=== PATIENT | male | born 1955 | race Caucasian/White ===

== ENCOUNTER 2024-07-29 07:11 | Inpatient (IN) ==
--- NOTE | 2024-05-12 14:54 | PAT Medication Instructions ---
Medication Instructions Date of Service May 12, 2024 Home Medications alfuzosin 10 mg tablet,extended release 24 hr 10 mg PO PM aspirin 81 mg tablet,delayed release 81 mg PO QAM coenzyme Q10 200 mg capsule (Co Q-10) 200 mg PO QAM fiber 1 tab PO PM lisinopril 5 mg tablet 5 mg PO QAM magnesium chloride 71.5 mg (magnesium chloride) tablet,delayed release (Slow- Mag) 71.5 mg PO QAM metoprolol succinate 50 mg tablet,extended release 24 hr (Toprol XL) 50 mg PO BID multivitamin 1 tab PO QAM rosuvastatin 40 mg tablet 40 mg PO HS trazodone 50 mg tablet 50 mg PO HS trimethoprim 100 mg tablet 100 mg PO PM MEDICATION INSTRUCTIONS: ASK your prescriber and surgeon aspirin 81 mg tablet,delayed release 81 mg PO QAM STOP taking 2 weeks before surgery coenzyme Q10 200 mg capsule (Co Q-10) 200 mg PO QAM DO NOT take the morning of surgery lisinopril 5 mg tablet 5 mg PO QAM multivitamin 1 tab PO QAM magnesium chloride 71.5 mg (magnesium chloride) tablet,delayed release (Slow- Mag) 71.5 mg PO QAM Take morning of surgery With a small sip of water, OTHERWISE NOTHING TO EAT OR DRINK AFTER MIDNIGHT: metoprolol succinate 50 mg tablet,extended release 24 hr (Toprol XL) 50 mg PO BID Take evening before surgery fiber 1 tab PO PM rosuvastatin 40 mg tablet 40 mg PO HS alfuzosin 10 mg tablet,extended release 24 hr 10 mg PO PM trazodone 50 mg tablet 50 mg PO HS trimethoprim 100 mg tablet 100 mg PO PM metoprolol succinate 50 mg tablet,extended release 24 hr (Toprol XL) 50 mg PO BID Other Notes If you have any questions please call us at [phone] or [phone] or [phone] or [phone]
--- NOTE | 2024-05-21 11:37 | Anesthesiology Consultation ---
Date of Service May 21, 2024 Assessment & Plan (1) Encounter for pre-operative examination: - Case discussed in detail with Dr. Palencia who advised patient is acceptable to proceed at current status. - medical clearance 05/26/24: "...based on my exam PAT labs, EKG and echo; pt a ppears to be at an acceptable risk of proposed procedure..." - Case discussed in detail with Dr. Dickson who advised patient should have echocardiogram updated prior to surgery. Patient and his were made aware of this at PAT visit, he reports a PCP clearance appointment 05/26 and would like to have echocardiogram ordered by PCP. Optimization form to be faxed to PCP and PAT testing faxed to that office (Dr. Bladimir Donnelly). Surgeon's office made aware. Echo was completed 05/26/24 and stable to review of cardiology records. - cardiology pre-operative notation 05/08/24: "...moderate risk...CAD s/p CABG x 3 (2009) s/p diagnostic LHC in 2020 revealing MARBLE COPER of the LCx following an abnormal stress test, bigeminal PVCs, chronic LBBB, aortic root dilation, hyperlipidemia and hypertension...feeling well...patent grafts to distal LAd, right posterior descending branch and second diagonal branch of the LAD...MALONEY graft feeds the distal LAD which is extremely small in caliber and diffusely diseased...left circumflex which was not bypassed has about a 60% ostial stenosis before 2 small marginal branches...circumflex is then totally occluded before a large posterior lateral branch...posterior lateral branch receives collaterals from the LAD and RCA...no obvious target for intervention...ischemic on a stress echo can be explained by the chronically occluded posterior lateral branch of the circumflex...not an ideal target for intervention...would recommend ongoing medical therapy and consideration of a trial of a PPI...no further ischemic or cardiac testing needed at this time...continue BB...intermediate risk of cardiac event during perioperative period...would recommend updating echocardiogram...patient would like to follow-up with cardiology as needed..." Chart Review Chart Review: Acceptable Risk for Surgery and Patient seen in Pre Admission Hannah ting Teaching & Discussion Pre-Anesthesia Teaching/Discussion Notes: Instructed NPO after midnight before surgery, except medications with 15 cc of water. Medication instructions provided according to the PAT guidelines. History Surgery Operation Date: 06/06/24 07:45 Proposed Procedures p L3-S1 Decompression and Fusion Spinal Cord Monitoring - Ricardo Gomez DO Height/Weight Height: 5 ft 11 in Weight: 112.9 kg Allergies Allergy/AdvReac Type Severity Reaction Status Date / Time No Known Allergies Allergy Verified 05/08/24 13:11 Medications Home Medications Medication Instructions Recorded Confirmed Last Taken alfuzosin 10 mg tablet,extended 10 mg PO PM 05/08/24 05/08/24 Unknown release 24 hr aspirin 81 mg tablet,delayed 81 mg PO QAM 05/08/24 05/08/24 Unknown release coenzyme Q10 200 mg capsule (Co 200 mg PO QAM 05/08/24 05/08/24 Unknown Q-10) fiber 1 tab PO PM 05/08/24 05/08/24 Unknown lisinopril 5 mg tablet 5 mg PO QAM 05/08/24 05/08/24 Unknown magnesium chloride 71.5 mg 71.5 mg PO QAM 05/08/24 05/08/24 Unknown (magnesium chloride) tablet,delayed release (Slow-Mag) metoprolol succinate 50 mg 50 mg PO BID 05/08/24 05/08/24 Unknown tablet,extended release 24 hr (Toprol XL) multivitamin 1 tab PO QAM 05/08/24 05/08/24 Unknown rosuvastatin 40 mg tablet 40 mg PO HS 05/08/24 05/08/24 Unknown trazodone 50 mg tablet 50 mg PO HS 05/08/24 05/08/24 Unknown trimethoprim 100 mg tablet 100 mg PO PM 05/08/24 05/08/24 Unknown Past Medical History Medical History Aortic root dilation 4.5 cm on 2020 echo Bigeminy bigeminal PVCs BPH (benign prostatic hyperplasia) CAD (coronary artery disease) CABG x 3 in 2009; MARBLE COPER of left Cx DDD (degenerative disc disease), lumbosacral Diverticulosis unsure of diverticulitis h/o-denies any recent flare Hyperlipidemia Hypertension controlled, stable per pt LBBB (left bundle branch block) Osteoarthritis Patient denies h/o stroke, seizures, heart failure, DM, blood clots/DVTs or blood transfusions. Exercise / Class Metabolic Activity II 4-5 Yardwork/Stairs/Walk up hill (denies chest discomfort or shortness of breath with one flight of stairs) Past Surgical History Surgical History History of cardiac cath 2020 > no stents History of colonoscopy History of tonsillectomy Hx of melanoma excision right shoulder Hx of shoulder surgery left in high school S/P correction of deviated nasal septum S/P triple vessel bypass 2009 Past Anesthesia History No Hx of Anesthesia Complications and No Family Hx of Anesthesia Complications History of PONV No Hx of PONV and No Hx of Motion Sickness Social History Smoking Status: Former smoker Do You Dip or Chew Tobacco: No Smoking End Date: 20 yrs ago Hx Alcohol Use: Yes Alcohol type: beer alcohol intake frequency: a few times a month Hx Substance Use: No substance use type: does not use Review of Systems Patient denies chest pain, shortness of breath, dyspnea on exertion, snoring, witnessed apneas, reflux, fever, chills, cough, wheezing, or palpitations. Physical Exam Vital Signs Vitals BP 118/69 P 58 TEMP 97.9 SP02 95% on RA RESP 19 Physical Patient resting comfortably in chair in no acute distress, alert and oriented, responding appropriately throughout visit Full cervical extension range of motion without pain TMD 3.5 finger breadths Mallampati Score 3 Dentition: upper plate, denies chipped or loose teeth, caps/crowns, implants or bridges Lungs: normal respiratory effort. Good air movement, clear throughout to auscultation, no adventitious breath sounds Cardiac: regular rate and rhythm, no murmurs noted Carotid arteries: negative bruit bilat Lab Results Anesthesia Preop Results Results Anesthesia Widget: WBC 6.54 K/ul (4.8-10.8) 05/21/24 Hgb 14.5 g/dl (14.0-18.0) 05/21/24 Hct 45.4 % (42.0-52.0) 05/21/24 Plt 196 K/uL (130-400) 05/21/24 Na 140 mmol/L (136-145) 05/21/24 K 5.0 mmol/L (3.5-5.1) 05/21/24 Cl 106 mmol/L (98-107) 05/21/24 CO2 28 mmol/L (21-32) 05/21/24 BUN 20 mg/dl (6-23) 05/21/24 Creat 1.14 mg/dl (0.6-1.4) 05/21/24 Glucose Level 93 mg/dl (70-99(Fasting)) 05/21/24 PT 12.4 Seconds (9.0-12.0) H 05/21/24 PTT 28 Seconds (21-31) 05/21/24 INR 1.2 (0.9-1.1) H 05/21/24 Urine Color Yellow 05/21/24 Urine Appearance Clear (Clear) 05/21/24 Urine pH 5.0 (4.5-7.5) 05/21/24 Urine Specific [place] 1.025 (1.000-1.030) 05/21/24 Urine Protein Negative (Negative) 05/21/24 Urine Glucose (UA) Negative (Negative) 05/21/24 Urine Ketones Negative (Negative) 05/21/24 Urine Blood Negative (Negative) 05/21/24 Urine Nitrite Negative (Negative) 05/21/24 Urine Bilirubin Negative (Negative) 05/21/24 Urine Urobilinogen Negative (Negative) 05/21/24 Urine Leukocyte Esterase Negative (Negative) 05/21/24 Blood Type O Positive 05/21/24 Antibody Screen NEGATIVE 05/21/24 Testing Electrocardiogram Date: 05/21/24 Sinus bradycardia, rate 58 bpm Right axis deviation LBBB Chest X-Ray Date: 05/21/24 No acute process. Echocardiogram Date: 05/26/24 EF 40-45% Mild cLVH Grade II diastolic dysfunction No LV wall motion abnormalities Mildly dilated LA Mild aortic regurgitation Moderate mitral regurgitation Mild tricuspid regurgitation Mildly dilated aortic root, 4.1 cm Large hypoechoic lesion in liver suggestive of a cyst "Consider further evaluation of mitral regurgitation' may benefit from ANTONIO"
[~2024-07-29 07:11] MED LIST: ACETAMINOPHEN 500 MG TAB PO SCH; CeleBREX 200 MG CAP PO SCH; GABAPENTIN 300 MG CAP PO SCH; LACTATED RINGER'S 1,000 ML IV SCH; LR 60ML/HR IV SCH; ceFAZolin 2000MG 2,000 MG/15 ML SYR IV SCH
[2024-07-29] MEDS ORDERED: ROCURONIUM BROMIDE 10 MG/ML 5 ML VIAL IV ONE ×4 (07:30→13:15)
[2024-07-29] MEDS ORDERED: ONDANSETRON INJ 2 MG/ML 2 ML VIAL ONE (07:30)
[2024-07-29] MEDS ORDERED: MIDAZOLAM HCL 1 MG/ML 2ML VIAL ONE (07:30)
[2024-07-29] MEDS ORDERED: GLYCOPYRROLATE 0.2 MG/ML VIAL ONE (07:30)
[2024-07-29] MEDS ORDERED: LIDOCAINE 2% 2 ML VIAL/AMP(20MG/ML) INFIL ONE (07:30)
[2024-07-29] MEDS ORDERED: fentaNYL citrate PF 100 MCG/2 ML VIAL ONE ×2 (07:30→11:21)
[2024-07-29] MEDS ORDERED: DEXAMETHASONE SOD INJ 4 MG/ML VIAL ONE (07:30)
[2024-07-29] MEDS ORDERED: PROPOFOL IV EMULSION 10 MG/ML 20 ML VIAL IV ONE (07:30)
[2024-07-29] MEDS ORDERED: SUGAMMADEX SODIUM 200 MG/2 ML VIAL IV ONE (07:36)
[2024-07-29] MEDS: LR 15ML/HR IV SCH (07:58)
[2024-07-29] MEDS: ACETAMINOPHEN 500 MG TAB PO SCH (07:58)
[2024-07-29] MEDS: CeleBREX 200 MG CAP PO SCH (07:59)
[2024-07-29] MEDS: LR 60ML/HR IV SCH (07:59)
[2024-07-29] MEDS: GABAPENTIN 300 MG CAP PO SCH (07:59)
--- NOTE | 2024-07-29 08:52 | History & Physical Bridge Note ---
Date of Service July 29, 2024 History & Physical Bridge Note I have examined the patient, reviewed the History & Physical and in the interval since the performance of the History & Physical I have noted the following changes of clinical significance: no changes noted
[2024-07-29] MEDS ORDERED: HYDROmorphone INJ 1 MG/ML SYRINGE IV PRN ×2 (08:53→13:42)
[2024-07-29] MEDS ORDERED: ATROPINE SULFATE 0.1 MG/ML 10ML SYR IV PRN (08:53)
[2024-07-29] MEDS ORDERED: PROMETHAZINE HCL 6.25 MG in SODIUM CHLORIDE 0.9% 50 ML IV PRN (08:53)
[2024-07-29] MEDS ORDERED: LABETALOL HCL IV 5 MG/ML 20ML IV PRN (08:53)
[2024-07-29] MEDS ORDERED: ONDANSETRON INJ 2 MG/ML 2 ML VIAL IV PRN ×2 (08:53→13:42)
--- NOTE | 2024-07-29 08:53 | History & Physical Report ---
Date of Service July 29, 2024 Assessment & Plan (1) Neurogenic claudication due to lumbar spinal stenosis: Plan: L3-S1 decompression and fusion History of Present Illness Chief Complaint: Back and leg pain Primary Care Provider: David Donnelly MD This is a 69-year-old male presents with chronic persistent back and leg pain after failing course of nonoperative care is here for surgical invention. Allergies Allergy/AdvReac Type Severity Reaction Status Date / Time No Known Allergies Allergy Verified 07/29/24 07:46 Home Medications Medication Instructions Recorded Confirmed Type alfuzosin 10 mg tablet,extended 10 mg PO PM 05/08/24 07/29/24 History release 24 hr (Uroxatral) aspirin 81 mg tablet,delayed 81 mg PO QAM 05/08/24 07/29/24 History release coenzyme Q10 200 mg capsule (Co 200 mg PO QAM 05/08/24 07/29/24 History Q-10) fiber 1 tab PO PM 05/08/24 07/29/24 History lisinopril 5 mg tablet 5 mg PO QAM 05/08/24 07/29/24 History magnesium chloride 71.5 mg 71.5 mg PO QAM 05/08/24 07/29/24 History (magnesium chloride) tablet,delayed release (Slow-Mag) metoprolol succinate 50 mg 50 mg PO BID 05/08/24 07/29/24 History tablet,extended release 24 hr (Toprol XL) multivitamin 1 tab PO QAM 05/08/24 07/29/24 History rosuvastatin 40 mg tablet 40 mg PO HS 05/08/24 07/29/24 History trazodone 50 mg tablet 50 mg PO HS 05/08/24 07/29/24 History trimethoprim 100 mg tablet 100 mg PO PM 05/08/24 07/29/24 History Vitamin D3 1 tab PO BID 07/08/24 07/29/24 History loratadine 10 mg tablet (Claritin) 10 mg PO DAILY 07/08/24 07/29/24 History Past Med/Surg History Problem List (Updated 07/29/24 @ 08:53 by Ricardo Gomez DO) Neurogenic claudication due to lumbar spinal stenosis Medical History Aortic root dilation 4.5 cm on 2020 echo Bigeminy bigeminal PVCs BPH (benign prostatic hyperplasia) CAD (coronary artery disease) CABG x 3 in 2009; [employer] of left Cx DDD (degenerative disc disease), lumbosacral Diverticulosis unsure of diverticulitis h/o-denies any recent flare Hyperlipidemia Hypertension controlled, stable per pt LBBB (left bundle branch block) Osteoarthritis Surgical History History of cardiac cath 2020 > no stents History of colonoscopy History of tonsillectomy Hx of melanoma excision right shoulder Hx of shoulder surgery left in high school S/P correction of deviated nasal septum S/P triple vessel bypass 2009 Social History Smoking Status: Former smoker Smoking End Date: 20 yrs ago; Second Hand Exposure: No; Do You Dip or Chew Tobacco: No; Tobacco Cessation Education Requested by Patient: No Hx Alcohol Use: Yes Alcohol type: beer Hx Substance Use: Yes Substance Use Type Other:: rare use > advised Preferred Language: Icelandic Communication Ability: Effective Costing Manager Required: No Beliefs That Will Affect Care: None Current Living Situation: Spouse Other Information That Helps Us Care for You: No Feels Safe at Home: Yes Safety Concerns: Feels Safe At This Time Assistive Devices: Denture - Upper and Glasses Physical Exam Physical Exam: Patient is alert and oriented Heart regular rhythm Lungs clear Results & Data Results & Data Vital Signs (Past 12 Hours) Vital Signs Temp Pulse Resp BP Pulse Ox O2 Del Method 07/29/24 07:51 36.5 C 92 H 22 146/81 H 96 Room Air
[2024-07-29] MEDS: ceFAZolin 2000MG 2,000 MG/15 ML SYR IV SCH ×2 (09:16→17:39)
[2024-07-29] MEDS: BUPIVACAINE/EPINEPHRINE 0.25% 1:200,000 30 ML VIAL ONE (10:06)
[2024-07-29] MEDS: ceFAZolin 330 MG/ML 1 GM VIAL ONE (10:08)
[2024-07-29] MEDS: SURGICEL ABSORB HEMOSTAT 2IN X 14IN TOP ONE (11:44)
[2024-07-29] MEDS: FLOSEAL HEMOSTATIC MATRIX 10ML TOP ONE (12:08)
--- NOTE | 2024-07-29 12:20 | Operative Report ---
Post Operative Report Pre & Post Diagnosis Operation Date: 07/29/24 09:05 Pre-Op Diagnosis: Spinal Stenosis with Neurogenic Claudication, Lumbar spinal stenosis Spondylolisthesis L4-L5 Post-Op Diagnosis: Same I identified the patient and participated in the time-out.: Yes Procedure Operation Date: 07/29/24 09:05 Actual Procedures #1 lumbar decompression with bilateral medial facetectomies and foraminotomies L3-L4, L4-L5 and L5-S1. #2 posterior spinal fusion L3-S1. #3 placement posterior segmental instrumentation L3-S1. #4 interbody fusion L3-L4, L4-5 and L5-S1. #5 placement of Spira 11 x 26 mm at L3-L4, 10 x 26 mm at L4-L5 and 14 x 26 mm x 2 at L5-S1. #6 placement locally harvested morselized autograft posterior gutters. #7 placement infuse collagen sponge combined with Koros in the posterior lateral gutters and os design interbody space. #8 application of versa wrap of the exposed dura. Surgeon Ricardo Gomez, DO [employer]cher[employer] Jessica Valdez Estimated Blood Loss 650 Findings See Below The patient is 5 foot 11 weighing over 112 kg with a BMI in excess of 34. This combined with an EBL of greater than 600 cc. His significant technical difficulty with positioning exposure and the procedure itself. This at least 50% increased operative time. And recommending a modifier 22. Specimens None Indications This is a 69-year-old male presents publish diagnosis of failed course of nonoperative care is here for surgical invention. Description of Procedure Patient is met with identified informed consent obtained. Patient was then taken to the operative suite underwent intubation placed in a prone position on the Niall table on top of the Hemanth frame. All bony promises well-padded eyes inspected to ensure no external pressure placed upon the. This point the lumbar spine was prepped and draped in normal sterile fashion. Sharp dissection with the assistance of Bovie cautery was performed down to and exposing the lamina transverse processes of L3-L4-L5 and sacral ala bilaterally. From caudal to cephalad fashion complete laminectomy of L5 was performed including bilateral medial facetectomies and foraminotomies addressing severe spinal stenosis. Then performed a complete laminectomy of L4 with bilateral medial facetectomies and foraminotomies again addressing severe spinal stenosis and lastly a complete laminectomy of L3 with bilateral medial facetectomies and foraminotomies addressing severe spinal stenosis. Pedicle screws were then placed in L3-L4-L5 and S1 levels bilaterally with assistance of fluoroscopy the proper size jaclyn contoured and placed. By way of transforaminal approach on the right discectomy of L5-S1 was performed endplates guided to subcortical and bone and a 14 x 26 mm spiral cage filled with os design bone graft tapped in position. Then proceeded to the transforaminal region at L5-S1 on the left. Again discectomy performed. Endplates grade 2 subcortical main bone and a second 14 x 26 mm spiral cage filled with os designed tapped into position. Then proceeded to L for L5 transforaminal region on the right. A complete discectomy was performed. Endplates burred to subcortical bleeding bone. A 10 x 26 mm Spira cage filled with os design bone graft tapped in position. Lastly approached L3-L4. Again by way of transforaminal approach and right a complete discectomy performed endplates corrected to subcortical white bone and a 11 x 26 mm Spira cage filled with os design tapped in position. The rods were then locked in final position bilaterally. The transverse processes of L3 L4-5 and the sacral ala burred to subcortical waiting room. Infuse collagen sponge combined with Koros and local autograft placed in the posterior gutters. 15 round MONAE drain inserted. Versa wrap placed over the exposed dura. The incision was then closed with 1 Vicryl the fascia 2-0 Vicryl subcutaneously and 4 Monocryl for final skin closure. Steri-Strips sterile dressing placed. Patient waken taken PACU stable condition. Please note spinal cord monitoring was utilized at the procedure no changes noted. Jessica Valdez was present out the entire procedure and all the patient positioning complex portions of the surgery and fascial closure. Im ordering 20 grams of Triple [place] Collagen Powder (Authentic Response [id number]) to treat an incision wound that was caused by a spine procedure. The incision is approximately 2 cm(W) x 4 cm(L) into the joint (D) in size and is a full thickness wound. Triple [place] collagen comes in 1 gram packets so 20 packets were ordered. Given the size of the wound, with light to moderate exudate I chose to order a 20 day supply. The patient will be provided instructions for proper application of the collagen wound kit. The patient will be asked to apply the collagen powder daily and then cover it with sterile dressings dispensed. Collagen was selected as I expect the collagen to attract monocytes and fibroblasts, act as a sacrificial substrate for MMPs, and ultimately proved a matrix for tissue and vessel growth. The collagen will act as a primary dressing in this scenario. It is medically necessary for proper healing of these wounds to improve bioavailability and contact with each wound surface, this is also to help prevent infection of wounds and promote healing ultimately leading to a better healing outcome and limit the risk of infection. I attest to the content of the Intraoperative Record and any orders documented therein. Any exceptions are noted below.
--- OUTSIDE RECORDS SUMMARY | 2024-07-29 13:27 | External Medical Summary | Continuity of Care Document ---
Author Name Unknown Organization [facility] Address [address] [place] [address] Phone [phone] Care Team Providers Care Production Finisher Name Role Phone Dermatology-[facility] - Dermatology Care Team Informat ion Senior Abap Developer [phone] [facility] Cardiology Care Team Informat ion Senior Abap Developer [phone] Orthopedic Surgery [facility] - [facility] Care Team Information Senior Abap Developer [phone] Aditi Glover D.P.M. Care Team Information Rece iver [phone] Riley Palmer MD Care Team Information Senior Abap Developer [phone] [facility] Office Care Team Information Senior Abap Developer [phone] Ricardo Gomez DO Care Team Information Receive r [phone] [facility] - [facility] Care Team Information Senior Abap Developer [phone] [facility] [employer] Care Team Information Re ceiver [phone] Problems Active Problems Provider Date Coronary atherosclerosis David Donnelly MD Onset: 06/29/2016 Essential hypertension David Donnelly MD Onset: 0 03/10/2013 Mixed hyperlipidemia David Donnelly MD Onset: Chronic prostatitis David Donnelly MD Onset: 04/2013 Hypomagnesemia David Donnelly MD Onset: 12/31/19 15 Ex-smoker David Donnelly MD Onset: 12/31/19 15 Note: 30 yr. hx Insomnia David Donnelly MD Onset: 04/11/20 17 Spinal stenosis of lumbosacral region David gill MD Onset: 04/11/2017 History of coronary artery bypass grafting David Donnelly MD Onset: 05/28/2019 Chronic combined systolic an d diastolic heart failure David Donnelly MD Onset: 06/25/2024 Morbid obesity David Donnelly MD Onset: 12/12/19 Social History Type Date Description Comments Sex Unknown Cigarette Use 04/11/2017 Quit - Age 48 Tobacco Use Start: Unknown End: Unknown Former Cigarette Smoker Smoking Status Reviewed: 06/25/24 Former Cigarette Smoker Tobacco Use Start: Unknown Never Smoked Cigars Tobacco Use Start: Unknown Never Smoked A Pipe Smokeless Tobacco Never Used Smo keless Tobacco ETOH Use Occasionally con sumes alcohol Tobacco Use Reviewed: 09/03/04 Quit Smoking post 30 yr hx Recreational Drug Use Denies Drug Use Exercise Type/Frequency Exercises sporadi adarsh Limited due to spinal stenosis and R leg radiculopathy Allergies and adverse reactions Description No Known Drug Allergies Medications Active Medications SIG Qnty Indications Order ing Provider Date Sildenafil Yjoxjmj92og Tablets 1 to 5 tablets prior to intercourse as needed 30tabs N52.01 David Donnelly MD 05/18/2021 Metoprolol Succinate ER50mg Tablets ER 24HR Take 1 Tablet Twice A Day 180tabs I25.720 David Donnelly MD 04/11/2021 I10 Trazodone KEM68he Tablets Take 1 Tablet AT Bedtime 90tabs G47.00 Zhen Bowman MD 12/06/[address] 1 po qd 30tabs E83.42 Unknown 0 Multiple VitaminTablets 30tabs Unknow n Ucfggqh77ax Tablets DR 1 po qd Unknown Ajgxhxif723hl Tablets 2 po qd Unknown Alfuzosin HCL ER10mg Tablets ER 24HR Take 1 Tablet Daily 90tabs N41.1 David Donnelly MD Byfbvepzzz0nw Tablets take 1 tablet daily 90tabs I10 David Donnelly MD Muyiyscgagpi258om Tablets take 1 tablet daily 90tabs N41.1 David Donnelly MD Rosuvastatin Zfczjkt01ik Tablets 1 by mouth every day 90tabs E78.2 Zhen Bowman MD [id number] Capsules 1 by mouth every day Unknown History Medications Kaevnhliwezv375fp Tablets 2 tabs by mouth today then 1 tab daily x 4 days 1Pak R05.9 David Donnelly MD 06/10/2024 - 06/15/2024 Whukzozlgu03fm Tablets 1 tab once daily x 5 days 5tabs R05.9 David Donnelly MD 06/10/2024 - 06/15/2024 Immunizations CPT Code Status Date Vaccine Lot # [id number] Given 06/25/2024 Influenza Vac, Split, Preservative Free High Dose Age 65 & > [id number] 92293 Given 06/28/2023 Sarscov2 Vaccin e 50 mcg/0.5 ML For Im Use 12 Yrs And Older [id number] 08713 Given 06/06/2023 Influenza Vaccine High Do se 0.5ML Age 65 & > [id number] 16615 Given 05/29/2022 Influenza Vaccine High Do se 0.5ML Age 65 & > [id number] 89918 Given 12/14/2021 Moderna Covid-1 9 Vaccine 50mcg Booster-EMR Doc Only [id number] 00406 Given 06/27/2021 Moderna Covid-1 9 Vaccine 50mcg Booster-EMR Doc Only [id number] Given 06/15/2021 Influenza Vaccine High Do se 0.5ML Age 65 & > [id number] 04217 Given 05/18/2021 Pneumococcal Vaccine/Pneu movax 23 [id number] 61202 Given 11/16/2020 Moderna Sars-Co v-2 (Cov-19) vacc,100 mcg/ 0.5 mL 12Y+EMR Doc Only [id number] 09794 Given 10/01/2020 Moderna Sars-Co v-2 (Cov-19) vacc,100 mcg/ 0.5 mL 12Y+EMR Doc Only [id number] 74042 Given 06/09/2020 Influenza Vaccine High Do se 0.5ML Age 65 & > [id number] 23675 Given 04/28/2020 Pneumococcal Conjugate-Pr evnar 13 [id number] 73200 Given 06/18/2019 Influenza Virus Vaccine, Quadrivalent, Im Use [id number] 47868 Given 06/14/2018 Influenza Virus Vaccine, Quadrivalent, Im Use [id number] 20811 Given 06/06/2017 Influenza Virus Vaccine, Quadrivalent, Im Use [id number] 62451 Given 06/30/2016 Influenza Virus Vaccine, Quadrivalent, Im Use [id number] 81130 Given 07/26/2015 Zostavax Vaccine 83814 Given 06/15/2015 Influenza Virus Vaccine, Quadrivalent, Im Use [id number] 61578 Given 06/23/2014 Influenza Virus Vaccine, Quadrivalent, Im Use [id number] 25233 Given 06/23/2013 Influenza Vac, Split 6 Mo nths And Older [id number] 64708 Given 03/07/2010 Pneumococcal Vaccine/Pneu movax 23 77998 Given 09/03/2009 Tdap (Tetanus, diphtheria & acel. pertussis) Adacel or Boostrix Vital Signs Date Vital Result Comment 06/25/2024 10:02am BP Systolic 128 mmHg BP Diastolic 76 mmHg Heart Rate 64 /min Respiratory Rate 16 /min Weight 246.00 lb Weight 111.586 kg Height 70 inches 5'10" BMI (Body Mass Index) 35.3 kg/m2 [place] Body Weight 166 lb 06/10/2024 7:43am Body Temperature 97.8 F Heart Rate 65 /min Respiratory Rate 16 /min Weight 246.00 lb Weight 111.586 kg Results Test Acquired Date Facility Test Result H/L Range N ote Comp. Met 06/04/2024 [facility]. [address] [place] [address] [phone] Glucose 104 mg/dL 70-110 BUN 16 mg/dL 6-25 Creatinine 1.0 mg/dL 0.7-1.3 Sodium 141 mEq/L 135-145 Potassium 4.3 mEq/L 3.5-5.0 Chloride 105 mEq/L 95-107 Co-2 25 mEq/L 24-31 Alk Phos 58 IU/L 43-122 Alt(SGPT) 20 IU/L 10-40 Ast(Sgot) 20 IU/L 3-42 T.Bilirubin 0.6 mg/dL 0.1-1.3 Calcium 8.9 mg/dL 8.5-10.6 Tot.Protein 6.4 g/dL 5.8-8.0 Albumin 4.3 g/dL 3.0-5.2 Globulin 2.1 g/dL 2.0-3.4 GFR 79 ML/MIN/1.73 SQM >60 Lipid 06/04/2024 [facility]. [address] [place] [address] [phone] Cholesterol 113 mg/dL 0-200 1 Triglyceride 82 mg/dL 0-150 2 HDLD 49 mg/dL See Comment 3 Measured LDL 66 mg/dL 0-130 4 Calc VLDL 16.4 mg/dL See Comment 5 Chol/HDL 2.3 RATIO See Comment 6 Non-HDL 64 mg/dL See Comment 7 Laboratory test finding 06/04/2024 [facility]. [address] [place] [address] [phone] Psa2 1.2 ng/mL 0.0-4.0 1 CHOLESTEROL Less than 200mg/dl Low risk 201-239 mg/dl Borderline risk Equal to or greater 240mg/dl High risk 2 TRIGLYCERIDES Less than 150mg/dl Normal 150-199mg/dl Borderline 200-499mg/dl High Greater than 500mg/dl Very High 3 HDL <40mg/dl Elevated Risk 41-59mg/dl Risk >=60mg/dl Least Risk 4 LDL <100mg/dl Optimal 100-129mg/dl Near Optimal 130-159mg/dl Borderline High 160-189mg/dl High >=190 Very High 5 VLDL Less than 30mg/dl Normal 6 CHOL/HDL <4.0 Optimal 4.0-5.0 Borderline >6.0 High Risk 7 NON-HDL 30mg/dl higher than LDL Target Procedures Date Code Description Status 06/25/2024 3078F PVRP Diastolic BP <80 mmHg C ompleted 06/25/2024 3074F PVRP Systolic BP <130 mmHg C ompleted 06/25/2024 1101F PT SCR Future Fall Risk, No Fall Or 1 W/Out Injury Completed 06/10/2024 G2211 Continuation of care e/m vis it add on Completed 06/04/2024 20232 Venipuncture Routine Complet ed 05/26/2024 41005 Interpretation Echocardiogra phy, Tranthoracic Completed 05/26/2024 3078F PVRP Diastolic BP <80 mmHg C ompleted 05/26/2024 3074F PVRP Systolic BP <130 mmHg C ompleted 03/24/2024 G2211 Continuation of care e/m vis it add on Completed 02/13/2023 [id number] Colonoscopy Completed Medical Devices Description No Information Available Encounters Type Date Location Provider Dx Diagnosis Office Visit 06/25/2024 10:00a Raghav Donnelly MD I25.10 Athscl heart di sease [place] coronary artery w/o ang pctrs I50.42 Chronic combined sys tolic and diastolic hrt fail I10 Essential (primary) hypertension E78.2 Mixed hyperlipidemia E66.01 Morbid (severe) obes ity due to excess calories N41.1 Chronic prostatitis E83.42 Hypomagnesemia G47.00 Insomnia, unspecifie d M48.07 Spinal stenosis, lum bosacral region 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 Z00.00 Encntr for general a dult medical exam w/o abnormal findings Z68.35 Body mass index [BMI ] 35.0-35.9, adult Office Visit 06/10/2024 7:45a Raghav ledezma MD R05.9 Cough, unspecified Office Visit 05/26/2024 10:00a Raghav gill MD Z01.818 Encounter for other preprocedural examination M48.07 Spinal stenosis, lum bosacral region I25.10 Athscl heart disease of [place] coronary artery w/o ang pctrs I10 Essential (primary) hypertension E78.2 Mixed hyperlipidemia E66.01 Morbid (severe) obes ity due to excess calories 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 Z68.35 Body mass index [BMI ] 35.0-35.9, adult Office Visit 03/24/2024 11:00a Raghav Donnelly MD M48.07 Spinal stenosis, lumbosacral region Assessments Date Code Description Provider 06/25/2024 I25.10 Atherosclerotic heart disease of [place] coronary artery without angina pectoris David Donnelly MD 06/25/2024 I50.42 Chronic combined systolic (congestive) and diastolic (congestive) heart failure David Donnelly MD 06/25/2024 I10 Essential (primary) hyperten shannen David Donnelly MD 06/25/2024 E78.2 Mixed hyperlipidemia David child MD 06/25/2024 E66.01 Morbid (severe) obesity due to excess calories David Donnelly MD 06/25/2024 N41.1 Chronic prostatitis David sierra MD 06/25/2024 E83.42 Hypomagnesemia David Donnelly MD 06/25/2024 G47.00 Insomnia, unspecified David Donnelly MD 06/25/2024 M48.07 Spinal stenosis, lumbosacral region David Donnelly MD 06/25/2024 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 David Donnelly MD 06/25/2024 Z00.00 Encounter for ge neral adult medical examination without abnormal findings David Donnelly MD 06/25/2024 Z68.35 Body mass index [BMI] 35.0-3 5.9, adult David Donnelly MD 06/10/2024 R05.9 Cough, unspecified David hanley MD 06/04/2024 E78.2 Mixed hyperlipidemia David child MD 06/04/2024 E78.2 Mixed hyperlipidemia [place] [facility] 06/04/2024 N41.1 Chronic prostatitis David sierra MD 06/04/2024 N41.1 Chronic prostatitis [facility] Nurse 05/26/2024 I25.10 Atherosclerotic heart disease of [place] coronary artery without angina pectoris Tomi Mcnair DO 05/26/2024 I25.10 Atherosclerotic heart disease of [place] coronary artery without angina pectoris David Donnelly MD 05/26/2024 Z01.818 Encounter for other preproce dural examination David Donnelly MD 05/26/2024 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 Tomi Mcnair, 05/26/2024 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 David Donnelly MD 05/26/2024 M48.07 Spinal stenosis, lumbosacral region David Donnelly MD 05/26/2024 I25.10 Atherosclerotic heart disease of [place] coronary artery with David Donnelly MD 05/26/2024 I10 Essential (primary) hyperten shannen David Donnelly MD 05/26/2024 E78.2 Mixed hyperlipidemia David child MD 05/26/2024 E66.01 Morbid (severe) obesity due to excess calories David Donnelly MD 05/26/2024 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 David Donnelly MD 05/26/2024 Z68.35 Body mass index [BMI] 35.0-3 5.9, adult David Donnelly MD 05/26/2024 I25.10 Atherosclerotic heart disease of [place] coronary artery without angina pectoris ECHO [facility] 05/26/2024 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 ECHO [facility] 03/24/2024 M48.07 Spinal stenosis, lumbosacral region David Donnelly MD Plan of Treatment Future Appointment(s):* 12/16/2024 7:00 am - [facility] * 12/23/2024 8:45 am - David Donnelly MD at [facility] Functional Status Description No Information Available Mental Status Description No Information Available Referrals Refer to Dr Reason for Referral Status Appt Ricardo Harding DO arthritis, canal phyllis nosis and bulging discs that are pressing on nerves that is all worsening from prior study Pt has imaged from MRI from 03/2024 Closed 05/01/2024 [facility] [address] [place] [address], [place] [id number] [phone]
--- OUTSIDE RECORDS SUMMARY | 2024-07-29 13:28 | External Medical Summary | Continuity of Care Document ---
Author Name Unknown Organization [facility] Address [address] [place] [address] Phone [phone] Care Team Providers Care Spectrograph Operator Name Role Phone Dermatology-[facility] - Dermatology Care Team Informat ion Plaster Mold Maker [phone] [facility] Cardiology Care Team Informat ion Plaster Mold Maker [phone] Orthopedic Surgery S - [facility] Care Team Information Plaster Mold Maker [phone] Aditi Glover D.P.M. Care Team Information Rece iver [phone] Riley Palmer MD Care Team Information Plaster Mold Maker [phone] [facility] Office Care Team Information Plaster Mold Maker [phone] Ricardo Gomez DO Care Team Information Receive r [phone] [facility] - [facility] Care Team Information Plaster Mold Maker [phone] [employer] [employer] Care Team Information Re ceiver [phone] Problems Active Problems Provider Date Coronary atherosclerosis [...] bypass grafting David Donnelly MD Onset: 05/28/2019 Morbid obesity David Donnelly MD Onset: 12/12/19 Social History Type Date Description Comments Sex Unknown Cigarette Use 04/11/2017 Quit - Age 48 Tobacco Use Start: Unknown End: Unknown Former Cigarette Smoker Smoking Status Reviewed: 06/10/24 Former Cigarette Smoker Tobacco Use Start: Unknown [...] SIG Qnty Indications Order ing Provider Date Hjmeflyxnqfi789dd Tablets 2 tabs by mouth today then 1 tab daily x 4 days 1Pak R05.9 David Donnelly MD 06/10/2024 - 06/15/2024 Nfbmakahla50se Tablets 1 tab once daily x 5 days 5tabs R05.9 David Donnelly MD 06/10/2024 - 06/15/2024 Sildenafil Ocjxcph27th Tablets 1 to 5 tablets prior to intercourse as needed 30tabs N52.01 David Donnelly MD 05/18/2021 Metoprolol Succinate ER50mg Tablets ER 24HR Take 1 Tablet Twice A Day 180tabs I25.720 David Donnelly MD 04/11/2021 I10 Trazodone WFI40dk Tablets Take 1 Tablet AT Bedtime 90tabs G47.00 Zhen Bowman MD 12/06/[address] Slow-MagTablets [address] 1 po qd 30tabs E83.42 Unknown 0 Multiple VitaminTablets 30tabs Unknow n Pmqioly27dz Tablets DR 1 po qd Unknown Zelvkxaa367ty Tablets 2 po qd Unknown Alfuzosin HCL ER10mg Tablets ER 24HR Take 1 Tablet Daily 90tabs N41.1 David Donnelly MD Tathxstfmj6gl Tablets take 1 tablet daily 90tabs I10 David Donnelly MD Lzgnlwjlesop517by Tablets take 1 tablet daily 90tabs N41.1 David Donnelly MD Rosuvastatin Zhdwfdv77tt Tablets 1 by mouth every day 90tabs E78.2 Zhen Bowman MD Coq-[id number] Capsules 1 by mouth every day Unknown Immunizations CPT Code Status Date Vaccine Lot # [id number] Given 06/28/2023 Sarscov2 Vaccin e 50 mcg/0.5 ML For Im Use 12 Yrs And Older [id number] 80403 Given 06/06/2023 Influenza Vaccine High Do se 0.5ML Age 65 & > [id number] 94976 Given 05/29/2022 Influenza Vaccine High Do se 0.5ML Age 65 & > [id number] 07421 Given 12/14/2021 Moderna Covid-1 9 Vaccine 50mcg Booster-EMR Doc Only [id number] 48857 Given 06/27/2021 Moderna Covid-1 9 Vaccine 50mcg Booster-EMR Doc Only 74447 Given 06/15/2021 Influenza Vaccine High Do se 0.5ML Age 65 & > [id number] 16576 Given 05/18/2021 Pneumococcal Vaccine/Pneu movax 23 [id number] 66350 Given 11/16/2020 Moderna Sars-Co v-2 (Cov-19) vacc,100 mcg/ 0.5 mL 12Y+EMR Doc Only [id number] 02445 Given 10/01/2020 Moderna Sars-Co v-2 (Cov-19) vacc,100 mcg/ 0.5 mL 12Y+EMR Doc Only [id number] 50106 Given 06/09/2020 Influenza Vaccine High Do se 0.5ML Age 65 & > [id number] 51398 Given 04/28/2020 Pneumococcal Conjugate-Pr evnar 13 [id number] 48044 Given 06/18/2019 Influenza Virus Vaccine, Quadrivalent, Im Use [id number] 19958 Given 06/14/2018 Influenza Virus Vaccine, Quadrivalent, Im Use [id number] 55856 Given 06/06/2017 Influenza Virus Vaccine, Quadrivalent, Im Use [id number] 39913 Given 06/30/2016 Influenza Virus Vaccine, Quadrivalent, Im Use [id number] 53366 Given 07/26/2015 Zostavax Vaccine 17784 Given 06/15/2015 Influenza Virus Vaccine, Quadrivalent, Im Use [id number] 69695 Given 06/23/2014 Influenza Virus Vaccine, Quadrivalent, Im Use [id number] 07042 Given 06/23/2013 Influenza Vac, Split 6 Mo nths And Older [id number] 90043 Given 03/07/2010 Pneumococcal Vaccine/Pneu movax 23 42239 Given 09/03/2009 Tdap (Tetanus, diphtheria & acel. pertussis) Adacel or Boostrix Vital Signs Date Vital Result Comment 06/10/2024 7:43am Body Temperature 97.8 F Heart Rate 65 /min Respiratory Rate 16 /min Weight 246.00 lb Weight 111.586 kg 05/26/2024 10:12am BP Systolic 122 mmHg BP Diastolic 64 mmHg Heart Rate 65 /min Respiratory Rate 16 /min Weight 246.00 lb Weight 111.586 kg Height 70 inches 5'10" BMI (Body Mass Index) 35.3 kg/m2 [place] Body Weight 166 lb Results Test Acquired Date Facility Test Result H/L Range N ote Comp. Met 06/04/2024 [facility]. [address] [place] [address] Glucose 104 mg/dL 70-110 BUN 16 mg/dL [...] GFR 79 ML/MIN/1.73 SQM >60 Lipid 06/04/2024 [facility]. [address] [place] [address] [phone] Cholesterol 113 mg/dL 0-200 1 Triglyceride 82 mg/dL 0-150 2 HDLD 49 mg/dL See Comment 3 Measured LDL 66 mg/dL 0-130 4 Calc VLDL 16.4 mg/dL See Comment 5 Chol/HDL 2.3 RATIO See Comment 6 Non-HDL 64 mg/dL See Comment 7 Laboratory test finding 06/04/2024 [facility]. [address] [place] [address] Psa2 1.2 ng/mL 0.0-4.0 1 CHOLESTEROL Less [...] LDL Target Procedures Date Code Description Status 06/04/2024 16718 Venipuncture Routine Complet ed 05/26/2024 74725 Interpretation Echocardiogra phy, Tranthoracic Completed 05/26/2024 3078F PVRP Diastolic BP <80 mmHg C ompleted 05/26/2024 3074F PVRP Systolic BP <130 mmHg C ompleted 03/24/2024 G2211 Continuation of care e/m vis it add on Completed 12/12/2023 G2211 Continuation of care e/m vis it add on Completed 12/12/2023 3078F PVRP Diastolic BP <80 mmHg C ompleted 12/12/2023 3074F PVRP Systolic BP <130 mmHg C ompleted 02/13/2023 [id number] Colonoscopy Completed Medical Devices Description No Information Available Encounters Type Date Location Provider Dx Diagnosis Office Visit 06/10/2024 7:45a Raghav Donnelly MD R05.9 Cough, unspecif ied Office Visit 05/26/2024 10:00a Raghav Donnelly MD Z01.818 Encounter for o ther preprocedural examination M48.07 Spinal stenosis, lum bosacral region I25.10 Athscl heart disease of [place] coronary artery w/o ang pctrs I10 Essential (primary) hypertension E78.2 Mixed hyperlipidemia E66.01 Morbid (severe) obes ity due to excess calories 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 Z68.35 Body mass index [BMI ] 35.0-35.9, adult Office Visit 03/24/2024 11:00a Raghav Donnelly MD M48.07 Spinal stenosis, lumbosacral region Office Visit 12/12/2023 10:30a Raghav Donnelly MD I25.10 Athscl heart disease of [place] coronary artery w/o ang pctrs I10 Essential (primary) hypertension E78.2 Mixed hyperlipidemia E66.01 Morbid (severe) obes ity due to excess calories N41.1 Chronic prostatitis M48.07 Spinal stenosis, lum bosacral region E83.42 Hypomagnesemia G47.00 Insomnia, unspecifie d 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 Z68.35 Body mass index [BMI ] 35.0-35.9, adult Assessments Date Code Description Provider 06/10/2024 R05.9 Cough, unspecified David hanley MD 06/04/2024 E78.2 Mixed hyperlipidemia [facility] [place] [facility] 06/04/2024 N41.1 Chronic prostatitis [facility] Nurse 05/26/2024 I25.10 Atherosclerotic heart disease of [place] coronary artery without angina pectoris Tomi Mcnair, DO 05/26/2024 I25.10 Atherosclerotic heart disease of [place] coronary artery without angina pectoris David Donnelly MD 05/26/2024 Z01.818 Encounter for other preproce dural examination David Donnelly MD 05/26/2024 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 Tomi Mcnair, DO 05/26/2024 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 David Donnelly MD 05/26/2024 M48.07 Spinal stenosis, lumbosacral region David Donnelly MD 05/26/2024 I25.10 Atherosclerotic heart disease of [place] coronary artery with David Donnelly MD 05/26/2024 I10 Essential (primary) hyperten shannen David Donnelly MD 05/26/2024 E78.2 Mixed hyperlipidemia David child MD 05/26/2024 E66.01 Morbid (severe) obesity due to excess calories David Donnelly MD 05/26/2024 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 David Donnelly MD 05/26/2024 Z68.35 Body mass index [BMI] 35.0-3 5.9, adult David Donnelly MD 05/26/2024 I25.10 Atherosclerotic heart disease of [place] coronary artery without angina pectoris ECHO [facility] 05/26/2024 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 ECHO [facility] 03/24/2024 M48.07 Spinal stenosis, lumbosacral region David Donnelly MD 12/12/2023 I25.10 Atherosclerotic heart disease of [place] coronary artery with David Donnelly MD 12/12/2023 I10 Essential (primary) hyperten shannen David Donnelly MD 12/12/2023 E78.2 Mixed hyperlipidemia David child MD 12/12/2023 E66.01 Morbid (severe) obesity due to excess calories David Donnelly MD 12/12/2023 N41.1 Chronic prostatitis David sierra MD 12/12/2023 M48.07 Spinal stenosis, lumbosacral region David Donnelly MD 12/12/2023 E83.42 Hypomagnesemia David Donnelly MD 12/12/2023 G47.00 Insomnia, unspecified David Donnelly MD 12/12/2023 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 David Donnelly MD 12/12/2023 Z68.35 Body mass index [BMI] 35.0-3 5.9, adult David Donnelly MD Plan of Treatment Future Appointment(s):* 06/25/2024 10:00 am - David Donnelly MD at [facility] 06/10/2024 - David Donnelly MD* R05.9 Cough, unspecified* New Medication:* Azithromycin 250 mg - 2 tabs by mouth today then 1 tab daily x 4 days * Prednisone 50 mg - 1 tab once daily x 5 days * Comments:* 1. sx are likely allergic in nature 2. will tx with azithromycin and prednisone to be sure it's not infectious 3. f/u prn * Follow up:* prn Functional Status Description No Information Available Mental Status Description No Information Available Referrals Refer to Dr Reason for Referral Status Appt Ricardo Harding DO arthritis, canal phyllis nosis and bulging discs that are pressing on nerves that is all worsening from prior study Pt has imaged from MRI from 03/2024 Closed 05/01/2024 [facility] [address] [place] [address], [place] [address] [phone]
--- OUTSIDE RECORDS SUMMARY | 2024-07-29 13:28 | External Medical Summary | Continuity of Care Document ---
Author Name Unknown Organization [facility] Address [address] [place] [address] Phone [phone] Care Team Providers Care Sports Manager Name Role Phone Dermatology-[facility] Dermatology Care Team Informat ion Custom Feed Mill Operator [phone] [facility] Cardiology Care Team Informat ion Custom Feed Mill Operator [phone] Orthopedic Surgery S - [facility] Care Team Information Custom Feed Mill Operator [phone] Aditi Glover D.P.M. Care Team Information Rece iver [phone] Riley Palmer MD Care Team Information Custom Feed Mill Operator [phone] [facility] Office Care Team Information Custom Feed Mill Operator [phone] Ricardo Gomez DO Care Team Information Receive r [phone] [facility] - [facility] Care Team Information Custom Feed Mill Operator [phone] [employer] Customer Support Care Team Information Re ceiver [phone] Problems Active Problems Provider Date Coronary atherosclerosis [...] Morbid obesity David Donnelly MD Onset: 12/12/19 24 Social History Type Date Description Comments Sex Unknown Cigarette Use 04/11/2017 Quit - Age 48 Tobacco Use Start: Unknown End: Unknown Former Cigarette Smoker Smoking Status Reviewed: 05/26/24 Former Cigarette Smoker Tobacco Use Start: Unknown [...] Qnty Indications Order ing Provider Date Sildenafil Bgyutbq21yl Tablets 1 to 5 tablets prior to intercourse as needed 30tabs N52.01 David Donnelly MD 05/18/2021 Metoprolol Succinate ER50mg Tablets ER 24HR Take 1 Tablet Twice A Day 180tabs I25.720 David Donnelly MD 04/11/2021 I10 Trazodone DTR16yi Tablets Take 1 Tablet AT Bedtime 90tabs G47.00 Zhen Bowman MD 12/06/[address] Slow-[address]Table[address] 1 po qd 30tabs E83.42 Unknown 0 Multiple VitaminTablets 30tabs Unknow n Tcghtjc33hb Tablets DR 1 po qd Unknown Ktijhwku121rn Tablets 2 po qd Unknown Alfuzosin HCL ER10mg Tablets ER 24HR Take 1 Tablet Daily 90tabs N41.1 David Donnelly MD Nbluajgivi9hu Tablets take 1 tablet daily 90tabs I10 David Donnelly MD Spcweunsfoei504er Tablets take 1 tablet daily 90tabs N41.1 David Donnelly MD Rosuvastatin Wnwlkry59en Tablets 1 by mouth every day 90tabs E78.2 Zhen Bowman MD [id number] Capsules 1 by mouth every day Unknown Immunizations CPT Code Status Date Vaccine Lot # [id number] Given 06/28/2023 Sarscov2 Vaccin e 50 mcg/0.5 ML For Im Use 12 Yrs And Older [id number] 51847 Given 06/06/2023 Influenza Vaccine High Do se 0.5ML Age 65 & > [id number] 74087 Given 05/29/2022 Influenza Vaccine High Do se 0.5ML Age 65 & > [id number] 64360 Given 12/14/2021 Moderna Covid-1 9 Vaccine 50mcg Booster-EMR Doc Only [id number] 83883 Given 06/27/2021 Moderna Covid-1 9 Vaccine 50mcg Booster-EMR Doc Only 27863 Given 06/15/2021 Influenza Vaccine High Do se 0.5ML Age 65 & > [id number] 77379 Given 05/18/2021 Pneumococcal Vaccine/Pneu movax 23 [id number] 66692 Given 11/16/2020 Moderna Sars-Co v-2 (Cov-19) vacc,100 mcg/ 0.5 mL 12Y+EMR Doc Only [id number] 19699 Given 10/01/2020 Moderna Sars-Co v-2 (Cov-19) vacc,100 mcg/ 0.5 mL 12Y+EMR Doc Only [id number] 32884 Given 06/09/2020 Influenza Vaccine High Do se 0.5ML Age 65 & > [id number] 91679 Given 04/28/2020 Pneumococcal Conjugate-Pr evnar 13 [id number] 71333 Given 06/18/2019 Influenza Virus Vaccine, Quadrivalent, Im Use [id number] 29413 Given 06/14/2018 Influenza Virus Vaccine, Quadrivalent, Im Use [id number] 99719 Given 06/06/2017 Influenza Virus Vaccine, Quadrivalent, Im Use [id number] 83856 Given 06/30/2016 Influenza Virus Vaccine, Quadrivalent, Im Use [id number] 30115 Given 07/26/2015 Zostavax Vaccine 69753 Given 06/15/2015 Influenza Virus Vaccine, Quadrivalent, Im Use [id number] 93268 Given 06/23/2014 Influenza Virus Vaccine, Quadrivalent, Im Use [id number] 34423 Given 06/23/2013 Influenza Vac, Split 6 Mo nths And Older [id number] 40088 Given 03/07/2010 Pneumococcal Vaccine/Pneu movax 23 35791 Given 09/03/2009 Tdap (Tetanus, diphtheria & acel. pertussis) Adacel or Boostrix Vital Signs Date Vital Result Comment 05/26/2024 10:12am BP Systolic 122 mmHg BP Diastolic 64 mmHg Heart Rate 65 /min Respiratory Rate 16 /min Weight 246.00 lb Weight 111.586 kg Height 70 inches 5'10" BMI (Body Mass Index) 35.3 kg/m2 [place] [facility] Weight 166 lb 12/12/2023 10:27am BP Systolic 126 mmHg BP Diastolic 78 mmHg Heart Rate 70 /min Respiratory Rate 16 /min Weight 250.00 lb Weight 113.400 kg Height 70 inches 5'10" BMI (Body Mass Index) 35.9 kg/m2 [place] [facility] Weight 166 lb Results Test Acquired Date Facility Test Result H/L Range N ote Comp. Met 12/05/2023 [facility]. [address] [place] [address] [phone] Glucose 95 mg/dL 70-110 BUN 17 mg/dL 6-25 Creatinine 0.9 mg/dL 0.7-1.3 Sodium 141 mEq/L 135-145 Potassium 4.3 mEq/L 3.5-5.0 Chloride 106 mEq/L 95-107 Co-2 26 mEq/L 24-31 Alk Phos 60 IU/L 43-122 Alt(SGPT) 21 IU/L 10-40 Ast(Sgot) 19 IU/L 3-42 T.Bilirubin 0.6 mg/dL 0.1-1.3 Calcium 9.3 mg/dL 8.5-10.6 Tot.Protein 6.5 g/dL 5.8-8.0 Albumin 4.3 g/dL 3.0-5.2 Globulin 2.2 g/dL 2.0-3.4 GFR 89 ML/MIN/1.73 SQM >60 Lipid 12/05/2023 [facility]. [address] [place] [address] [phone] Cholesterol 127 mg/dL 0-200 1 Triglyceride 106 mg/dL 0-150 2 HDLD 50 mg/dL See Comment 3 Measured LDL 68 mg/dL 0-130 4 Calc VLDL 21.2 mg/dL See Comment 5 Chol/HDL 2.5 RATIO See Comment 6 Non-HDL 77 mg/dL See Comment 7 Laboratory test finding 12/05/2023 [facility]. [address] [place] [address] Magnesium 2.1 mg/dL 1.7-2.8 1 CHOLESTEROL Less than 200mg/dl Low risk [...] LDL Target Procedures Date Code Description Status 05/26/2024 14158 Interpretation Echocardiogra phy, Tranthoracic Completed 05/26/2024 3078F PVRP Diastolic BP <80 mmHg C ompleted 05/26/2024 3074F PVRP Systolic BP <130 mmHg C ompleted 03/24/2024 G2211 Continuation of care e/m vis it add on Completed 12/12/2023 G2211 Continuation of care e/m vis it add on Completed 12/12/2023 3078F PVRP Diastolic BP <80 mmHg C ompleted 12/12/2023 3074F PVRP Systolic BP <130 mmHg C ompleted 12/05/2023 84921 Venipuncture Routine Complet ed 02/13/2023 [id number] Colonoscopy Completed Medical Devices Description No Information Available Encounters Type Date Location Provider Dx Diagnosis Office Visit 05/26/2024 10:00a Raghav Donnelly MD Z01.818 Encounter for o ther preprocedural examination M48.07 Spinal stenosis, lum bosacral region I25.10 Athscl heart disease of [place] coronary artery w/o ang pctrs I10 Essential (primary) hypertension E78.2 Mixed hyperlipidemia E66.01 Morbid (severe) obes ity due to excess calories 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 Z68.35 Body mass index [BMI ] 35.0-35.9, adult Office Visit 03/24/2024 11:00a Raghav Donnelly MD M48.07 Spinal stenosis, lumbosacral region Office Visit 12/12/2023 10:30a Raghav Donnelly MD I25.10 Athscl heart disease of [place] coronary artery w/o ang pctrs I10 Essential (primary) hypertension E78.2 Mixed hyperlipidemia E66.01 Morbid (severe) obes ity due to excess calories N41.1 Chronic prostatitis M48.07 Spinal stenosis, lum bosacral region E83.42 Hypomagnesemia G47.00 Insomnia, unspecifie d 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 Z68.35 Body mass index [BMI ] 35.0-35.9, adult Assessments Date Code Description Provider 05/26/2024 I25.10 Atherosclerotic heart disease of [place] coronary artery without angina pectoris Tomi Mcnair, DO 05/26/2024 I25.10 Atherosclerotic heart disease of [place] coronary artery without angina pectoris David Donnelly MD 05/26/2024 Z01.818 Encounter for other preproce dural examination David Donnelly MD 05/26/2024 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 Tomi Mcnair, DO 05/26/2024 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 David Donnelly MD 05/26/2024 M48.07 Spinal stenosis, lumbosacral region David Donnelly MD 05/26/2024 I25.10 Atherosclerotic heart disease of [place] coronary artery with David Donnelly MD 05/26/2024 I10 Essential (primary) hyperten shannen David Donnelly MD 05/26/2024 E78.2 Mixed hyperlipidemia David child MD 05/26/2024 E66.01 Morbid (severe) obesity due to excess calories David Donnelly MD 05/26/2024 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 David Donnelly MD 05/26/2024 Z68.35 Body mass index [BMI] 35.0-3 5.9, adult David Donnelly MD 05/26/2024 I25.10 Atherosclerotic heart disease of [place] coronary artery without angina pectoris ECHO Raghav 05/26/2024 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 ECHO [facility] [place] 03/24/2024 M48.07 Spinal stenosis, lumbosacral region David Donnelly MD 12/12/2023 I25.10 Atherosclerotic heart disease of [place] coronary artery with David Donnelly MD 12/12/2023 [...] [BMI] 35.0-3 5.9, adult David Donnelly MD 12/05/2023 E78.2 Mixed hyperlipidemia David child MD 12/05/2023 E78.2 Mixed hyperlipidemia Sarah sanchez Nurse 12/05/2023 E83.42 Hypomagnesemia David Donnelly MD 12/05/2023 E83.42 Hypomagnesemia Raghav cordova Plan of Treatment Future Appointment(s):* 06/25/2024 10:00 am - David Donnelly MD at [place] * 06/04/2024 6:30 am - Raghav Nurse at [place] 05/26/2024 - David Donnelly MD* Z01.818 Encounter for other preprocedural examination* Comments:* 1. based on my exam PAT labs, EKG, and echo; pt appears to be at an acceptable risk of proposed procedure 2. f/u post op as sched * M48.07 Spinal stenosis, lumbosacral region * I25.10 Atherosclerotic heart disease of [place] coronary artery with* Comments: * 1. currently asymptomatic 2. cont asa, lisinopril, metoprolol, and rosuvastatin 3. check echo 4. hold lisinopril day of surgery 5. take metoprolol day of surgery 6. f/u post op * I10 Essential (primary) hypertension* Comments:* 1. BP well controlled today 2. cont with metoprolol and lisinopril 3. hold lisinopril dayof surgery 4. take metoprolol day of surgery 5. f/u post op * E78.2 Mixed hyperlipidemia* Comments:* 1. FLP well controlled in December 2. cont rosuvastatin 3. f/u post op * E66.01 Morbid (severe) obesity due to excess calories* Comments:* 1. BMI 37 with comorbidities 2. work on lifestyle modification 3. 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
--- OUTSIDE RECORDS SUMMARY | 2024-07-29 13:28 | External Medical Summary ---
Author Name Unknown Address Unknown Organization [facility]:[address] [place] [address] Laboratory Report Ordering Provider Test Date Status DANIELLA PACHECO 06/04/2024 06:34 Final Observation Date Value Abnormality Reference (Units ) Status Cholesterol 06/04/2024 10:31 113 0-200 (MG/D L) Final CHOLESTEROL
Less than 2 00mg/dl Low risk
201-239 mg/dl Borderline risk
Equal to or greater 240mg/dl High risk Triglyceride 06/04/2024 10:31 82 0-150 (MG/ DL) Final TRIGLYCERIDES
Less than 150mg/dl Normal
150-199mg/dl Borderline
200-499mg/dl High
Greater than 500mg/dl Very High HDL 06/04/2024 10:31 49 SEE COMMENT ( MG/DL) Final HDL
<40mg/dl Elevated R isk
41-59mg/dl Risk
>=60mg/dl Least Risk Cholesterol in LDL [Mass/vol ume] in Serum or Plasma 06/04/2024 10:31 66 0-130 (MG/DL) Final LDL
<100mg/dl Optimal<b r/> 100-129mg/dl Near Optimal
130-159mg/dl Borderline High
160-189mg/dl High
>=190 Very High Cholesterol in VLDL [Mass/vo lume] in Serum or Plasma 06/04/2024 10:31 16.4 SEE COMMENT (MG/DL ) Final VLDL
Less than 30mg/dl Normal HDL 06/04/2024 10:31 2.3 SEE COMMENT ( RATIO) Final CHOL/HDL
<4.0 Optimal<b r/> 4.0-5.0 Borderline
>6.0 High Risk NON-HDL 06/04/2024 10:31 64 SEE COMMENT ( MG/DL) Final NON-HDL
30mg/dl higher than LDL Target Performing Location [facility] [address] [place] [address]
--- OUTSIDE RECORDS SUMMARY | 2024-07-29 13:28 | External Medical Summary | Continuity of Care Document ---
Author Name Unknown Organization [facility] Address [address] [place] [address] Phone [phone] Care Team Providers Care Metal Tube Cutter Name Role Phone Dermatology-[facility] - Dermatology Care Team Informat ion Math And Science Instructor [phone] [facility] Cardiology Care Team Informat ion Math And Science Instructor [phone] Orthopedic Surgery S - [facility] Care Team Information Math And Science Instructor [phone] Aditi Glover D.P.M. Care Team Information Rece iver [phone] Riley Palmer MD Care Team Information Math And Science Instructor [phone] [facility] Office Care Team Information Math And Science Instructor [phone] Ricardo Gomez DO Care Team Information Receive r [phone] [facility] - [facility] Care Team Information Math And Science Instructor [phone] [employer] Support Care Team Information Re ceiver [phone] Problems Active Problems Provider Date Coronary atherosclerosis [...] Qnty Indications Order ing Provider Date Sildenafil Bmrmxwa38us Tablets 1 to 5 tablets prior to intercourse as needed 30tabs N52.01 David Donnelly MD 05/18/2021 Metoprolol Succinate ER50mg Tablets ER 24HR Take 1 Tablet Twice A Day 180tabs I25.720 David Donnelly MD 04/11/2021 I10 Trazodone FHM41qd Tablets Take 1 Tablet AT Bedtime 90tabs G47.00 Zhen Bowman MD 12/06/[address] Slow-MagTable[address] 1 po qd 30tabs E83.42 Unknown 0 Multiple VitaminTablets 30tabs Unknow n Lmlnsbq56ay Tablets DR 1 po qd Unknown Htcvlbav215bn Tablets 2 po qd Unknown Alfuzosin HCL ER10mg Tablets ER 24HR Take 1 Tablet Daily 90tabs N41.1 David Donnelly MD Tvapuvqged8qs Tablets take 1 tablet daily 90tabs I10 David Donnelly MD Yawengivgait868jo Tablets take 1 tablet daily 90tabs N41.1 David Donnelly MD Rosuvastatin Qsruvrd88br Tablets 1 by mouth every day 90tabs E78.2 Zhen Bowman MD [id number]-[id number] Capsules 1 by mouth every day Unknown History Medications Xsiswyhnqqyt536ez Tablets 2 tabs by mouth today then 1 tab daily x 4 days 1Pak R05.9 David Donnelly MD 06/10/2024 - 06/15/2024 Ynqlglnvic01mw Tablets 1 tab once daily x 5 days 5tabs R05.9 David Donnelly MD 06/10/2024 - 06/15/2024 Immunizations CPT Code Status Date Vaccine Lot # [id number] Given 06/25/2024 Influenza Vac, Split, Preservative Free High Dose Age 65 & > [id number] 32677 Given 06/28/2023 Sarscov2 Vaccin e 50 mcg/0.5 ML For Im Use 12 Yrs And Older [id number] 29894 Given 06/06/2023 Influenza Vaccine High Do se 0.5ML Age 65 & > [id number] 74268 Given 05/29/2022 Influenza Vaccine High Do se 0.5ML Age 65 & > [id number] 77527 Given 12/14/2021 Moderna Covid-1 9 Vaccine 50mcg Booster-EMR Doc Only [id number] 61710 Given 06/27/2021 Moderna Covid-1 9 Vaccine 50mcg Booster-EMR Doc Only 96312 Given 06/15/2021 Influenza Vaccine High Do se 0.5ML Age 65 & > [id number] 27988 Given 05/18/2021 Pneumococcal Vaccine/Pneu movax 23 [id number] 25099 Given 11/16/2020 Moderna Sars-Co v-2 (Cov-19) vacc,100 mcg/ 0.5 mL 12Y+EMR Doc Only [id number] 33934 Given 10/01/2020 Moderna Sars-Co v-2 (Cov-19) vacc,100 mcg/ 0.5 mL 12Y+EMR Doc Only [id number] 78932 Given 06/09/2020 Influenza Vaccine High Do se 0.5ML Age 65 & > [id number] 27663 Given 04/28/2020 Pneumococcal Conjugate-Pr evnar 13 [id number] 17052 Given 06/18/2019 Influenza Virus Vaccine, Quadrivalent, Im Use [id number] 41624 Given 06/14/2018 Influenza Virus Vaccine, Quadrivalent, Im Use [id number] 76619 Given 06/06/2017 Influenza Virus Vaccine, Quadrivalent, Im Use [id number] 53501 Given 06/30/2016 Influenza Virus Vaccine, Quadrivalent, Im Use [id number] 11079 Given 07/26/2015 Zostavax Vaccine 86692 Given 06/15/2015 Influenza Virus Vaccine, Quadrivalent, Im Use [id number] 60302 Given 06/23/2014 Influenza Virus Vaccine, Quadrivalent, Im Use [id number] 77267 Given 06/23/2013 Influenza Vac, Split 6 Mo nths And Older [id number] 31579 Given 03/07/2010 Pneumococcal Vaccine/Pneu movax 23 87907 Given 09/03/2009 Tdap (Tetanus, diphtheria & acel. pertussis) Adacel or Boostrix Vital Signs Date Vital Result Comment 06/25/2024 10:02am BP Systolic 128 mmHg BP Diastolic 76 mmHg Heart Rate 64 /min Respiratory Rate 16 /min Weight 246.00 lb Weight 111.586 kg Height 70 inches 5'10" BMI (Body Mass Index) 35.3 kg/m2 [place] Body Weight 166 lb 06/10/2024 7:43am Body Temperature 97.8 F Heart Rate 65 /min Respiratory Rate 16 /min Weight 246.00 lb Weight 111.586 kg Results Test Acquired Date Facility Test Result H/L Range N ote Comp. Met 06/04/2024 [facility]. [address] [place] [address] Glucose 104 mg/dL 70-110 BUN 16 mg/dL [...] GFR 79 ML/MIN/1.73 SQM >60 Lipid 06/04/2024 [facility]. [address] [place] [address] Cholesterol 113 mg/dL 0-200 1 Triglyceride 82 mg/dL 0-150 2 HDLD 49 mg/dL See Comment 3 Measured LDL 66 mg/dL 0-130 4 Calc VLDL 16.4 mg/dL See Comment 5 Chol/HDL 2.3 RATIO See Comment 6 Non-HDL 64 mg/dL See Comment 7 Laboratory test finding 06/04/2024 [facility]. [address] [place] [address] Psa2 1.2 ng/mL 0.0-4.0 1 CHOLESTEROL Less [...] e/m vis it add on Completed 06/04/2024 61546 Venipuncture Routine Complet ed 05/26/2024 27926 Interpretation Echocardiogra phy, Tranthoracic Completed 05/26/2024 3078F PVRP Diastolic BP <80 mmHg C ompleted 05/26/2024 3074F PVRP Systolic BP <130 mmHg C ompleted 03/24/2024 G2211 Continuation of care e/m vis it add on Completed 02/13/2023 [id number] Colonoscopy Completed Medical Devices Description No Information Available Encounters Type Date Location Provider Dx Diagnosis Office Visit 06/25/2024 10:00a Raghav Donnelly MD I25.10 Athscl heart di sease of [place] coronary artery w/o ang pctrs I50.42 Chronic [...] bosacral region I25.10 Athscl heart disease of [place] coronary artery w/o ang pctrs I10 Essential (primary) hypertension E78.2 Mixed hyperlipidemia E66.01 Morbid (severe) obes ity due to excess calories 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 Z68.35 Body mass index [BMI ] 35.0-35.9, adult Office Visit 03/24/2024 11:00a Raghav Donnelly MD M48.07 Spinal stenosis, lumbosacral region Assessments Date Code Description Provider 06/25/2024 I25.10 Atherosclerotic heart disease of [place] coronary artery without angina pectoris David Donnelly [...] Nurse 05/26/2024 I25.10 Atherosclerotic heart disease of [place] coronary artery without angina pectoris Tomi Mcnair DO 05/26/2024 I25.10 Atherosclerotic heart disease of [place] coronary artery without angina pectoris David Donnelly MD 05/26/2024 Z01.818 Encounter for other preproce dural examination David Donnelly MD 05/26/2024 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 Tomi Mcnair, 05/26/2024 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 David Donnelly MD 05/26/2024 M48.07 Spinal stenosis, lumbosacral region David Donnelly MD 05/26/2024 I25.10 Atherosclerotic heart disease of [place] coronary artery with David Donnelly MD 05/26/2024 I10 Essential (primary) hyperten shannen David Donnelly MD 05/26/2024 E78.2 Mixed hyperlipidemia David child MD 05/26/2024 E66.01 Morbid (severe) obesity due to excess calories David Donnelly MD 05/26/2024 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 David Donnelly MD 05/26/2024 Z68.35 Body mass index [BMI] 35.0-3 5.9, adult David Donnelly MD 05/26/2024 I25.10 Atherosclerotic heart disease of [place] coronary artery without angina pectoris ECHO [facility] 05/26/2024 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 ECHO [facility] 03/24/2024 M48.07 Spinal stenosis, lumbosacral region David Donnelly MD Plan of Treatment Future Appointment(s):* 12/16/2024 7:00 am - [facility] * 12/23/2024 8:45 am - David Donnelly MD at [facility] Functional Status Description No Information Available Mental Status Description No Information Available Referrals Refer to Dr Reason for Referral Status Appt Ricardo Harding DO arthritis, canal phyllis nosis and bulging discs that are pressing on nerves that is all worsening from prior study Pt has imaged from MRI from 03/2024 Closed 05/01/2024 [facility] [address] [place] [address], [place] [id number] [phone]
--- OUTSIDE RECORDS SUMMARY | 2024-07-29 13:28 | External Medical Summary | Continuity of Care Document ---
Author Name Unknown Organization [facility] Address [address] [place] [address] Phone [phone] Care Team Providers Care Occupational Psychologist Name Role Phone Dermatology-[facility] - Dermatology Care Team Informat ion Electromechanisms Design Drafter [phone] [facility] Cardiology Care Team Informat ion Electromechanisms Design Drafter [phone] Orthopedic Surgery [facility] - [facility] Care Team Information Electromechanisms Design Drafter [phone] Aditi Glover D.P.M. Care Team Information Rece iver [phone] Riley Palmer MD Care Team Information Electromechanisms Design Drafter [phone] [facility] Office Care Team Information Electromechanisms Design Drafter [phone] Ricardo Gomez DO Care Team Information Receive r [phone] [facility] - [facility] Care Team Information Electromechanisms Design Drafter [phone] [facility] [employer] Care Team Information Re ceiver [phone] Problems Active Problems Provider Date Coronary atherosclerosis [...] Qnty Indications Order ing Provider Date Sildenafil Marbamx65jt Tablets 1 to 5 tablets prior to intercourse as needed 30tabs N52.01 David Donnelly MD 05/18/2021 Metoprolol Succinate ER50mg Tablets ER 24HR Take 1 Tablet Twice A Day 180tabs I25.720 David Donnelly MD 04/11/2021 I10 Trazodone YOJ67hv Tablets Take 1 Tablet AT Bedtime 90tabs G47.00 Zhen Bowman MD 12/06/[address] 1 po qd 30tabs E83.42 Unknown 0 Multiple VitaminTablets 30tabs Unknow n Glwcuxc68jp Tablets DR 1 po qd Unknown Gldqieep192ny Tablets 2 po qd Unknown Alfuzosin HCL ER10mg Tablets ER 24HR Take 1 Tablet Daily 90tabs N41.1 David Donnelly MD Vfpdlnqkcd5wm Tablets take 1 tablet daily 90tabs I10 David Donnelly MD Bjvfvdyjidqz254fc Tablets take 1 tablet daily 90tabs N41.1 David Donnelly MD Rosuvastatin Lmfacjz83gj Tablets 1 by mouth every day 90tabs E78.2 Zhen Bowman MD Coq-21142eq Capsules 1 by mouth every day Unknown History Medications Pwadyzcnbpyk084gd Tablets 2 tabs by mouth today then 1 tab daily x 4 days 1Pak R05.9 David Donnelly MD 06/10/2024 - 06/15/2024 Fzvukluxlo11tu Tablets 1 tab once daily x 5 days 5tabs R05.9 David Donnelly MD 06/10/2024 - 06/15/2024 Immunizations CPT Code Status Date Vaccine Lot # [id number] Given 06/28/2023 Sarscov2 Vaccin e 50 mcg/0.5 ML For Im Use 12 Yrs And Older [id number] 69762 Given 06/06/2023 Influenza Vaccine High Do se 0.5ML Age 65 & > [id number] 75364 Given 05/29/2022 Influenza Vaccine High Do se 0.5ML Age 65 & > 301751 72448 Given 12/14/2021 Moderna Covid-1 9 Vaccine 50mcg Booster-EMR Doc Only [id number] 58234 Given 06/27/2021 Moderna Covid-1 9 Vaccine 50mcg Booster-EMR Doc Only 79300 Given 06/15/2021 Influenza Vaccine High Do se 0.5ML Age 65 & > [id number] 39639 Given 05/18/2021 Pneumococcal Vaccine/Pneu movax 23 [id number] 01656 Given 11/16/2020 Moderna Sars-Co v-2 (Cov-19) vacc,100 mcg/ 0.5 mL 12Y+EMR Doc Only [id number] 17135 Given 10/01/2020 Moderna Sars-Co v-2 (Cov-19) vacc,100 mcg/ 0.5 mL 12Y+EMR Doc Only [id number] 07172 Given 06/09/2020 Influenza Vaccine High Do se 0.5ML Age 65 & > 406622 00370 Given 04/28/2020 Pneumococcal Conjugate-Pr evnar 13 [id number] 70547 Given 06/18/2019 Influenza Virus Vaccine, Quadrivalent, Im Use [id number] 49784 Given 06/14/2018 Influenza Virus Vaccine, Quadrivalent, Im Use [id number] 75212 Given 06/06/2017 Influenza Virus Vaccine, Quadrivalent, Im Use [id number] 68351 Given 06/30/2016 Influenza Virus Vaccine, Quadrivalent, Im Use [id number] 25401 Given 07/26/2015 Zostavax Vaccine 77309 Given 06/15/2015 Influenza Virus Vaccine, Quadrivalent, Im Use [id number] 77411 Given 06/23/2014 Influenza Virus Vaccine, Quadrivalent, Im Use [id number] 71470 Given 06/23/2013 Influenza Vac, Split 6 Mo nths And Older [id number] 38100 Given 03/07/2010 Pneumococcal Vaccine/Pneu movax 23 62736 Given 09/03/2009 Tdap (Tetanus, diphtheria & acel. [...] 5'10" BMI (Body Mass Index) 35.3 kg/m2 [place] Body Weight 166 lb Results Test Acquired Date Facility Test Result H/L Range N ote Comp. Met 06/04/2024 [facility]. [address] [place] [address] Glucose 104 mg/dL 70-110 BUN 16 mg/dL [...] GFR 79 ML/MIN/1.73 SQM >60 Lipid 06/04/2024 [facility]. [address] [place] [address] Cholesterol 113 mg/dL 0-200 1 Triglyceride 82 mg/dL 0-150 2 HDLD 49 mg/dL See Comment 3 Measured LDL 66 mg/dL 0-130 4 Calc VLDL 16.4 mg/dL See Comment 5 Chol/HDL 2.3 RATIO See Comment 6 Non-HDL 64 mg/dL See Comment 7 Laboratory test finding 06/04/2024 [facility]. [address] [place] [address] Psa2 1.2 ng/mL 0.0-4.0 1 CHOLESTEROL Less [...] LDL Target Procedures Date Code Description Status 06/10/2024 G2211 Continuation of care e/m vis it add on Completed 06/04/2024 67213 Venipuncture Routine Complet ed 05/26/2024 87444 Interpretation Echocardiogra phy, Tranthoracic Completed 05/26/2024 3078F PVRP Diastolic BP <80 mmHg C ompleted 05/26/2024 3074F PVRP Systolic BP <130 mmHg C ompleted 03/24/2024 G2211 Continuation of care e/m vis it add on Completed 02/13/2023 [id number] Colonoscopy Completed Medical Devices Description No Information Available Encounters Type Date Location Provider Dx Diagnosis Office Visit 06/10/2024 7:45a Raghav Donnelly MD R05.9 Cough, unspecif ied Office Visit 05/26/2024 10:00a Raghav Donnelly MD Z01.818 Encounter for o ther preprocedural examination M48.07 Spinal stenosis, lum bosacral region I25.10 Athscl heart disease of [place] coronary artery w/o ang pctrs I10 Essential (primary) hypertension E78.2 Mixed hyperlipidemia E66.01 Morbid (severe) obes ity due to excess calories 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 Z68.35 Body mass index [BMI ] 35.0-35.9, adult Office Visit 03/24/2024 11:00a Raghav Donnelly MD M48.07 Spinal stenosis, lumbosacral region Assessments Date Code Description Provider 06/10/2024 R05.9 Cough, unspecified David hanley MD 06/04/2024 E78.2 Mixed hyperlipidemia David child MD 06/04/2024 E78.2 Mixed hyperlipidemia [place] Nurse 06/04/2024 N41.1 Chronic prostatitis David sierra MD 06/04/2024 N41.1 Chronic prostatitis Casandra lle Nurse 05/26/2024 I25.10 Atherosclerotic heart disease of [place] coronary artery without angina pectoris Tomi Mcnair, DO 05/26/2024 I25.10 Atherosclerotic heart disease of [place] coronary artery without angina pectoris David Donnelly MD 05/26/2024 Z01.818 Encounter for other preproce dural examination David Donnelly MD 05/26/2024 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 Tomi Mcnair, DO 05/26/2024 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 David Donnelly MD 05/26/2024 M48.07 Spinal stenosis, lumbosacral region David Donnelly MD 05/26/2024 I25.10 Atherosclerotic heart disease of [place] coronary artery with David Donnelly MD 05/26/2024 I10 Essential (primary) hyperten shannen David Donnelly MD 05/26/2024 E78.2 Mixed hyperlipidemia David child MD 05/26/2024 E66.01 Morbid (severe) obesity due to excess calories David Donnelly MD 05/26/2024 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 David Donnelly MD 05/26/2024 Z68.35 Body mass index [BMI] 35.0-3 5.9, adult David Donnelly MD 05/26/2024 I25.10 Atherosclerotic heart disease of [place] coronary artery without angina pectoris ECHO [facility] 05/26/2024 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
--- OUTSIDE RECORDS SUMMARY | 2024-07-29 13:28 | External Medical Summary | Continuity of Care Document ---
Author Name Unknown Organization [facility] Address [address] [place] [address] Phone [phone] Care Team Providers Care Front Worker Name Role Phone D[facility]atology-[facility] Dermatology Care Team Informat ion Business Performance Advisor [phone] [facility] Cardiology Care Team Informat ion Business Performance Advisor [phone] Orthopedic Surgery S - [facility] Care Team Information Business Performance Advisor [phone] Aditi Glover D.P.M. Care Team Information Rece iver [phone] Riley Palmer MD Care Team Information Business Performance Advisor [phone] [facility] Office Care Team Information Business Performance Advisor [phone] Ricardo Gomez DO Care Team Information Receive r [phone] [facility] - [facility] Care Team Information Business Performance Advisor [phone] [employer] Customer Support Care Team Information Re ceiver [phone] Problems Active Problems Provider Date Coronary atherosclerosis [...] SIG Qnty Indications Order ing Provider Date Bxgmsgefharv748ea Tablets 2 tabs by mouth today then 1 tab daily x 4 days 1Pak R05.9 David Donnelly MD 06/10/2024 - 06/15/2024 Oehshyplrr13rx Tablets 1 tab once daily x 5 days 5tabs R05.9 David Donnelly MD 06/10/2024 - 06/15/2024 Sildenafil Lksndob02sg Tablets 1 to 5 tablets prior to intercourse as needed 30tabs N52.01 David Donnelly MD 05/18/2021 Metoprolol Succinate ER50mg Tablets ER 24HR Take 1 Tablet Twice A Day 180tabs I25.720 David Donnelly MD 04/11/2021 I10 Trazodone SZN77ud Tablets Take 1 Tablet AT Bedtime 90tabs G47.00 Zhen Bowman MD 12/06/[address] Slow-MagTablets [address] 1 po qd 30tabs E83.42 Unknown 0 Multiple VitaminTablets 30tabs Unknow n Dwcdsvq54qb Tablets DR 1 po qd Unknown Sthlcthz725bw Tablets 2 po qd Unknown Alfuzosin HCL ER10mg Tablets ER 24HR Take 1 Tablet Daily 90tabs N41.1 David Donnelly MD Tttpesltli9kn Tablets take 1 tablet daily 90tabs I10 David Donnelly MD Vygfhqeljhrj109bt Tablets take 1 tablet daily 90tabs N41.1 David Donnelly MD Rosuvastatin Vackxws12oc Tablets 1 by mouth every day 90tabs E78.2 Zhen Bowman MD Coq-44636ko Capsules 1 by mouth every day Unknown Immunizations CPT Code Status Date Vaccine Lot # [id number] Given 06/28/2023 Sarscov2 Vaccin e 50 mcg/0.5 ML For Im Use 12 Yrs And Older [id number] 31036 Given 06/06/2023 Influenza Vaccine High Do se 0.5ML Age 65 & > [id number] 01295 Given 05/29/2022 Influenza Vaccine High Do se 0.5ML Age 65 & > 014317 01110 Given 12/14/2021 Moderna Covid-1 9 Vaccine 50mcg Booster-EMR Doc Only [id number] 09092 Given 06/27/2021 Moderna Covid-1 9 Vaccine 50mcg Booster-EMR Doc Only 90728 Given 06/15/2021 Influenza Vaccine High Do se 0.5ML Age 65 & > 279206 75571 Given 05/18/2021 Pneumococcal Vaccine/Pneu movax 23 [id number] 42554 Given 11/16/2020 Moderna Sars-Co v-2 (Cov-19) vacc,100 mcg/ 0.5 mL 12Y+EMR Doc Only [id number] 45301 Given 10/01/2020 Moderna Sars-Co v-2 (Cov-19) vacc,100 mcg/ 0.5 mL 12Y+EMR Doc Only [id number] 26056 Given 06/09/2020 Influenza Vaccine High Do se 0.5ML Age 65 & > 232331 53976 Given 04/28/2020 Pneumococcal Conjugate-Pr evnar 13 [id number] 98007 Given 06/18/2019 Influenza Virus Vaccine, Quadrivalent, Im Use [id number] 28647 Given 06/14/2018 Influenza Virus Vaccine, Quadrivalent, Im Use [id number] 45007 Given 06/06/2017 Influenza Virus Vaccine, Quadrivalent, Im Use [id number] 21124 Given 06/30/2016 Influenza Virus Vaccine, Quadrivalent, Im Use [id number] 05496 Given 07/26/2015 Zostavax Vaccine 46099 Given 06/15/2015 Influenza Virus Vaccine, Quadrivalent, Im Use [id number] 24776 Given 06/23/2014 Influenza Virus Vaccine, Quadrivalent, Im Use [id number] 05653 Given 06/23/2013 Influenza Vac, Split 6 Mo nths And Older [id number] 32212 Given 03/07/2010 Pneumococcal Vaccine/Pneu movax 23 89975 Given 09/03/2009 Tdap (Tetanus, diphtheria & acel. [...] 5'10" BMI (Body Mass Index) 35.3 kg/m2 [place] Body Weight 166 lb Results Test Acquired Date Facility Test Result H/L Range N ote Comp. Met 06/04/2024 [facility]. [address] [place] [address] Glucose 104 mg/dL 70-110 BUN 16 mg/dL [...] GFR 79 ML/MIN/1.73 SQM >60 Lipid 06/04/2024 [facility]. [address] [place] [address] Cholesterol 113 mg/dL 0-200 1 Triglyceride 82 mg/dL 0-150 2 HDLD 49 mg/dL See Comment 3 Measured LDL 66 mg/dL 0-130 4 Calc VLDL 16.4 mg/dL See Comment 5 Chol/HDL 2.3 RATIO See Comment 6 Non-HDL 64 mg/dL See Comment 7 Laboratory test finding 06/04/2024 [facility]. [address] [place] [address] [phone] Psa2 1.2 ng/mL 0.0-4.0 1 CHOLESTEROL [...] Target Procedures Date Code Description Status 06/04/2024 44699 Venipuncture Routine Complet ed 05/26/2024 12436 Interpretation Echocardiogra phy, Tranthoracic Completed 05/26/2024 3078F [...] Systolic BP <130 mmHg C ompleted 02/13/2023 [id number] Colonoscopy Completed Medical Devices Description No Information Available Encounters Type Date Location Provider Dx Diagnosis Office Visit 06/10/2024 7:45a Raghav Donnelly MD R05.9 Cough, unspecif ied Office Visit 05/26/2024 10:00a Raghav Donnelly MD Z01.818 Encounter for o ther preprocedural examination M48.07 Spinal stenosis, lum bosacral region I25.10 Athscl heart disease of [place] coronary artery w/o ang pctrs I10 Essential (primary) hypertension E78.2 Mixed hyperlipidemia E66.01 Morbid (severe) obes ity due to excess calories 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 Z68.35 Body mass index [BMI ] 35.0-35.9, adult Office Visit 03/24/2024 11:00a Raghav Donnelly MD M48.07 Spinal stenosis, lumbosacral region Office Visit 12/12/2023 10:30a Raghav Donnelly MD I25.10 Athscl heart disease of [place] coronary artery w/o ang pctrs I10 Essential [...] Nurse 05/26/2024 I25.10 Atherosclerotic heart disease of [place] coronary artery without angina pectoris Tomi Mcnair, DO 05/26/2024 I25.10 Atherosclerotic heart disease of [place] coronary artery without angina pectoris David Donnelly MD 05/26/2024 Z01.818 Encounter for other preproce dural examination David Donnelly MD 05/26/2024 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 Tomi Mcnair, DO 05/26/2024 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 David Donnelly MD 05/26/2024 M48.07 Spinal stenosis, lumbosacral region David Donnelly MD 05/26/2024 I25.10 Atherosclerotic heart disease of [place] coronary artery with David Donnelly MD 05/26/2024 I10 Essential (primary) hyperten shannen Donnelly MD 05/26/2024 E78.2 Mixed hyperlipidemia David child MD 05/26/2024 E66.01 Morbid (severe) obesity due to excess calories David Donnelly MD 05/26/2024 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 David Donnelly MD 05/26/2024 Z68.35 Body mass index [BMI] 35.0-3 5.9, adult David Donnelly MD 05/26/2024 I25.10 Atherosclerotic heart disease of [place] coronary artery without angina pectoris ECHO [facility] 05/26/2024 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
--- OUTSIDE RECORDS SUMMARY | 2024-07-29 13:28 | External Medical Summary | Continuity of Care Document ---
Author Name Unknown Organization [facility] Address [address] [place] [address] Phone [phone] Care Team Providers Care Qa Software Tester Name Role Phone Dermatology-[facility] - Dermatology Care Team Informat ion Tinning Equipment Tender [phone] [facility] Cardiology Care Team Informat ion Tinning Equipment Tender [phone] Orthopedic Surgery S - [facility] Care Team Information Tinning Equipment Tender [phone] Aditi Glover D.P.M. Care Team Information Rece iver [phone] Riley Palmer MD Care Team Information Tinning Equipment Tender [phone] [facility] Office Care Team Information Tinning Equipment Tender [phone] Ricardo Gomez DO Care Team Information Receive r [phone] [facility] - [facility] Care Team Information Tinning Equipment Tender [phone] [employer] Customer Support Care Team Information Re ceiver [phone] Problems Active Problems Provider Date Coronary atherosclerosis [...] SIG Qnty Indications Order ing Provider Date Guntsfkbsrxl957dy Tablets 2 tabs by mouth today then 1 tab daily x 4 days 1Pak R05.9 David Donnelly MD 06/10/2024 - 06/15/2024 Rbrgfwmlji86la Tablets 1 tab once daily x 5 days 5tabs R05.9 David Donenlly MD 06/10/2024 - 06/15/2024 Sildenafil Hjxahox95qs Tablets 1 to 5 tablets prior to intercourse as needed 30tabs N52.01 David Donnelly MD 05/18/2021 Metoprolol Succinate ER50mg Tablets ER 24HR Take 1 Tablet Twice A Day 180tabs I25.720 David Donnelly MD 04/11/2021 I10 Trazodone WTD35sj Tablets Take 1 Tablet AT Bedtime 90tabs G47.00 Zhen Bowman MD 12/06/[address] Slow-MagTable[address] 1 po qd 30tabs E83.42 Unknown 0 Multiple VitaminTablets 30tabs Unknow n Afwizrl57tr Tablets DR 1 po qd Unknown Mfqyibvp802sj Tablets 2 po qd Unknown Alfuzosin HCL ER10mg Tablets ER 24HR Take 1 Tablet Daily 90tabs N41.1 David Donnelly MD Awypvfugbn3oz Tablets take 1 tablet daily 90tabs I10 David Donnelly MD Ybfwdzatzbpf928ta Tablets take 1 tablet daily 90tabs N41.1 David Donnelly MD Rosuvastatin Bdwsvlu72wg Tablets 1 by mouth every day 90tabs E78.2 Zhen Bowman MD Coq-02754ko Capsules 1 by mouth every day Unknown Immunizations CPT Code Status Date Vaccine Lot # [id number] Given 06/28/2023 Sarscov2 Vaccin e 50 mcg/0.5 ML For Im Use 12 Yrs And Older [id number] 57785 Given 06/06/2023 Influenza Vaccine High Do se 0.5ML Age 65 & > [id number] 80340 Given 05/29/2022 Influenza Vaccine High Do se 0.5ML Age 65 & > 028706 28827 Given 12/14/2021 Moderna Covid-1 9 Vaccine 50mcg Booster-EMR Doc Only [id number] 74965 Given 06/27/2021 Moderna Covid-1 9 Vaccine 50mcg Booster-EMR Doc Only 08260 Given 06/15/2021 Influenza Vaccine High Do se 0.5ML Age 65 & > 492336 43172 Given 05/18/2021 Pneumococcal Vaccine/Pneu movax 23 [id number] 43118 Given 11/16/2020 Moderna Sars-Co v-2 (Cov-19) vacc,100 mcg/ 0.5 mL 12Y+EMR Doc Only [id number] 26879 Given 10/01/2020 Moderna Sars-Co v-2 (Cov-19) vacc,100 mcg/ 0.5 mL 12Y+EMR Doc Only [id number] 42317 Given 06/09/2020 Influenza Vaccine High Do se 0.5ML Age 65 & > 249009 11034 Given 04/28/2020 Pneumococcal Conjugate-Pr evnar 13 [id number] 53956 Given 06/18/2019 Influenza Virus Vaccine, Quadrivalent, Im Use [id number] 06365 Given 06/14/2018 Influenza Virus Vaccine, Quadrivalent, Im Use [id number] 72999 Given 06/06/2017 Influenza Virus Vaccine, Quadrivalent, Im Use [id number] 46559 Given 06/30/2016 Influenza Virus Vaccine, Quadrivalent, Im Use [id number] 94042 Given 07/26/2015 Zostavax Vaccine 83449 Given 06/15/2015 Influenza Virus Vaccine, Quadrivalent, Im Use [id number] 59741 Given 06/23/2014 Influenza Virus Vaccine, Quadrivalent, Im Use [id number] 65020 Given 06/23/2013 Influenza Vac, Split 6 Mo nths And Older [id number] 54419 Given 03/07/2010 Pneumococcal Vaccine/Pneu movax 23 21634 Given 09/03/2009 Tdap (Tetanus, diphtheria & acel. [...] 5'10" BMI (Body Mass Index) 35.3 kg/m2 [place] Body Weight 166 lb Results Test Acquired Date Facility Test Result H/L Range N ote Comp. Met 06/04/2024 [facility] [address] [place] [address] Glucose 104 mg/dL 70-110 BUN 16 mg/dL [...] GFR 79 ML/MIN/1.73 SQM >60 Lipid 06/04/2024 [facility] [address] [place] [address] Cholesterol 113 mg/dL 0-200 1 Triglyceride 82 mg/dL 0-150 2 HDLD 49 mg/dL See Comment 3 Measured LDL 66 mg/dL 0-130 4 Calc VLDL 16.4 mg/dL See Comment 5 Chol/HDL 2.3 RATIO See Comment 6 Non-HDL 64 mg/dL See Comment 7 Laboratory test finding 06/04/2024 [facility] [address] [place] [address] Psa2 1.2 ng/mL 0.0-4.0 1 CHOLESTEROL Less [...] Target Procedures Date Code Description Status 06/04/2024 92070 Venipuncture Routine Complet ed 05/26/2024 52804 Interpretation Echocardiogra phy, Tranthoracic Completed 05/26/2024 3078F [...] Systolic BP <130 mmHg C ompleted 02/13/2023 44618040 Colonoscopy Completed Medical Devices Description No Information Available Encounters Type Date Location Provider Dx Diagnosis Office Visit 06/10/2024 7:45a Raghav Donnelly MD R05.9 Cough, unspecif ied Office Visit 05/26/2024 10:00a Raghav Donnelly MD Z01.818 Encounter for o ther preprocedural examination M48.07 Spinal stenosis, lum bosacral region I25.10 Athscl heart disease of [place] coronary artery w/o ang pctrs I10 Essential (primary) hypertension E78.2 Mixed hyperlipidemia E66.01 Morbid (severe) obes ity due to excess calories 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 Z68.35 Body mass index [BMI ] 35.0-35.9, adult Office Visit 03/24/2024 11:00a Raghav Donnelly MD M48.07 Spinal stenosis, lumbosacral region Office Visit 12/12/2023 10:30a Raghav Donnelly MD I25.10 Athscl heart disease of [place] coronary artery w/o ang pctrs I10 Essential [...] Nurse 05/26/2024 I25.10 Atherosclerotic heart disease of [place] coronary artery without angina pectoris Tomi Mcnair, DO 05/26/2024 I25.10 Atherosclerotic heart disease of [place] coronary artery without angina pectoris David Donnelly MD 05/26/2024 Z01.818 Encounter for other preproce dural examination David Donnelly MD 05/26/2024 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 Tomi Mcnair, DO 05/26/2024 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 David Donnelly MD 05/26/2024 M48.07 Spinal stenosis, lumbosacral region David Donnelly MD 05/26/2024 I25.10 Atherosclerotic heart disease of [place] coronary artery with David Donnelly MD 05/26/2024 I10 Essential (primary) hyperten shannen David Donnelly MD 05/26/2024 E78.2 Mixed hyperlipidemia David child MD 05/26/2024 E66.01 Morbid (severe) obesity due to excess calories David Donnelly MD 05/26/2024 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 David Donnelly MD 05/26/2024 Z68.35 Body mass index [BMI] 35.0-3 5.9, adult David Donnelly MD 05/26/2024 I25.10 Atherosclerotic heart disease of [place] coronary artery without angina pectoris ECHO [facility] 05/26/2024 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
--- OUTSIDE RECORDS SUMMARY | 2024-07-29 13:28 | External Medical Summary | Continuity of Care Document ---
Author Name Unknown Organization [facility] Address [address] [place] [address] Phone [phone] Care Team Providers Care Whipped Topping Finisher Name Role Phone Dermatology-[facility] Dermatology Care Team Informat ion Manager Investment [phone] [facility] Cardiology Care Team Informat ion Manager Investment [phone] Orthopedic Surgery S - [facility] Care Team Information Manager Investment [phone] Aditi Glover D.P.M. Care Team Information Rece iver [phone] Riley Palmer MD Care Team Information Manager Investment [phone] [facility] Office Care Team Information Manager Investment [phone] Ricardo Gomez DO Care Team Information Receive r [phone] [facility] - [facility] Care Team Information Manager Investment [phone] [employer] Customer Support Care Team Information Re ceiver [phone] Problems Active Problems Provider Date Coronary atherosclerosis [...] Qnty Indications Order ing Provider Date Sildenafil Fkyyymw82qj Tablets 1 to 5 tablets prior to intercourse as needed 30tabs N52.01 David Donnelly MD 05/18/2021 Metoprolol Succinate ER50mg Tablets ER 24HR Take 1 Tablet Twice A Day 180tabs I25.720 David Donnelly MD 04/11/2021 I10 Trazodone IBO69ua Tablets Take 1 Tablet AT Bedtime 90tabs G47.00 Zhen Bowman MD 12/06/[address] 1 po qd 30tabs E83.42 Unknown 0 Multiple VitaminTablets 30tabs Unknow n Sqmgvdx33qv Tablets DR 1 po qd Unknown Scmblddt670am Tablets 2 po qd Unknown Alfuzosin HCL ER10mg Tablets ER 24HR Take 1 Tablet Daily 90tabs N41.1 David Donnelly MD Lrtsbjewsr0kj Tablets take 1 tablet daily 90tabs I10 David Donnelly MD Fsixarmijadu221kh Tablets take 1 tablet daily 90tabs N41.1 David Donnelly MD Rosuvastatin Jlredgi85zq Tablets 1 by mouth every day 90tabs E78.2 Zhen Bowman MD Coq-25967jv Capsules 1 by mouth every day Unknown Immunizations CPT Code Status Date Vaccine Lot # [id number] Given 06/28/2023 Sarscov2 Vaccin e 50 mcg/0.5 ML For Im Use 12 Yrs And Older [id number] 41690 Given 06/06/2023 Influenza Vaccine High Do se 0.5ML Age 65 & > [id number] 33380 Given 05/29/2022 Influenza Vaccine High Do se 0.5ML Age 65 & > 001011 68311 Given 12/14/2021 Moderna Covid-1 9 Vaccine 50mcg Booster-EMR Doc Only [id number] 77257 Given 06/27/2021 Moderna Covid-1 9 Vaccine 50mcg Booster-EMR Doc Only 04392 Given 06/15/2021 Influenza Vaccine High Do se 0.5ML Age 65 & > [id number] 92015 Given 05/18/2021 Pneumococcal Vaccine/Pneu movax 23 [id number] 91127 Given 11/16/2020 Moderna Sars-Co v-2 (Cov-19) vacc,100 mcg/ 0.5 mL 12Y+EMR Doc Only [id number] 68642 Given 10/01/2020 Moderna Sars-Co v-2 (Cov-19) vacc,100 mcg/ 0.5 mL 12Y+EMR Doc Only [id number] 77636 Given 06/09/2020 Influenza Vaccine High Do se 0.5ML Age 65 & > 110238 09759 Given 04/28/2020 Pneumococcal Conjugate-Pr evnar 13 [id number] 61163 Given 06/18/2019 Influenza Virus Vaccine, Quadrivalent, Im Use [id number] 63098 Given 06/14/2018 Influenza Virus Vaccine, Quadrivalent, Im Use [id number] 27931 Given 06/06/2017 Influenza Virus Vaccine, Quadrivalent, Im Use [id number] 34507 Given 06/30/2016 Influenza Virus Vaccine, Quadrivalent, Im Use [id number] 22572 Given 07/26/2015 Zostavax Vaccine 91775 Given 06/15/2015 Influenza Virus Vaccine, Quadrivalent, Im Use [id number] 27422 Given 06/23/2014 Influenza Virus Vaccine, Quadrivalent, Im Use [id number] 27441 Given 06/23/2013 Influenza Vac, Split 6 Mo nths And Older [id number] 77609 Given 03/07/2010 Pneumococcal Vaccine/Pneu movax 23 18202 Given 09/03/2009 Tdap (Tetanus, diphtheria & acel. pertussis) Adacel or Boostrix Vital Signs Date Vital Result Comment 05/26/2024 10:12am BP Systolic 122 mmHg BP Diastolic 64 mmHg Heart Rate 65 /min Respiratory Rate 16 /min Weight 246.00 lb Weight 111.586 kg Height 70 inches 5'10" BMI (Body Mass Index) 35.3 kg/m2 [place] Body Weight 166 lb 12/12/2023 10:27am BP Systolic 126 mmHg BP Diastolic 78 mmHg Heart Rate 70 /min Respiratory Rate 16 /min Weight 250.00 lb Weight 113.400 kg Height 70 inches 5'10" BMI (Body Mass Index) 35.9 kg/m2 [place] Body Weight 166 lb Results Test Acquired Date Facility Test Result H/L Range N ote Laboratory test finding 06/04/2024 [facility] [address] [place], [place] [id number] Psa2 <pending> Comp. Met 12/05/2023 [facility] [address] [place], [place] [address] [phone] Glucose 95 mg/dL 70-110 BUN 17 [...] GFR 89 ML/MIN/1.73 SQM >60 Lipid 12/05/2023 [facility] [address] [place], [place] [address] Cholesterol 127 mg/dL 0-200 1 Triglyceride 106 mg/dL 0-150 2 HDLD 50 mg/dL See Comment 3 Measured LDL 68 mg/dL 0-130 4 Calc VLDL 21.2 mg/dL See Comment 5 Chol/HDL 2.5 RATIO See Comment 6 Non-HDL 77 mg/dL See Comment 7 Laboratory test finding 12/05/2023 [facility] [address] [place], [place] [address] [phone] Magnesium 2.1 mg/dL 1.7-2.8 1 CHOLESTEROL Less [...] Target Procedures Date Code Description Status 06/04/2024 33339 Venipuncture Routine Complet ed 05/26/2024 45415 Interpretation Echocardiogra phy, Tranthoracic Completed 05/26/2024 3078F [...] Systolic BP <130 mmHg C ompleted 12/05/2023 09638 Venipuncture Routine Complet ed 02/13/2023 [id number] Colonoscopy Completed Medical Devices Description No Information Available Encounters Type Date Location Provider Dx Diagnosis Office Visit 05/26/2024 10:00a Raghav Donnelly MD Z01.818 Encounter for o ther preprocedural examination M48.07 Spinal stenosis, lum bosacral region I25.10 Athscl heart disease of [place] coronary artery w/o ang pctrs I10 Essential (primary) hypertension E78.2 Mixed hyperlipidemia E66.01 Morbid (severe) obes ity due to excess calories 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 Z68.35 Body mass index [BMI ] 35.0-35.9, adult Office Visit 03/24/2024 11:00a Raghav Donnelly MD M48.07 Spinal stenosis, lumbosacral region Office Visit 12/12/2023 10:30a Raghav Donnelly MD I25.10 Athscl heart disease of [place] coronary artery w/o ang pctrs I10 Essential (primary) hypertension E78.2 Mixed hyperlipidemia E66.01 Morbid (severe) obes ity due to excess calories N41.1 Chronic prostatitis M48.07 Spinal stenosis, lum bosacral region E83.42 Hypomagnesemia G47.00 Insomnia, unspecifie d 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 David Donnelly MD 05/26/2024 M48.07 Spinal stenosis, lumbosacral region David Donnelly MD 05/26/2024 I25.10 Atherosclerotic heart disease of [place] coronary artery with David Donnelly MD 05/26/2024 I10 Essential (primary) hyperten shannen David Donnelly MD 05/26/2024 E78.2 Mixed hyperlipidemia David child MD 05/26/2024 E66.01 Morbid (severe) obesity due to excess calories David Donnelly MD 05/26/2024 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 David Donnelly MD 05/26/2024 Z68.35 Body mass index [BMI] 35.0-3 5.9, adult David Donnelly MD 05/26/2024 I25.10 Atherosclerotic heart disease of [place] coronary artery without angina pectoris ECHO [facility] 05/26/2024 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 ECHO [facility] 03/24/2024 M48.07 Spinal stenosis, lumbosacral region David Donnelly MD 12/12/2023 I25.10 Atherosclerotic heart disease of [place] coronary artery with David Donnelly MD 12/12/2023 [...] child MD 12/05/2023 E78.2 Mixed hyperlipidemia Sarah ille Nurse 12/05/2023 E83.42 Hypomagnesemia David Donnelly MD 12/05/2023 E83.42 Hypomagnesemia Raghav cordova Plan of Treatment Future Appointment(s):* 06/25/2024 10:00 am - David Donnelly MD at [place] 05/26/2024 - David Donnelly MD* Z01.818 Encounter for other preprocedural examination* Comments:* 1. based on my exam PAT labs, EKG, and echo; pt appears to be at an acceptable risk of proposed procedure 2. f/u post op as sched * M48.07 Spinal stenosis, lumbosacral region * I25.10 Atherosclerotic heart disease of [place] coronary artery with* Comments: * 1. currently [...] imaged from MRI from 03/2024 Closed 05/01/2024 [facility] [address] [place] [address], [place] [id number] [phone]
--- OUTSIDE RECORDS SUMMARY | 2024-07-29 13:28 | External Medical Summary | Continuity of Care Document ---
Author Name Unknown Organization [facility] Address [address] [place] [address] Phone [phone] Care Team Providers Care House Registry Rn Name Role Phone Dermatology-[facility] Dermatology Care Team Informat ion Tutoring Manager [phone] [facility] Cardiology Care Team Informat ion Tutoring Manager [phone] Orthopedic Surgery S - [facility] Care Team Information Tutoring Manager [phone] Aditi Glover D.P.M. Care Team Information Rece iver [phone] Riley Palmer MD Care Team Information Tutoring Manager [phone] [facility] Care Team Information Tutoring Manager [phone] Ricardo Gomez DO Care Team Information Receive r [phone] [facility] - [facility] Care Team Information Tutoring Manager [phone] [employer] Customer Support Care Team Information Re ceiver [phone] Problems Active Problems Provider Date Coronary atherosclerosis [...] Qnty Indications Order ing Provider Date Sildenafil Ktjofag62rw Tablets 1 to 5 tablets prior to intercourse as needed 30tabs N52.01 David Donnelly MD 05/18/2021 Metoprolol Succinate ER50mg Tablets ER 24HR Take 1 Tablet Twice A Day 180tabs I25.720 David Donnelly MD 04/11/2021 I10 Trazodone NWO59oo Tablets Take 1 Tablet AT Bedtime 90tabs G47.00 Zhen Bowman MD 12/06/[address] Slow-MagTablets [address] 1 po qd 30tabs E83.42 Unknown 0 Multiple VitaminTablets 30tabs Unknow n Vkhqgui52mq Tablets DR 1 po qd Unknown Weojotds834tt Tablets 2 po qd Unknown Alfuzosin HCL ER10mg Tablets ER 24HR Take 1 Tablet Daily 90tabs N41.1 David Donnelly MD Wwcaohckcc9vw Tablets take 1 tablet daily 90tabs I10 David Donnelly MD Hnkoexxhajsr708sf Tablets take 1 tablet daily 90tabs N41.1 David Donnelly MD Rosuvastatin Qidsqwl62ke Tablets 1 by mouth every day 90tabs E78.2 Zhen Bowman MD Coq-43898qc Capsules 1 by mouth every day Unknown Immunizations CPT Code Status Date Vaccine Lot # [id number] Given 06/28/2023 Sarscov2 Vaccin e 50 mcg/0.5 ML For Im Use 12 Yrs And Older [id number] 68963 Given 06/06/2023 Influenza Vaccine High Do se 0.5ML Age 65 & > [id number] 11939 Given 05/29/2022 Influenza Vaccine High Do se 0.5ML Age 65 & > [id number] 32551 Given 12/14/2021 Moderna Covid-1 9 Vaccine 50mcg Booster-EMR Doc Only [id number] 86463 Given 06/27/2021 Moderna Covid-1 9 Vaccine 50mcg Booster-EMR Doc Only 31989 Given 06/15/2021 Influenza Vaccine High Do se 0.5ML Age 65 & > 240674 33640 Given 05/18/2021 Pneumococcal Vaccine/Pneu movax 23 [id number] 35299 Given 11/16/2020 Moderna Sars-Co v-2 (Cov-19) vacc,100 mcg/ 0.5 mL 12Y+EMR Doc Only [id number] 04164 Given 10/01/2020 Moderna Sars-Co v-2 (Cov-19) vacc,100 mcg/ 0.5 mL 12Y+EMR Doc Only [id number] 18274 Given 06/09/2020 Influenza Vaccine High Do se 0.5ML Age 65 & > [id number] 02002 Given 04/28/2020 Pneumococcal Conjugate-Pr evnar 13 [id number] 85075 Given 06/18/2019 Influenza Virus Vaccine, Quadrivalent, Im Use [id number] 55878 Given 06/14/2018 Influenza Virus Vaccine, Quadrivalent, Im Use [id number] 01321 Given 06/06/2017 Influenza Virus Vaccine, Quadrivalent, Im Use [id number] 18167 Given 06/30/2016 Influenza Virus Vaccine, Quadrivalent, Im Use [id number] 13625 Given 07/26/2015 Zostavax Vaccine 99086 Given 06/15/2015 Influenza Virus Vaccine, Quadrivalent, Im Use [id number] 08675 Given 06/23/2014 Influenza Virus Vaccine, Quadrivalent, Im Use [id number] 51138 Given 06/23/2013 Influenza Vac, Split 6 Mo nths And Older [id number] 10110 Given 03/07/2010 Pneumococcal Vaccine/Pneu movax 23 28098 Given 09/03/2009 Tdap (Tetanus, diphtheria & acel. pertussis) Adacel or Boostrix Vital Signs Date Vital Result Comment 05/26/2024 10:12am BP Systolic 122 mmHg BP Diastolic 64 mmHg Heart Rate 65 /min Respiratory Rate 16 /min Weight 246.00 lb Weight 111.586 kg Height 70 inches 5'10" BMI (Body Mass Index) 35.3 kg/m2 [place] Body Weight 166 lb 12/12/2023 10:27am BP Systolic 126 mmHg BP Diastolic 78 mmHg Heart Rate 70 /min Respiratory Rate 16 /min Weight 250.00 lb Weight 113.400 kg Height 70 inches 5'10" BMI (Body Mass Index) 35.9 kg/m2 [place] Body Weight 166 lb Results Test Acquired Date Facility Test Result H/L Range N ote Comp. Met 06/04/2024 [facility] [address] [place] [address] [phone] Glucose 104 mg/dL 70-110 BUN 16 [...] GFR 79 ML/MIN/1.73 SQM >60 Lipid 06/04/2024 [facility]. [address] [place] [address] Cholesterol 113 mg/dL 0-200 1 Triglyceride 82 mg/dL 0-150 2 HDLD 49 mg/dL See Comment 3 Measured LDL 66 mg/dL 0-130 4 Calc VLDL 16.4 mg/dL See Comment 5 Chol/HDL 2.3 RATIO See Comment 6 Non-HDL 64 mg/dL See Comment 7 Laboratory test finding 06/04/2024 [facility]. [address] [place] [address] Psa2 1.2 ng/mL 0.0-4.0 1 CHOLESTEROL Less [...] Target Procedures Date Code Description Status 06/04/2024 19480 Venipuncture Routine Complet ed 05/26/2024 42063 Interpretation Echocardiogra phy, Tranthoracic Completed 05/26/2024 3078F [...] Systolic BP <130 mmHg C ompleted 02/13/2023 [id number] Colonoscopy Completed Medical Devices Description No Information Available Encounters Type Date Location Provider Dx Diagnosis Office Visit 05/26/2024 10:00a Raghav Donnelly MD Z01.818 Encounter for o ther preprocedural examination M48.07 Spinal stenosis, lum bosacral region I25.10 Athscl heart disease of [place] coronary artery w/o ang pctrs I10 Essential (primary) hypertension E78.2 Mixed hyperlipidemia E66.01 Morbid (severe) obes ity due to excess calories 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 Z68.35 Body mass index [BMI ] 35.0-35.9, adult Office Visit 03/24/2024 11:00a Raghav Donnelly MD M48.07 Spinal stenosis, lumbosacral region Office Visit 12/12/2023 10:30a Raghav Donnelly MD I25.10 Athscl heart disease of [place] coronary artery w/o ang pctrs I10 Essential [...] Nurse 05/26/2024 I25.10 Atherosclerotic heart disease of [place] coronary artery without angina pectoris Tomi Mcnair, DO 05/26/2024 I25.10 Atherosclerotic heart disease of [place] coronary artery without angina pectoris David Donnelly MD 05/26/2024 Z01.818 Encounter for other preproce dural examination David Donnelly MD 05/26/2024 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 Tomi Mcnair, DO 05/26/2024 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 David Donnelly MD 05/26/2024 M48.07 Spinal stenosis, lumbosacral region David Donnelly MD 05/26/2024 I25.10 Atherosclerotic heart disease of [place] coronary artery with David Donnelly MD 05/26/2024 I10 Essential (primary) hyperten shannen David Donnelly MD 05/26/2024 E78.2 Mixed hyperlipidemia David child MD 05/26/2024 E66.01 Morbid (severe) obesity due to excess calories David Donnelly MD 05/26/2024 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 David Donnelly MD 05/26/2024 Z68.35 Body mass index [BMI] 35.0-3 5.9, adult David Donnelly MD 05/26/2024 I25.10 Atherosclerotic heart disease of [place] coronary artery without angina pectoris ECHO [facility] 05/26/2024 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 based on my exam PAT labs, EKG, and echo; pt appears to be at an acceptable risk of proposed procedure 2. f/u post op as sched * M48.07 Spinal stenosis, lumbosacral region * I25.10 Atherosclerotic heart disease of [place] coronary artery with* Comments: * 1. currently [...] imaged from MRI from 03/2024 Closed 05/01/2024 [facility] [address] [place] [address], [place] [id number] [phone]
--- OUTSIDE RECORDS SUMMARY | 2024-07-29 13:28 | External Medical Summary ---
Author Name Unknown Address Unknown Organization [facility]:[address] [place] [address] Laboratory Report Ordering Provider Test Date Status DANIELLA PACHECO 06/04/2024 06:34 Final Observation Date Value Abnormality Reference (Units ) Status Glucose 06/04/2024 10:31 104 70-110 (MG/DL ) Final BUN 06/04/2024 10:31 16 6-25 (MG/DL) Final Creatinine 06/04/2024 10:31 1.0 0.7-1.3 (MG/ DL) Final Sodium 06/04/2024 10:31 141 135-145 (MEQ/ L) Final Potassium 06/04/2024 10:31 4.3 3.5-5.0 (MEQ/ L) Final Cl 06/04/2024 10:31 105 95-107 (MEQ/L ) Final CO2 06/04/2024 10:31 25 24-31 (MEQ/L) Final Alk Phos 06/04/2024 10:31 58 43-122 (IU/L) Final ALT (Alanine aminotransferase) 06/04/2024 10:31 20 10-40 (IU/L) Final AST (Aspartate aminotransferase) 06/04/2024 10:31 20 3-42 (IU/L) Final Bilirubin, Total 06/04/2024 10:31 0.6 0.1-1. 3 (MG/DL) Final Calcium 06/04/2024 10:31 8.9 8.5-10.6 (MG/ DL) Final Protein 06/04/2024 10:31 6.4 5.8-8.0 (G/DL ) Final Albumin 06/04/2024 10:31 4.3 3.0-5.2 (G/DL ) Final GLOBULIN 06/04/2024 10:31 2.1 2.0-3.4 (G/DL ) Final GFR (estimated) 06/04/2024 10:31 79 >60 (ML /MIN/1.73 SQM) Final Performing Location [facility] [address] [place] [address]
--- OUTSIDE RECORDS SUMMARY | 2024-07-29 13:28 | External Medical Summary ---
Author Name Unknown Address Unknown Organization K1C:[facility] [address] [place] [address] Laboratory Report Ordering Provider Test Date Status DANIELLA PACHECO 06/04/2024 06:34 Final TUMOR MARKER TESTING
PATIENT RESULTS DETERMINED BY ASSAYS USING DIFFERENT METHODS OR MANUFACTURES
MAY NOT BE COMPARABLE. Observation Date Value Abnormality Reference (Units ) Status PSA 06/04/2024 10:30 1.2 0.0-4.0 (ng/m L) Final Performing Location [facility] [address] [place] [id number]
--- OUTSIDE RECORDS SUMMARY | 2024-07-29 13:28 | External Medical Summary | Continuity of Care Document ---
Author Name Unknown Organization [facility] Address [address] [place] [address] Phone [phone] Care Team Providers Care Wireless Operator Name Role Phone Dermatology-[facility] - Dermatology Care Team Informat ion Grinding Wheel Dresser [phone] Cardiology Care Team Informat ion Grinding Wheel Dresser [phone] Orthopedic Surgery S - [facility] Care Team Information Grinding Wheel Dresser [phone] Aditi Glover D.P.M. Care Team Information Rece iver [phone] Riley Palmer MD Care Team Information Grinding Wheel Dresser [phone] [facility] Office Care Team Information Grinding Wheel Dresser [phone] Ricardo Gomez DO Care Team Information Receive r [phone] [facility] - [facility] Care Team Information Grinding Wheel Dresser [phone] [place] Customer Support Care Team Information Re ceiver [phone] Problems Active Problems Provider Date Coronary atherosclerosis [...] Qnty Indications Order ing Provider Date Sildenafil Wysfdie20mm Tablets 1 to 5 tablets prior to intercourse as needed 30tabs N52.01 David Donnelly MD 05/18/2021 Metoprolol Succinate ER50mg Tablets ER 24HR Take 1 Tablet Twice A Day 180tabs I25.720 David Donnelly MD 04/11/2021 I10 Trazodone CBA71er Tablets Take 1 Tablet AT Bedtime 90tabs G47.00 Zhen Bowman MD 12/06/[address] 1 po qd 30tabs E83.42 Unknown 0 Multiple VitaminTablets 30tabs Unknow n Lmlkfor80tu Tablets DR 1 po qd Unknown Jkgbeuqi463qz Tablets 2 po qd Unknown Alfuzosin HCL ER10mg Tablets ER 24HR Take 1 Tablet Daily 90tabs N41.1 David Donnelly MD Dhwpbapaeb4wq Tablets take 1 tablet daily 90tabs I10 David Donnelly MD Kldxhcesqudu759pn Tablets take 1 tablet daily 90tabs N41.1 David Donnelly MD Rosuvastatin Gzscets33nf Tablets 1 by mouth every day 90tabs E78.2 Zhen Bowman MD Coq-21327tq Capsules 1 by mouth every day Unknown History Medications Lzobqlbvodks737ou Tablets 2 tabs by mouth today then 1 tab daily x 4 days 1Pak R05.9 David Donnelly MD 06/10/2024 - 06/15/2024 Whtxgszkjt58tk Tablets 1 tab once daily x 5 days 5tabs R05.9 David Donnelly MD 06/10/2024 - 06/15/2024 Immunizations CPT Code Status Date Vaccine Lot # [id number] Given 06/25/2024 Influenza Vac, Split, Preservative Free High Dose Age 65 & > [id number] 56352 Given 06/28/2023 Sarscov2 Vaccin e 50 mcg/0.5 ML For Im Use 12 Yrs And Older [id number] 61239 Given 06/06/2023 Influenza Vaccine High Do se 0.5ML Age 65 & > [id number] 96043 Given 05/29/2022 Influenza Vaccine High Do se 0.5ML Age 65 & > [id number] 83661 Given 12/14/2021 Moderna Covid-1 9 Vaccine 50mcg Booster-EMR Doc Only [id number] 30995 Given 06/27/2021 Moderna Covid-1 9 Vaccine 50mcg Booster-EMR Doc Only 92180 Given 06/15/2021 Influenza Vaccine High Do se 0.5ML Age 65 & > [id number] 17243 Given 05/18/2021 Pneumococcal Vaccine/Pneu movax 23 [id number] 52218 Given 11/16/2020 Moderna Sars-Co v-2 (Cov-19) vacc,100 mcg/ 0.5 mL 12Y+EMR Doc Only [id number] 59389 Given 10/01/2020 Moderna Sars-Co v-2 (Cov-19) vacc,100 mcg/ 0.5 mL 12Y+EMR Doc Only [id number] 88770 Given 06/09/2020 Influenza Vaccine High Do se 0.5ML Age 65 & > [id number] 78979 Given 04/28/2020 Pneumococcal Conjugate-Pr evnar 13 [id number] 89438 Given 06/18/2019 Influenza Virus Vaccine, Quadrivalent, Im Use [id number] 78022 Given 06/14/2018 Influenza Virus Vaccine, Quadrivalent, Im Use [id number] 03233 Given 06/06/2017 Influenza Virus Vaccine, Quadrivalent, Im Use [id number] 68001 Given 06/30/2016 Influenza Virus Vaccine, Quadrivalent, Im Use [id number] 72715 Given 07/26/2015 Zostavax Vaccine 26488 Given 06/15/2015 Influenza Virus Vaccine, Quadrivalent, Im Use [id number] 58567 Given 06/23/2014 Influenza Virus Vaccine, Quadrivalent, Im Use [id number] 83665 Given 06/23/2013 Influenza Vac, Split 6 Mo nths And Older [id number] 50088 Given 03/07/2010 Pneumococcal Vaccine/Pneu movax 23 44247 Given 09/03/2009 Tdap (Tetanus, diphtheria & acel. pertussis) Adacel or Boostrix Vital Signs Date Vital Result Comment 06/25/2024 10:02am BP Systolic 128 mmHg BP Diastolic 76 mmHg Heart Rate 64 /min Respiratory Rate 16 /min Weight 246.00 lb Weight 111.586 kg Height 70 inches 5'10" BMI (Body Mass Index) 35.3 kg/m2 [place] Body Weight 166 lb 06/10/2024 7:43am Body Temperature 97.8 F Heart Rate 65 /min Respiratory Rate 16 /min Weight 246.00 lb Weight 111.586 kg Results Test Acquired Date Facility Test Result H/L Range N ote Comp. Met 06/04/2024 [facility] [address] [place] [address] Glucose 104 mg/dL 70-110 BUN 16 mg/dL [...] GFR 79 ML/MIN/1.73 SQM >60 Lipid 06/04/2024 [facility] [address] [place] [address] Cholesterol 113 mg/dL 0-200 1 Triglyceride 82 mg/dL 0-150 2 HDLD 49 mg/dL See Comment 3 Measured LDL 66 mg/dL 0-130 4 Calc VLDL 16.4 mg/dL See Comment 5 Chol/HDL 2.3 RATIO See Comment 6 Non-HDL 64 mg/dL See Comment 7 Laboratory test finding 06/04/2024 [facility] [address] [place] [address] Psa2 1.2 ng/mL 0.0-4.0 1 CHOLESTEROL Less [...] e/m vis it add on Completed 06/04/2024 77640 Venipuncture Routine Complet ed 05/26/2024 15952 Interpretation Echocardiogra phy, Tranthoracic Completed 05/26/2024 3078F PVRP Diastolic BP <80 mmHg C ompleted 05/26/2024 3074F PVRP Systolic BP <130 mmHg C ompleted 03/24/2024 G2211 Continuation of care e/m vis it add on Completed 02/13/2023 [id number] Colonoscopy Completed Medical Devices Description No Information Available Encounters Type Date Location Provider Dx Diagnosis Office Visit 06/25/2024 10:00a Raghav Donnelly MD I25.10 Athscl heart di sease of [place] coronary artery w/o ang pctrs I50.42 Chronic [...] bosacral region I25.10 Athscl heart disease of [place] coronary artery w/o ang pctrs I10 Essential (primary) hypertension E78.2 Mixed hyperlipidemia E66.01 Morbid (severe) obes ity due to excess calories 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 Z68.35 Body mass index [BMI ] 35.0-35.9, adult Office Visit 03/24/2024 11:00a Raghav Donnelly MD M48.07 Spinal stenosis, lumbosacral region Assessments Date Code Description Provider 06/25/2024 I25.10 Atherosclerotic heart disease of [place] coronary artery without angina pectoris David Donnelly [...] adult medical examination without abnormal findings David Donnlely MD 06/25/2024 Z68.35 Body mass index [BMI] 35.0-3 5.9, adult David Donnelly MD 06/10/2024 R05.9 Cough, unspecified David hanley MD 06/04/2024 E78.2 Mixed hyperlipidemia David child MD 06/04/2024 E78.2 Mixed hyperlipidemia [place] Nurse 06/04/2024 N41.1 Chronic prostatitis David sierra MD 06/04/2024 N41.1 Chronic prostatitis Casandra lle Nurse 05/26/2024 I25.10 Atherosclerotic heart disease of [place] coronary artery without angina pectoris Tomi Mcnair DO 05/26/2024 I25.10 Atherosclerotic heart disease of [place] coronary artery without angina pectoris David Donnelly MD 05/26/2024 Z01.818 Encounter for other preproce dural examination David Donnelly MD 05/26/2024 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 Tomi Mcnair, 05/26/2024 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 David Donnelly MD 05/26/2024 M48.07 Spinal stenosis, lumbosacral region David Donnelly MD 05/26/2024 I25.10 Atherosclerotic heart disease of [place] coronary artery with David Donnelly MD 05/26/2024 I10 Essential (primary) hyperten shannen David Donnelly MD 05/26/2024 E78.2 Mixed hyperlipidemia David child MD 05/26/2024 E66.01 Morbid (severe) obesity due to excess calories David Donnelly MD 05/26/2024 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 David Donnelly MD 05/26/2024 Z68.35 Body mass index [BMI] 35.0-3 5.9, adult David Donnelly MD 05/26/2024 I25.10 Atherosclerotic heart disease of [place] coronary artery without angina pectoris ECHO [facility] 05/26/2024 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 ECHO [facility] 03/24/2024 M48.07 Spinal stenosis, lumbosacral region David Donnelly MD Plan of Treatment Future Appointment(s):* 12/16/2024 7:00 am - [facility] * 12/23/2024 8:45 am - [facility]ly MD at [facility] Functional Status Description No Information Available Mental Status Description No Information Available Referrals Refer to Dr Reason for Referral Status Appt Ricardo Harding DO arthritis, 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
--- OUTSIDE RECORDS SUMMARY | 2024-07-29 13:29 | External Medical Summary | Continuity of Care Document ---
Author Name Unknown Organization [facility] Address [address] [place] [address] Phone [phone] Care Team Providers Care Serology Technician Name Role Phone Dermatology-[facility] Dermatology Care Team Informat ion Travel Coordinator [phone] [facility] Cardiology Care Team Informat ion Travel Coordinator [phone] Orthopedic Surgery S - [facility] Care Team Information Travel Coordinator [phone] Aditi Glover D.P.M. Care Team Information Rece iver [phone] Riley Palmer MD Care Team Information Travel Coordinator [phone] [facility] Office Care Team Information Travel Coordinator [phone] Ricardo Gomez DO Care Team Information Receive r [phone] [facility] - [facility] Care Team Information Travel Coordinator [phone] [employer] Customer Support Care Team Information Re ceiver [phone] Problems Active Problems Provider Date Coronary atherosclerosis [...] Qnty Indications Order ing Provider Date Sildenafil Bkpttbu37oy Tablets 1 to 5 tablets prior to intercourse as needed 30tabs N52.01 David Donnelly MD 05/18/2021 Metoprolol Succinate ER50mg Tablets ER 24HR Take 1 Tablet Twice A Day I25.720 David Donnelly MD 04/11/2021 I10 Trazodone IYU24ed Tablets Take 1 Tablet AT Bedtime 90tabs G47.00 Zhen Bowman MD 12/06/[address] Slow-MagTablets [address] 1 po qd 30tabs E83.42 Unknown 0 Multiple VitaminTablets 30tabs Unknow n Ofcvznj63zs Tablets DR 1 po qd Unknown Fzclytub363dt Tablets 2 po qd Unknown Alfuzosin HCL ER10mg Tablets ER 24HR Take 1 Tablet Daily 90tabs N41.1 David Donnelly MD Rwcdbrkzip6bu Tablets take 1 tablet daily 90tabs I10 David Donnelly MD Qyvbwrlvbwbh371zh Tablets take 1 tablet daily 90tabs N41.1 David Donnelly MD Rosuvastatin Svoqipe58it Tablets 1 by mouth every day 90tabs E78.2 Zhen Bowman MD Coq-43198cw Capsules 1 by mouth every day Unknown Immunizations CPT Code Status Date Vaccine Lot # [id number] Given 06/28/2023 Sarscov2 Vaccin e 50 mcg/0.5 ML For Im Use 12 Yrs And Older [id number] 32069 Given 06/06/2023 Influenza Vaccine High Do se 0.5ML Age 65 & > [id number] 42564 Given 05/29/2022 Influenza Vaccine High Do se 0.5ML Age 65 & > [id number] 81554 Given 12/14/2021 Moderna Covid-1 9 Vaccine 50mcg Booster-EMR Doc Only [id number] 44545 Given 06/27/2021 Moderna Covid-1 9 Vaccine 50mcg Booster-EMR Doc Only 80575 Given 06/15/2021 Influenza Vaccine High Do se 0.5ML Age 65 & > [id number] 33433 Given 05/18/2021 Pneumococcal Vaccine/Pneu movax 23 [id number] 23956 Given 11/16/2020 Moderna Sars-Co v-2 (Cov-19) vacc,100 mcg/ 0.5 mL 12Y+EMR Doc Only [id number] 11169 Given 10/01/2020 Moderna Sars-Co v-2 (Cov-19) vacc,100 mcg/ 0.5 mL 12Y+EMR Doc Only [id number] 09362 Given 06/09/2020 Influenza Vaccine High Do se 0.5ML Age 65 & > [id number] 85021 Given 04/28/2020 Pneumococcal Conjugate-Pr evnar 13 [id number] 11538 Given 06/18/2019 Influenza Virus Vaccine, Quadrivalent, Im Use [id number] 38674 Given 06/14/2018 Influenza Virus Vaccine, Quadrivalent, Im Use [id number] 83483 Given 06/06/2017 Influenza Virus Vaccine, Quadrivalent, Im Use [id number] 67268 Given 06/30/2016 Influenza Virus Vaccine, Quadrivalent, Im Use [id number] 13804 Given 07/26/2015 Zostavax Vaccine 47624 Given 06/15/2015 Influenza Virus Vaccine, Quadrivalent, Im Use [id number] 80761 Given 06/23/2014 Influenza Virus Vaccine, Quadrivalent, Im Use [id number] 68558 Given 06/23/2013 Influenza Vac, Split 6 Mo nths And Older [id number] 69774 Given 03/07/2010 Pneumococcal Vaccine/Pneu movax 23 02024 Given 09/03/2009 Tdap (Tetanus, diphtheria & acel. pertussis) Adacel or Boostrix Vital Signs Date Vital Result Comment 05/26/2024 10:12am BP Systolic 122 mmHg BP Diastolic 64 mmHg Heart Rate 65 /min Respiratory Rate 16 /min Weight 246.00 lb Weight 111.586 kg Height 70 inches 5'10" BMI (Body Mass Index) 35.3 kg/m2 [place] [facility] Weight 166 lb 12/12/2023 10:27am BP Systolic 126 mmHg BP Diastolic 78 mmHg Heart Rate 70 /min Respiratory Rate 16 /min Weight 250.00 lb Weight 113.400 kg Height 70 inches 5'10" BMI (Body Mass Index) 35.9 kg/m2 [place] [facility] Weight 166 lb Results Test Acquired Date Facility Test Result H/L Range N ote Comp. Met 12/05/2023 [facility]. [address] [place] [address] Glucose 95 mg/dL 70-110 BUN 17 mg/dL [...] GFR 89 ML/MIN/1.73 SQM >60 Lipid 12/05/2023 [facility] [address] [place] [address] Cholesterol 127 mg/dL 0-200 1 Triglyceride 106 mg/dL 0-150 2 HDLD 50 mg/dL See Comment 3 Measured LDL 68 mg/dL 0-130 4 Calc VLDL 21.2 mg/dL See Comment 5 Chol/HDL 2.5 RATIO See Comment 6 Non-HDL 77 mg/dL See Comment 7 Laboratory test finding 12/05/2023 [facility] [address] [place] [address] Magnesium 2.1 mg/dL 1.7-2.8 1 CHOLESTEROL Less [...] Target Procedures Date Code Description Status 05/26/2024 36085 Interpretation Echocardiogra phy, Tranthoracic Completed 05/26/2024 3078F [...] Systolic BP <130 mmHg C ompleted 12/05/2023 99253 Venipuncture Routine Complet ed 02/13/2023 [id number] Colonoscopy Completed Medical Devices Description No Information Available Encounters Type Date Location Provider Dx Diagnosis Office Visit 05/26/2024 10:00a Raghav Donnelly MD Z01.818 Encounter for o ther preprocedural examination M48.07 Spinal stenosis, lum bosacral region I25.10 Athscl heart disease of [place] coronary artery w/o ang pctrs I10 Essential (primary) hypertension E78.2 Mixed hyperlipidemia E66.01 Morbid (severe) obes ity due to excess calories 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 Z68.35 Body mass index [BMI ] 35.0-35.9, adult Office Visit 03/24/2024 11:00a Raghav Donnelly MD M48.07 Spinal stenosis, lumbosacral region Office Visit 12/12/2023 10:30a Raghav Donnelly MD I25.10 Athscl heart disease of [place] coronary artery w/o ang pctrs I10 Essential (primary) hypertension E78.2 Mixed hyperlipidemia E66.01 Morbid (severe) obes ity due to excess calories N41.1 Chronic prostatitis M48.07 Spinal stenosis, lum bosacral region E83.42 Hypomagnesemia G47.00 Insomnia, unspecifie d 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 Z68.35 Body mass index [BMI ] 35.0-35.9, adult Assessments Date Code Description Provider 05/26/2024 Z01.818 Encounter for other preproce dural examination David Donnelly MD 05/26/2024 M48.07 Spinal stenosis, lumbosacral region David Donnelly MD 05/26/2024 I25.10 Atherosclerotic heart disease of [place] coronary artery with David Donnelly MD 05/26/2024 I10 Essential (primary) hyperten shannen Donnelly MD 05/26/2024 E78.2 Mixed hyperlipidemia David child MD 05/26/2024 E66.01 Morbid (severe) obesity due to excess calories David Donnelly MD 05/26/2024 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 03/24/2024 M48.07 Spinal stenosis, lumbosacral region David Donnelly MD 12/12/2023 I25.10 Atherosclerotic heart disease of [place] coronary artery with David Donnelly MD 12/12/2023 I10 Essential (primary) hyperten shannen Donnelly MD 12/12/2023 E78.2 Mixed hyperlipidemia David child MD 12/12/2023 E66.01 Morbid (severe) obesity due to excess calories David Donnelly MD 12/12/2023 N41.1 Chronic prostatitis David sierra MD 12/12/2023 M48.07 Spinal stenosis, lumbosacral region David Donnelyl MD 12/12/2023 E83.42 Hypomagnesemia David Donnelly MD 12/12/2023 G47.00 Insomnia, unspecified David Donnelly MD 12/12/2023 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 David Donnelly MD 12/12/2023 Z68.35 Body mass index [BMI] 35.0-3 5.9, adult David oDnnelly MD 12/05/2023 E78.2 Mixed hyperlipidemia David child MD 12/05/2023 E78.2 Mixed hyperlipidemia Sarah sanchez Nurse 12/05/2023 E83.42 Hypomagnesemia David Donnelly MD 12/05/2023 E83.42 Hypomagnesemia Raghav cordova Plan of Treatment Future Appointment(s):* 06/25/2024 10:00 am - David Donnelly MD at [place] * 06/04/2024 6:30 am - [place] [facility] [place] 05/26/2024 - David Donnelly MD* Z01.818 Encounter for other preprocedural examination * M48.07 Spinal stenosis, lumbosacral region * I25.10 Atherosclerotic heart disease of [place] coronary artery with* Comments: * 1. currently [...] imaged from MRI from 03/2024 Closed 05/01/2024 [facility] [address] [place] [address], [place] [id number] [phone]
--- OUTSIDE RECORDS SUMMARY | 2024-07-29 13:29 | External Medical Summary | Continuity of Care Document ---
Author Name Unknown Organization [facility] Address [address] [place] [address] Phone [phone] Care Team Providers Care Yacht Captain Name Role Phone Dermatology-[facility] Dermatology Care Team Informat ion Export Administrator [phone] [facility] Cardiology Care Team Informat ion Export Administrator [phone] Orthopedic Surgery S - [facility] Care Team Information Export Administrator [phone] Aditi Glover D.P.M. Care Team Information Rece iver [phone] Riley Palmer MD Care Team Information Export Administrator [phone] [facility] Office Care Team Information Export Administrator [phone] Ricardo Gomez DO Care Team Information Receive r [phone] [facility] - [facility] Care Team Information Export Administrator [phone] [employer] Customer Support Care Team Information Re ceiver [phone] Problems Active Problems Provider Date Coronary atherosclerosis [...] Qnty Indications Order ing Provider Date Sildenafil Msacscl14wj Tablets 1 to 5 tablets prior to intercourse as needed 30tabs N52.01 David Donnelly MD 05/18/2021 Metoprolol Succinate ER50mg Tablets ER 24HR Take 1 Tablet Twice A Day I25.720 David Donnelly MD 04/11/2021 I10 Trazodone BHZ25nq Tablets Take 1 Tablet AT Bedtime 90tabs G47.00 Zhen Bowman MD 12/06/[address] 1 po qd 30tabs E83.42 Unknown 0 Multiple VitaminTablets 30tabs Unknow n Iuelyfi52oa Tablets DR 1 po qd Unknown Gcbbcaoy839ax Tablets 2 po qd Unknown Alfuzosin HCL ER10mg Tablets ER 24HR Take 1 Tablet Daily 90tabs N41.1 David Donnelly MD Fndffshzty7jk Tablets take 1 tablet daily 90tabs I10 David Donnelly MD Xpddodamytrd650bj Tablets take 1 tablet daily 90tabs N41.1 David Donnelly MD Rosuvastatin Itdudbk43nc Tablets 1 by mouth every day 90tabs E78.2 Zhen Bowman MD [id number]-43424le Capsules 1 by mouth every day Unknown Immunizations CPT Code Status Date Vaccine Lot # 14763 Given 06/28/2023 Sarscov2 Vaccin e 50 mcg/0.5 ML For Im Use 12 Yrs And Older [id number] 39023 Given 06/06/2023 Influenza Vaccine High Do se 0.5ML Age 65 & > [id number] 15993 Given 05/29/2022 Influenza Vaccine High Do se 0.5ML Age 65 & > [id number] 53642 Given 12/14/2021 Moderna Covid-1 9 Vaccine 50mcg Booster-EMR Doc Only [id number] 54544 Given 06/27/2021 Moderna Covid-1 9 Vaccine 50mcg Booster-EMR Doc Only 54967 Given 06/15/2021 Influenza Vaccine High Do se 0.5ML Age 65 & > [id number] 93175 Given 05/18/2021 Pneumococcal Vaccine/Pneu movax 23 [id number] 12866 Given 11/16/2020 Moderna Sars-Co v-2 (Cov-19) vacc,100 mcg/ 0.5 mL 12Y+EMR Doc Only [id number] 58044 Given 10/01/2020 Moderna Sars-Co v-2 (Cov-19) vacc,100 mcg/ 0.5 mL 12Y+EMR Doc Only [id number] 72936 Given 06/09/2020 Influenza Vaccine High Do se 0.5ML Age 65 & > 482502 55660 Given 04/28/2020 Pneumococcal Conjugate-Pr evnar 13 [id number] 12158 Given 06/18/2019 Influenza Virus Vaccine, Quadrivalent, Im Use [id number] 74878 Given 06/14/2018 Influenza Virus Vaccine, Quadrivalent, Im Use [id number] 99562 Given 06/06/2017 Influenza Virus Vaccine, Quadrivalent, Im Use [id number] 38138 Given 06/30/2016 Influenza Virus Vaccine, Quadrivalent, Im Use [id number] 25137 Given 07/26/2015 Zostavax Vaccine 88096 Given 06/15/2015 Influenza Virus Vaccine, Quadrivalent, Im Use [id number] 13397 Given 06/23/2014 Influenza Virus Vaccine, Quadrivalent, Im Use [id number] 80643 Given 06/23/2013 Influenza Vac, Split 6 Mo nths And Older [id number] 28634 Given 03/07/2010 Pneumococcal Vaccine/Pneu movax 23 66527 Given 09/03/2009 Tdap (Tetanus, diphtheria & acel. pertussis) Adacel or Boostrix Vital Signs Date Vital Result Comment 05/26/2024 10:12am BP Systolic 122 mmHg BP Diastolic 64 mmHg Heart Rate 65 /min Respiratory Rate 16 /min Weight 246.00 lb Weight 111.586 kg Height 70 inches 5'10" BMI (Body Mass Index) 35.3 kg/m2 [place] Body Weight 166 lb 12/12/2023 10:27am BP Systolic 126 mmHg BP Diastolic 78 mmHg Heart Rate 70 /min Respiratory Rate 16 /min Weight 250.00 lb Weight 113.400 kg Height 70 inches 5'10" BMI (Body Mass Index) 35.9 kg/m2 [place] Body Weight 166 lb Results Test Acquired Date Facility Test Result H/L Range Note Xray 05/26/2024 [facility] US [address] [place] [address] ( )- - US Echocardiogram Transthoracic W Doppler And Color Flow <pending> Comp. Met 12/05/2023 [facility]. [address] [place] [address] [phone] Glucose 95 mg/dL 70-110 BUN 17 mg/dL 6-25 Creatinine 0.9 mg/dL 0.7-1.3 Sodium 141 mEq/L 135-145 Potassium 4.3 mEq/L 3.5-5.0 Chloride 106 mEq/L 95-107 Co-2 26 mEq/L 24-31 Alk Phos 60 IU/L 43-122 Alt(SGPT) 21 IU/L 10-40 Ast(Sgot) 19 IU/L 3-42 T.Bilirubin 0.6 mg/dL 0.1-1.3 Calcium 9.3 mg/dL 8.5-10.6 Tot.Protein 6.5 g/dL 5.8-8.0 Albumin 4.3 g/dL 3.0-5.2 Globulin 2.2 g/dL 2.0-3.4 GFR 89 ML/MIN/1.7 3SQM >60 Lipid 12/05/2023 [facility]. [address] [place] [address] [phone] Cholesterol 127 mg/dL 0-200 1 Triglyceride 106 mg/dL 0-150 2 HDLD 50 mg/dL See Comment 3 Measured LDL 68 mg/dL 0-130 4 Calc VLDL 21.2 mg/dL See Comment 5 Chol/HDL 2.5 RATIO See Comment 6 Non-HDL 77 mg/dL See Comment 7 Laboratory test finding 12/05/2023 [facility]. [address] [place], [place] [id number] Magnesium 2.1 mg/dL 1.7-2.8 1 CHOLESTEROL Less [...] Target Procedures Date Code Description Status 05/26/2024 36445 Interpretation Echocardiogra phy, Tranthoracic Completed 05/26/2024 3078F [...] Systolic BP <130 mmHg C ompleted 12/05/2023 00612 Venipuncture Routine Complet ed 02/13/2023 [id number] Colonoscopy Completed Medical Devices Description No Information Available Encounters Type Date Location Provider Dx Diagnosis Office Visit 05/26/2024 10:00a Raghav Donnelly MD Z01.818 Encounter for o ther preprocedural examination M48.07 Spinal stenosis, lum bosacral region I25.10 Athscl heart disease 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 I10 Essential (primary) hypertension E78.2 Mixed hyperlipidemia E66.01 Morbid (severe) obes ity due to excess calories 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 Z68.35 Body mass index [BMI ] 35.0-35.9, adult Office Visit 03/24/2024 11:00a Raghav Donnelly MD M48.07 Spinal stenosis, lumbosacral region Office Visit 12/12/2023 10:30a Raghav Donnelly MD I25.10 Athscl heart disease 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 I10 Essential [...] MD 05/26/2024 I25.10 Atherosclerotic heart disease of [place] coronary artery with David Donnelly MD 05/26/2024 I10 Essential (primary) hyperten shannen Donnelly MD 05/26/2024 E78.2 Mixed hyperlipidemia David child MD 05/26/2024 E66.01 Morbid (severe) obesity due to excess calories David Donnelly MD 05/26/2024 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 David Donnelly MD 05/26/2024 Z68.35 Body mass index [BMI] 35.0-3 5.9, adult David Donnelly MD 05/26/2024 I25.10 Atherosclerotic heart disease of [place] coronary artery without angina pectoris ECHO [facility] 05/26/2024 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 currently [...] imaged from MRI from 03/2024 Closed 05/01/2024 [facility] [address] [facility] [place] [address] [phone]
--- OUTSIDE RECORDS SUMMARY | 2024-07-29 13:29 | External Medical Summary | Continuity of Care Document ---
Author Name Unknown Organization [facility] Address [address] [place] [address] Phone [phone] Care Team Providers Care Bullet Swaging Machine Adjuster Name Role Phone Dermatology-[facility] - Dermatology Care Team Informat ion Clinical Cytopathologist [phone] [facility] Cardiology Care Team Informat ion Clinical Cytopathologist [phone] Orthopedic Surgery S - [facility] Care Team Information Clinical Cytopathologist [phone] Aditi Glover D.P.M. Care Team Information Rece iver [phone] Riley Palmer MD Care Team Information Clinical Cytopathologist [phone] [facility] [facility] Office Care Team Information Clinical Cytopathologist [phone] Ricardo Gomez DO Care Team Information Receive r [phone] [facility] - [facility] Care Team Information Clinical Cytopathologist [phone] [place] Customer Support Care Team Information Re ceiver [phone] Problems Active Problems Provider Date Coronary atherosclerosis [...] Qnty Indications Order ing Provider Date Sildenafil Bjxxayl18gd Tablets 1 to 5 tablets prior to intercourse as needed 30tabs N52.01 David Donnelly MD 05/18/2021 Metoprolol Succinate ER50mg Tablets ER 24HR Take 1 Tablet Twice A Day I25.720 David Donnelly MD 04/11/2021 I10 Trazodone NRZ38zu Tablets Take 1 Tablet AT Bedtime 90tabs G47.00 Zhen Bowman MD 12/06/[address] Slow-MagTablets [address] 1 po qd 30tabs E83.42 Unknown 0 Multiple VitaminTablets 30tabs Unknow n Xhwtfrr67mm Tablets DR 1 po qd Unknown Woxzfyde189so Tablets 2 po qd Unknown Alfuzosin HCL ER10mg Tablets ER 24HR Take 1 Tablet Daily 90tabs N41.1 David Donnelly MD Ftweornyew5rh Tablets take 1 tablet daily 90tabs I10 David Donnelly MD Ckbgsgahwihv509hy Tablets take 1 tablet daily 90tabs N41.1 David Donnelly MD Rosuvastatin Glgdoyz93nm Tablets 1 by mouth every day 90tabs E78.2 hZen Bowman MD [id number]-68335ba Capsules 1 by mouth every day Unknown Immunizations CPT Code Status Date Vaccine Lot # 20529 Given 06/28/2023 Sarscov2 Vaccin e 50 mcg/0.5 ML For Im Use 12 Yrs And Older [id number] 68812 Given 06/06/2023 Influenza Vaccine High Do se 0.5ML Age 65 & > [id number] 90545 Given 05/29/2022 Influenza Vaccine High Do se 0.5ML Age 65 & > 015521 15012 Given 12/14/2021 Moderna Covid-1 9 Vaccine 50mcg Booster-EMR Doc Only [id number] 81860 Given 06/27/2021 Moderna Covid-1 9 Vaccine 50mcg Booster-EMR Doc Only 60375 Given 06/15/2021 Influenza Vaccine High Do se 0.5ML Age 65 & > 261141 11689 Given 05/18/2021 Pneumococcal Vaccine/Pneu movax 23 [id number] 18015 Given 11/16/2020 Moderna Sars-Co v-2 (Cov-19) vacc,100 mcg/ 0.5 mL 12Y+EMR Doc Only [id number] 84908 Given 10/01/2020 Moderna Sars-Co v-2 (Cov-19) vacc,100 mcg/ 0.5 mL 12Y+EMR Doc Only [id number] 27206 Given 06/09/2020 Influenza Vaccine High Do se 0.5ML Age 65 & > 856069 72042 Given 04/28/2020 Pneumococcal Conjugate-Pr evnar 13 [id number] 32493 Given 06/18/2019 Influenza Virus Vaccine, Quadrivalent, Im Use [id number] 85547 Given 06/14/2018 Influenza Virus Vaccine, Quadrivalent, Im Use [id number] 51863 Given 06/06/2017 Influenza Virus Vaccine, Quadrivalent, Im Use [id number] 74393 Given 06/30/2016 Influenza Virus Vaccine, Quadrivalent, Im Use [id number] 68579 Given 07/26/2015 Zostavax Vaccine 38215 Given 06/15/2015 Influenza Virus Vaccine, Quadrivalent, Im Use [id number] 67076 Given 06/23/2014 Influenza Virus Vaccine, Quadrivalent, Im Use [id number] 43669 Given 06/23/2013 Influenza Vac, Split 6 Mo nths And Older [id number] 37474 Given 03/07/2010 Pneumococcal Vaccine/Pneu movax 23 38641 Given 09/03/2009 Tdap (Tetanus, diphtheria & acel. pertussis) Adacel or Boostrix Vital Signs Date Vital Result Comment 05/26/2024 10:12am BP Systolic 122 mmHg BP Diastolic 64 mmHg Heart Rate 65 /min Respiratory Rate 16 /min Weight 246.00 lb Weight 111.586 kg Height 70 inches 5'10" BMI (Body Mass Index) 35.3 kg/m2 [place] Body Weight 166 lb 12/12/2023 10:27am BP Systolic 126 mmHg BP Diastolic 78 mmHg Heart Rate 70 /min Respiratory Rate 16 /min Weight 250.00 lb Weight 113.400 kg Height 70 inches 5'10" BMI (Body Mass Index) 35.9 kg/m2 [place] Body Weight 166 lb Results Test Acquired Date Facility Test Result H/L Range Note Xray 05/26/2024 [facility] US [address] [place] [address] ( )- - US Echocardiogram Transthoracic W Doppler And Color Flow <pending> Comp. Met 12/05/2023 [facility]. [address] [place] [address] [phone] Glucose 95 mg/dL 70-110 BUN 17 [...] GFR 89 ML/MIN/1.7 3SQM >60 Lipid 12/05/2023 [facility]. [address] [place] [address] [phone] Cholesterol 127 mg/dL 0-200 1 Triglyceride 106 mg/dL 0-150 2 HDLD 50 mg/dL See Comment 3 Measured LDL 68 mg/dL 0-130 4 Calc VLDL 21.2 mg/dL See Comment 5 Chol/HDL 2.5 RATIO See Comment 6 Non-HDL 77 mg/dL See Comment 7 Laboratory test finding 12/05/2023 [facility]. [address] [place], [place] [address] [phone] Magnesium 2.1 mg/dL 1.7-2.8 1 CHOLESTEROL Less [...] Target Procedures Date Code Description Status 05/26/2024 [id number] Interpretation Echocardiogra phy, Tranthoracic Completed 05/26/2024 3078F [...] Systolic BP <130 mmHg C ompleted 12/05/2023 38529 Venipuncture Routine Complet ed 02/13/2023 [id number] Colonoscopy Completed Medical Devices Description No Information Available Encounters Type Date Location Provider Dx Diagnosis Office Visit 05/26/2024 10:00a Raghav Donnelly MD Z01.818 Encounter for o ther preprocedural examination M48.07 Spinal stenosis, lum bosacral region I25.10 Athscl heart disease of [place] coronary artery w/o ang pctrs I10 Essential (primary) hypertension E78.2 Mixed hyperlipidemia E66.01 Morbid (severe) obes ity due to excess calories 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 Z68.35 Body mass index [BMI ] 35.0-35.9, adult Office Visit 03/24/2024 11:00a Raghav Donnelly MD M48.07 Spinal stenosis, lumbosacral region Office Visit 12/12/2023 10:30a Raghav Donnelly MD I25.10 Athscl heart disease of [place] coronary artery w/o ang pctrs I10 Essential [...] MD 05/26/2024 I25.10 Atherosclerotic heart disease of [place] coronary artery with David Donnelly MD 05/26/2024 I10 Essential (primary) susan Donnelly MD 05/26/2024 E78.2 Mixed hyperlipidemia David child MD 05/26/2024 E66.01 Morbid (severe) obesity due to excess calories David Donnelly MD 05/26/2024 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 David Donnelly MD 05/26/2024 Z68.35 Body mass index [BMI] 35.0-3 5.9, adult David oDnnelly MD 05/26/2024 I25.10 Atherosclerotic heart disease of [place] coronary artery without angina pectoris ECHO [facility] 05/26/2024 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 ECHO [facility] 03/24/2024 M48.07 Spinal stenosis, lumbosacral region David Donnelly MD 12/12/2023 I25.10 Atherosclerotic heart disease of [place] coronary artery with David Donnelly MD 12/12/2023 [...] Hypomagnesemia David Donnelly MD 12/05/2023 E83.42 Hypomagnesemia [facility] Plan of Treatment Future Appointment(s):* 06/25/2024 10:00 am - David Donnelly MD at [facility] * 06/04/2024 6:30 am - Raghav Nurse at [facility] 05/26/2024 - David Donnelly MD* Z01.818 Encounter for other preprocedural examination * M48.07 Spinal stenosis, lumbosacral region * I25.10 Atherosclerotic heart disease of [place] coronary artery with* Comments: * 1. currently [...] imaged from MRI from 03/2024 Closed 05/01/2024 [facility] [address] [place] [address], [place] [id number] [phone]
--- OUTSIDE RECORDS SUMMARY | 2024-07-29 13:29 | External Medical Summary | Continuity of Care Document ---
Author Name Unknown Organization [facility] Address [address] [place] [address] Phone [phone] Care Team Providers Care Frame Bender Name Role Phone Dermatology-[facility] - Dermatology Care Team Informat ion Women'S Soccer Coach [phone] [facility] Cardiology Care Team Informat ion Women'S Soccer Coach [phone] Orthopedic Surgery S - [facility] Care Team Information Women'S Soccer Coach [phone] Aditi Glover D.P.M. Care Team Information Rece iver [phone] Riley Palmer MD Care Team Information Women'S Soccer Coach [phone] [facility] Office Care Team Information Women'S Soccer Coach [phone] Ricardo Gomez DO Care Team Information Receive r [phone] [facility] - [facility] Care Team Information Women'S Soccer Coach [phone] [place] [employer] Support Care Team Information Re ceiver [phone] Problems Active Problems Provider Date Coronary atherosclerosis [...] Qnty Indications Order ing Provider Date Sildenafil Otbklqt79ea Tablets 1 to 5 tablets prior to intercourse as needed 30tabs N52.01 David Donnelly MD 05/18/2021 Metoprolol Succinate ER50mg Tablets ER 24HR Take 1 Tablet Twice A Day I25.720 David Donnelly MD 04/11/2021 I10 Trazodone KPV74em Tablets Take 1 Tablet AT Bedtime 90tabs G47.00 Zhen Bowman MD 12/06/[address] Slow-MagTable[address] 1 po qd 30tabs E83.42 Unknown 0 Multiple VitaminTablets 30tabs Unknow n Wlcfvag13yf Tablets DR 1 po qd Unknown Dmcxkpbc580ig Tablets 2 po qd Unknown Alfuzosin HCL ER10mg Tablets ER 24HR Take 1 Tablet Daily 90tabs N41.1 David Donnelly MD Mcsouuoybm6wu Tablets take 1 tablet daily 90tabs I10 David Donnelly MD Pbpoxcxfjhnp112km Tablets take 1 tablet daily 90tabs N41.1 David Donnelly MD Rosuvastatin Jrefuzf43hx Tablets 1 by mouth every day 90tabs E78.2 Zhen Bowman MD [id number] Capsules 1 by mouth every day Unknown Immunizations CPT Code Status Date Vaccine Lot # 05414 Given 06/28/2023 Sarscov2 Vaccin e 50 mcg/0.5 ML For Im Use 12 Yrs And Older [id number] 82493 Given 06/06/2023 Influenza Vaccine High Do se 0.5ML Age 65 & > 053409 31680 Given 05/29/2022 Influenza Vaccine High Do se 0.5ML Age 65 & > 372033 79683 Given 12/14/2021 Moderna Covid-1 9 Vaccine 50mcg Booster-EMR Doc Only [id number] 26044 Given 06/27/2021 Moderna Covid-1 9 Vaccine 50mcg Booster-EMR Doc Only 65428 Given 06/15/2021 Influenza Vaccine High Do se 0.5ML Age 65 & > 570591 44413 Given 05/18/2021 Pneumococcal Vaccine/Pneu movax 23 [id number] 15439 Given 11/16/2020 Moderna Sars-Co v-2 (Cov-19) vacc,100 mcg/ 0.5 mL 12Y+EMR Doc Only [id number] 53139 Given 10/01/2020 Moderna Sars-Co v-2 (Cov-19) vacc,100 mcg/ 0.5 mL 12Y+EMR Doc Only [id number] 88764 Given 06/09/2020 Influenza Vaccine High Do se 0.5ML Age 65 & > 806449 44094 Given 04/28/2020 Pneumococcal Conjugate-Pr evnar 13 [id number] 05993 Given 06/18/2019 Influenza Virus Vaccine, Quadrivalent, Im Use [id number] 35589 Given 06/14/2018 Influenza Virus Vaccine, Quadrivalent, Im Use [id number] 60261 Given 06/06/2017 Influenza Virus Vaccine, Quadrivalent, Im Use [id number] 75694 Given 06/30/2016 Influenza Virus Vaccine, Quadrivalent, Im Use [id number] 29654 Given 07/26/2015 Zostavax Vaccine 49442 Given 06/15/2015 Influenza Virus Vaccine, Quadrivalent, Im Use [id number] 07269 Given 06/23/2014 Influenza Virus Vaccine, Quadrivalent, Im Use [id number] 02611 Given 06/23/2013 Influenza Vac, Split 6 Mo nths And Older [id number] 11409 Given 03/07/2010 Pneumococcal Vaccine/Pneu movax 23 64886 Given 09/03/2009 Tdap (Tetanus, diphtheria & acel. pertussis) Adacel or Boostrix Vital Signs Date Vital Result Comment 05/26/2024 10:12am BP Systolic 122 mmHg BP Diastolic 64 mmHg Heart Rate 65 /min Respiratory Rate 16 /min Weight 246.00 lb Weight 111.586 kg Height 70 inches 5'10" BMI (Body Mass Index) 35.3 kg/m2 [place] Body Weight 166 lb 12/12/2023 10:27am BP Systolic 126 mmHg BP Diastolic 78 mmHg Heart Rate 70 /min Respiratory Rate 16 /min Weight 250.00 lb Weight 113.400 kg Height 70 inches 5'10" BMI (Body Mass Index) 35.9 kg/m2 [place] Body Weight 166 lb Results Test Acquired Date Facility Test Result H/L Range Note Xray 05/26/2024 [facility] US [address] [place] [address] ( )- - US Echocardiogram Transthoracic W Doppler And Color Flow <pending> Comp. Met 12/05/2023 [facility]. [address] [place] [address] Glucose 95 mg/dL 70-110 BUN 17 mg/dL [...] GFR 89 ML/MIN/1.7 3SQM >60 Lipid 12/05/2023 [facility]. [address] [place] [address] Cholesterol 127 mg/dL 0-200 1 Triglyceride 106 mg/dL 0-150 2 HDLD 50 mg/dL See Comment 3 Measured LDL 68 mg/dL 0-130 4 Calc VLDL 21.2 mg/dL See Comment 5 Chol/HDL 2.5 RATIO See Comment 6 Non-HDL 77 mg/dL See Comment 7 Laboratory test finding 12/05/2023 [facility]. [address] [place], [place] [address] Magnesium 2.1 mg/dL 1.7-2.8 1 CHOLESTEROL Less [...] Target Procedures Date Code Description Status 05/26/2024 23498 Interpretation Echocardiogra phy, Tranthoracic Completed 05/26/2024 3078F [...] Systolic BP <130 mmHg C ompleted 12/05/2023 58373 Venipuncture Routine Complet ed 02/13/2023 [id number] Colonoscopy Completed Medical Devices Description No Information Available Encounters Type Date Location Provider Dx Diagnosis Office Visit 05/26/2024 10:00a Raghav Donnelly MD Z01.818 Encounter for o ther preprocedural examination M48.07 Spinal stenosis, lum bosacral region I25.10 Athscl heart disease of [place] coronary artery w/o ang pctrs I10 Essential (primary) hypertension E78.2 Mixed hyperlipidemia E66.01 Morbid (severe) obes ity due to excess calories 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 Z68.35 Body mass index [BMI ] 35.0-35.9, adult Office Visit 03/24/2024 11:00a Raghav Donnelly MD M48.07 Spinal stenosis, lumbosacral region Office Visit 12/12/2023 10:30a Raghav Donnelly MD I25.10 Athscl heart disease of [place] coronary artery w/o ang pctrs I10 Essential [...] 05/26/2024 I25.10 Atherosclerotic heart disease of [place] coronary artery with David Donnelly MD 05/26/2024 I10 Essential (primary) susan Donnelly MD 05/26/2024 E78.2 Mixed hyperlipidemia David child MD 05/26/2024 E66.01 Morbid (severe) obesity due to excess calories David Donnelly MD 05/26/2024 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 03/24/2024 M48.07 Spinal stenosis, lumbosacral region David Donnelly MD 12/12/2023 I25.10 Atherosclerotic heart disease of [place] coronary artery with David Donnelly MD 12/12/2023 [...] Hypomagnesemia David Donnelly MD 12/05/2023 E83.42 Hypomagnesemia [facility] Plan of Treatment Future Appointment(s):* 06/25/2024 10:00 am - David Donnelly MD at [facility] * 06/04/2024 6:30 am - Raghav Nurse at [facility] 05/26/2024 - David Donnelly MD* Z01.818 Encounter for other preprocedural examination * M48.07 Spinal stenosis, lumbosacral region * I25.10 Atherosclerotic heart disease of [place] coronary artery with* Comments: * 1. currently [...] imaged from MRI from 03/2024 Closed 05/01/2024 [facility] [address] [place] [address], [place] [id number] [phone]
--- OUTSIDE RECORDS SUMMARY | 2024-07-29 13:29 | External Medical Summary | Continuity of Care Document ---
Author Name Unknown Organization [place] Address [address] [place] [address] Phone [phone] Care Team Providers Care Health Navigator Name Role Phone Dermatology-[facility] - Dermatology Care Team Informat ion Flight Test Mechanic [phone] [facility] Cardiology Care Team Informat ion Flight Test Mechanic [phone] Orthopedic Surgery S - [facility] Care Team Information Flight Test Mechanic [phone] Aditi Glover D.P.M. Care Team Information Rece iver [phone] Riley Palmer MD Care Team Information Flight Test Mechanic [phone] [facility] Office Care Team Information Flight Test Mechanic [phone] Ricardo Gomez DO Care Team Information Receive r [phone] [facility] - [facility] Care Team Information Flight Test Mechanic [phone] [facility] Customer Support Care Team Information Re ceiver [phone] Problems Active Problems Provider Date Coronary atherosclerosis [...] Qnty Indications Order ing Provider Date Sildenafil Orqvskv03fj Tablets 1 to 5 tablets prior to intercourse as needed 30tabs N52.01 David Donnelly MD 05/18/2021 Metoprolol Succinate ER50mg Tablets ER 24HR Take 1 Tablet Twice A Day I25.720 David Donnelly MD 04/11/2021 I10 Trazodone LLH37si Tablets Take 1 Tablet AT Bedtime 90tabs G47.00 Zhen Bowman MD 12/06/[address] Slow-[address] 1 po qd 30tabs E83.42 Unknown 0 Multiple VitaminTablets 30tabs Unknow n Qsadsjb59fw Tablets DR 1 po qd Unknown Qletvdbo986kj Tablets 2 po qd Unknown Alfuzosin HCL ER10mg Tablets ER 24HR Take 1 Tablet Daily 90tabs N41.1 David Donnelly MD Idolklebav8id Tablets take 1 tablet daily 90tabs I10 David Donnelly MD Kigcuzegyecw831fa Tablets take 1 tablet daily 90tabs N41.1 David Donnelly MD Rosuvastatin Ewiluod51wz Tablets 1 by mouth every day 90tabs E78.2 Zhen Bowman MD Coq-[id number] Capsules 1 by mouth every day Unknown Immunizations CPT Code Status Date Vaccine Lot # [id number] Given 06/28/2023 Sarscov2 Vaccin e 50 mcg/0.5 ML For Im Use 12 Yrs And Older [id number] 84961 Given 06/06/2023 Influenza Vaccine High Do se 0.5ML Age 65 & > [id number] 58598 Given 05/29/2022 Influenza Vaccine High Do se 0.5ML Age 65 & > 234143 33779 Given 12/14/2021 Moderna Covid-1 9 Vaccine 50mcg Booster-EMR Doc Only [id number] 14860 Given 06/27/2021 Moderna Covid-1 9 Vaccine 50mcg Booster-EMR Doc Only 98047 Given 06/15/2021 Influenza Vaccine High Do se 0.5ML Age 65 & > 388528 33040 Given 05/18/2021 Pneumococcal Vaccine/Pneu movax 23 [id number] 53981 Given 11/16/2020 Moderna Sars-Co v-2 (Cov-19) vacc,100 mcg/ 0.5 mL 12Y+EMR Doc Only [id number] 85835 Given 10/01/2020 Moderna Sars-Co v-2 (Cov-19) vacc,100 mcg/ 0.5 mL 12Y+EMR Doc Only [id number] 06193 Given 06/09/2020 Influenza Vaccine High Do se 0.5ML Age 65 & > 221616 67922 Given 04/28/2020 Pneumococcal Conjugate-Pr evnar 13 [id number] 60860 Given 06/18/2019 Influenza Virus Vaccine, Quadrivalent, Im Use [id number] 66184 Given 06/14/2018 Influenza Virus Vaccine, Quadrivalent, Im Use [id number] 21116 Given 06/06/2017 Influenza Virus Vaccine, Quadrivalent, Im Use [id number] 53297 Given 06/30/2016 Influenza Virus Vaccine, Quadrivalent, Im Use [id number] 28533 Given 07/26/2015 Zostavax Vaccine 35794 Given 06/15/2015 Influenza Virus Vaccine, Quadrivalent, Im Use [id number] 59785 Given 06/23/2014 Influenza Virus Vaccine, Quadrivalent, Im Use [id number] 33672 Given 06/23/2013 Influenza Vac, Split 6 Mo nths And Older [id number] 40293 Given 03/07/2010 Pneumococcal Vaccine/Pneu movax 23 58280 Given 09/03/2009 Tdap (Tetanus, diphtheria & acel. pertussis) Adacel or Boostrix Vital Signs Date Vital Result Comment 05/26/2024 10:12am BP Systolic 122 mmHg BP Diastolic 64 mmHg Heart Rate 65 /min Respiratory Rate 16 /min Weight 246.00 lb Weight 111.586 kg Height 70 inches 5'10" BMI (Body Mass Index) 35.3 kg/m2 [place] Body Weight 166 lb 12/12/2023 10:27am BP Systolic 126 mmHg BP Diastolic 78 mmHg Heart Rate 70 /min Respiratory Rate 16 /min Weight 250.00 lb Weight 113.400 kg Height 70 inches 5'10" BMI (Body Mass Index) 35.9 kg/m2 [place] Body Weight 166 lb Results Test Acquired Date Facility Test Result H/L Range Note Xray 05/26/2024 [facility] ECHO US [address] [place] [address] ( )- - US Echocardiogram Transthoracic W Doppler And Color Flow <pending> Comp. Met 12/05/2023 [facility] [address] [place] [address] Glucose 95 mg/dL 70-110 BUN 17 mg/dL [...] GFR 89 ML/MIN/1.7 3SQM >60 Lipid 12/05/2023 [facility] [address] [place] [address] [phone] Cholesterol 127 mg/dL 0-200 1 Triglyceride 106 mg/dL 0-150 2 HDLD 50 mg/dL See Comment 3 Measured LDL 68 mg/dL 0-130 4 Calc VLDL 21.2 mg/dL See Comment 5 Chol/HDL 2.5 RATIO See Comment 6 Non-HDL 77 mg/dL See Comment 7 Laboratory test finding 12/05/2023 [facility] [address] [place], [place] [id number] Magnesium 2.1 mg/dL 1.7-2.8 1 CHOLESTEROL Less [...] Target Procedures Date Code Description Status 05/26/2024 97032 Interpretation Echocardiogra phy, Tranthoracic Completed 05/26/2024 3078F [...] Systolic BP <130 mmHg C ompleted 12/05/2023 33526 Venipuncture Routine Complet ed 02/13/2023 [id number] Colonoscopy Completed Medical Devices Description No Information Available Encounters Type Date Location Provider Dx Diagnosis Office Visit 05/26/2024 10:00a Raghav Donnelly MD Z01.818 Encounter for o ther preprocedural examination M48.07 Spinal stenosis, lum bosacral region I25.10 Athscl heart disease of [place] coronary artery w/o ang pctrs I10 Essential (primary) hypertension E78.2 Mixed hyperlipidemia E66.01 Morbid (severe) obes ity due to excess calories 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 Z68.35 Body mass index [BMI ] 35.0-35.9, adult Office Visit 03/24/2024 11:00a Raghav Donnelly MD M48.07 Spinal stenosis, lumbosacral region Office Visit 12/12/2023 10:30a Raghav Donnelly MD I25.10 Athscl heart disease of [place] coronary artery w/o ang pctrs I10 Essential [...] MD 05/26/2024 I25.10 Atherosclerotic heart disease of [place] coronary artery with David Donnelly MD 05/26/2024 I10 Essential (primary) susan Donnelly MD 05/26/2024 E78.2 Mixed hyperlipidemia David child MD 05/26/2024 E66.01 Morbid (severe) obesity due to excess calories David Donnelly MD 05/26/2024 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 David Donnelly MD 05/26/2024 Z68.35 Body mass index [BMI] 35.0-3 5.9, adult David Donnelly MD 05/26/2024 I25.10 Atherosclerotic heart disease of [place] coronary artery without angina pectoris ECHO [facility] 05/26/2024 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 ECHO [facility] 03/24/2024 M48.07 Spinal stenosis, lumbosacral region David Donnelly MD 12/12/2023 I25.10 Atherosclerotic heart disease of [place] coronary artery with David Donnelly MD 12/12/2023 [...] Hypomagnesemia David Donnelly MD 12/05/2023 E83.42 Hypomagnesemia [place] Plan of Treatment Future Appointment(s):* 06/25/2024 10:00 am - David Donnelly MD at [place] * 06/04/2024 6:30 am - Raghav Nurse at [place] 05/26/2024 - David Donnelly MD* Z01.818 Encounter for other preprocedural examination * M48.07 Spinal stenosis, lumbosacral region * I25.10 Atherosclerotic heart disease of [place] coronary artery with* Comments: * 1. currently [...] imaged from MRI from 03/2024 Closed 05/01/2024 [facility] [address] [place] [address], [place] [id number] [phone]
--- OUTSIDE RECORDS SUMMARY | 2024-07-29 13:29 | External Medical Summary | Continuity of Care Document ---
Author Name Unknown Organization [place] Address [address] [place] [address] Phone [phone] Care Team Providers Care Nursing Unit Clerk Name Role Phone Dermatology-[facility] - Dermatology Care Team Informat ion Clothing Man [phone] [facility] Cardiology Care Team Informat ion Clothing Man [phone] Orthopedic Surgery S - [facility] Care Team Information Clothing Man [phone] Aditi Glover D.P.M. Care Team Information Rece iver [phone] Riley Palmer MD Care Team Information Clothing Man [phone] [facility] Office Care Team Information Clothing Man [phone] Ricardo Gomez DO Care Team Information Receive r [phone] [facility] - [facility] Care Team Information Clothing Man [phone] [employer] Customer Support Care Team Information Re ceiver [phone] Problems Active Problems Provider Date Coronary atherosclerosis [...] Qnty Indications Order ing Provider Date Sildenafil Xoiwvod49tf Tablets 1 to 5 tablets prior to intercourse as needed 30tabs N52.01 David Donnelly MD 05/18/2021 Metoprolol Succinate ER50mg Tablets ER 24HR Take 1 Tablet Twice A Day 180tabs I25.720 David Donnelly MD 04/11/2021 I10 Trazodone UXM64ep Tablets Take 1 Tablet AT Bedtime 90tabs G47.00 Zhen Bowman MD 12/06/2016 Slow-MagTablets [address] 1 po qd 30tabs E83.42 Unknown 0 Multiple VitaminTablets 30tabs Unknow n Bkycipc25xu Tablets DR 1 po qd Unknown Urkutgvv151ft Tablets 2 po qd Unknown Alfuzosin HCL ER10mg Tablets ER 24HR Take 1 Tablet Daily 90tabs N41.1 David Donnelly MD Ryguuonroj1js Tablets take 1 tablet daily 90tabs I10 David Donnelly MD Mvrawntmwenv239bc Tablets take 1 tablet daily 90tabs N41.1 David Donnelly MD Rosuvastatin Ydmutqg66xj Tablets 1 by mouth every day 90tabs E78.2 Zhen Bowman MD Coq-[id number] Capsules 1 by mouth every day Unknown Immunizations CPT Code Status Date Vaccine Lot # [id number] Given 06/28/2023 Sarscov2 Vaccin e 50 mcg/0.5 ML For Im Use 12 Yrs And Older [id number] 01704 Given 06/06/2023 Influenza Vaccine High Do se 0.5ML Age 65 & > 314883 69434 Given 05/29/2022 Influenza Vaccine High Do se 0.5ML Age 65 & > 024150 53984 Given 12/14/2021 Moderna Covid-1 9 Vaccine 50mcg Booster-EMR Doc Only [id number] 21521 Given 06/27/2021 Moderna Covid-1 9 Vaccine 50mcg Booster-EMR Doc Only 18039 Given 06/15/2021 Influenza Vaccine High Do se 0.5ML Age 65 & > 193312 16236 Given 05/18/2021 Pneumococcal Vaccine/Pneu movax 23 [id number] 93446 Given 11/16/2020 Moderna Sars-Co v-2 (Cov-19) vacc,100 mcg/ 0.5 mL 12Y+EMR Doc Only [id number] 60501 Given 10/01/2020 Moderna Sars-Co v-2 (Cov-19) vacc,100 mcg/ 0.5 mL 12Y+EMR Doc Only [id number] 77849 Given 06/09/2020 Influenza Vaccine High Do se 0.5ML Age 65 & > 437759 38936 Given 04/28/2020 Pneumococcal Conjugate-Pr evnar 13 [id number] 37613 Given 06/18/2019 Influenza Virus Vaccine, Quadrivalent, Im Use [id number] 18471 Given 06/14/2018 Influenza Virus Vaccine, Quadrivalent, Im Use [id number] 47995 Given 06/06/2017 Influenza Virus Vaccine, Quadrivalent, Im Use [id number] 27698 Given 06/30/2016 Influenza Virus Vaccine, Quadrivalent, Im Use [id number] 36607 Given 07/26/2015 Zostavax Vaccine 50501 Given 06/15/2015 Influenza Virus Vaccine, Quadrivalent, Im Use [id number] 53440 Given 06/23/2014 Influenza Virus Vaccine, Quadrivalent, Im Use [id number] 06726 Given 06/23/2013 Influenza Vac, Split 6 Mo nths And Older [id number] 62456 Given 03/07/2010 Pneumococcal Vaccine/Pneu movax 23 77858 Given 09/03/2009 Tdap (Tetanus, diphtheria & acel. pertussis) Adacel or Boostrix Vital Signs Date Vital Result Comment 05/26/2024 10:12am BP Systolic 122 mmHg BP Diastolic 64 mmHg Heart Rate 65 /min Respiratory Rate 16 /min Weight 246.00 lb Weight 111.586 kg Height 70 inches 5'10" BMI (Body Mass Index) 35.3 kg/m2 [place] Body Weight 166 lb 12/12/2023 10:27am BP Systolic 126 mmHg BP Diastolic 78 mmHg Heart Rate 70 /min Respiratory Rate 16 /min Weight 250.00 lb Weight 113.400 kg Height 70 inches 5'10" BMI (Body Mass Index) 35.9 kg/m2 [place] Body Weight 166 lb Results Test Acquired Date Facility Test Result H/L Range N ote Comp. Met 12/05/2023 [facility]. [address] [place] [address] [phone] Glucose 95 mg/dL 70-110 BUN 17 [...] GFR 89 ML/MIN/1.73 SQM >60 Lipid 12/05/2023 [facility] [address] [place] [address] Cholesterol 127 mg/dL 0-200 1 Triglyceride 106 mg/dL 0-150 2 HDLD 50 mg/dL See Comment 3 Measured LDL 68 mg/dL 0-130 4 Calc VLDL 21.2 mg/dL See Comment 5 Chol/HDL 2.5 RATIO See Comment 6 Non-HDL 77 mg/dL See Comment 7 Laboratory test finding 12/05/2023 [facility] 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 based on my exam PAT labs, EKG, and echo; pt appears to be at an acceptable risk of proposed procedure 2. f/u post op as sched * M48.07 Spinal stenosis, lumbosacral region * I25.10 Atherosclerotic heart disease of [place]in[place] coronary artery with* Comments: * 1. currently [...] imaged from MRI from 03/2024 Closed 05/01/2024 [facility] [address] [place] [address] [phone]
--- OUTSIDE RECORDS SUMMARY | 2024-07-29 13:29 | External Medical Summary | Continuity of Care Document ---
Author Name Unknown Organization [facility] Address [address] [place] [address] Phone [phone] Care Team Providers Care Arranger Assembler Name Role Phone Dermatology-[facility] Dermatology Care Team Informat ion Identifier Horse [phone] [facility] Cardiology Care Team Informat ion Identifier Horse [phone] Orthopedic Surgery S - [facility] Care Team Information Identifier Horse [phone] Aditi Glover D.P.M. Care Team Information Rece iver [phone] Riley Palmer MD Care Team Information Identifier Horse [phone] [facility] Office Care Team Information Identifier Horse [phone] Ricardo Gomez DO Care Team Information Receive r [phone] [facility] - [facility] Care Team Information Identifier Horse [phone] [employer] Customer Support Care Team Information Re ceiver [phone] Problems Active Problems Provider Date Coronary atherosclerosis [...] Qnty Indications Order ing Provider Date Sildenafil Yxjabia00ww Tablets 1 to 5 tablets prior to intercourse as needed 30tabs N52.01 David Donnelly MD 05/18/2021 Metoprolol Succinate ER50mg Tablets ER 24HR Take 1 Tablet Twice A Day I25.720 David Donnelly MD 04/11/2021 I10 Trazodone WLN94mo Tablets Take 1 Tablet AT Bedtime 90tabs G47.00 Zhen Bowman MD 12/06/[address] Slow-MagTablets [address] 1 po qd 30tabs E83.42 Unknown 0 Multiple VitaminTablets 30tabs Unknow n Qhidpyw63wo Tablets DR 1 po qd Unknown Bigdojtr303xr Tablets 2 po qd Unknown Alfuzosin HCL ER10mg Tablets ER 24HR Take 1 Tablet Daily 90tabs N41.1 David Donnelly MD Vbtmazkogn5kp Tablets take 1 tablet daily 90tabs I10 David Donnelly MD Lpluuvjfezfa936kw Tablets take 1 tablet daily 90tabs N41.1 David Donnelly MD Rosuvastatin Lfduvwa12cn Tablets 1 by mouth every day 90tabs E78.2 Zhen Bowman MD Coq-99518ea Capsules 1 by mouth every day Unknown Immunizations CPT Code Status Date Vaccine Lot # [id number] Given 06/28/2023 Sarscov2 Vaccin e 50 mcg/0.5 ML For Im Use 12 Yrs And Older [id number] 04375 Given 06/06/2023 Influenza Vaccine High Do se 0.5ML Age 65 & > 307999 82979 Given 05/29/2022 Influenza Vaccine High Do se 0.5ML Age 65 & > 828844 56816 Given 12/14/2021 Moderna Covid-1 9 Vaccine 50mcg Booster-EMR Doc Only [id number] 44556 Given 06/27/2021 Moderna Covid-1 9 Vaccine 50mcg Booster-EMR Doc Only 83709 Given 06/15/2021 Influenza Vaccine High Do se 0.5ML Age 65 & > 635260 98498 Given 05/18/2021 Pneumococcal Vaccine/Pneu movax 23 [id number] 03168 Given 11/16/2020 Moderna Sars-Co v-2 (Cov-19) vacc,100 mcg/ 0.5 mL 12Y+EMR Doc Only [id number] 52671 Given 10/01/2020 Moderna Sars-Co v-2 (Cov-19) vacc,100 mcg/ 0.5 mL 12Y+EMR Doc Only [id number] 19384 Given 06/09/2020 Influenza Vaccine High Do se 0.5ML Age 65 & > [id number] 17894 Given 04/28/2020 Pneumococcal Conjugate-Pr evnar 13 [id number] 26294 Given 06/18/2019 Influenza Virus Vaccine, Quadrivalent, Im Use [id number] 31149 Given 06/14/2018 Influenza Virus Vaccine, Quadrivalent, Im Use [id number] 34072 Given 06/06/2017 Influenza Virus Vaccine, Quadrivalent, Im Use [id number] 06830 Given 06/30/2016 Influenza Virus Vaccine, Quadrivalent, Im Use [id number] 15405 Given 07/26/2015 Zostavax Vaccine 99209 Given 06/15/2015 Influenza Virus Vaccine, Quadrivalent, Im Use [id number] 04005 Given 06/23/2014 Influenza Virus Vaccine, Quadrivalent, Im Use [id number] 12786 Given 06/23/2013 Influenza Vac, Split 6 Mo nths And Older [id number] 76545 Given 03/07/2010 Pneumococcal Vaccine/Pneu movax 23 02952 Given 09/03/2009 Tdap (Tetanus, diphtheria & acel. pertussis) Adacel or Boostrix Vital Signs Date Vital Result Comment 05/26/2024 10:12am BP Systolic 122 mmHg BP Diastolic 64 mmHg Heart Rate 65 /min Respiratory Rate 16 /min Weight 246.00 lb Weight 111.586 kg Height 70 inches 5'10" BMI (Body Mass Index) 35.3 kg/m2 [place] Body Weight 166 lb 12/12/2023 10:27am BP Systolic 126 mmHg BP Diastolic 78 mmHg Heart Rate 70 /min Respiratory Rate 16 /min Weight 250.00 lb Weight 113.400 kg Height 70 inches 5'10" BMI (Body Mass Index) 35.9 kg/m2 [place] Body Weight 166 lb Results Test Acquired Date Facility Test Result H/L Range Note Xray 05/26/2024 [facility] ECHO US [address] [place] [address] ( )- - US Echocardiogram Transthoracic W Doppler And Color Flow <pending> Comp. Met 12/05/2023 [facility]. [address] [place] [address] Glucose 95 mg/dL 70-110 BUN 17 mg/dL [...] GFR 89 ML/MIN/1.7 3SQM >60 Lipid 12/05/2023 [facility]. [address] [place] [address] Cholesterol 127 mg/dL 0-200 1 Triglyceride 106 mg/dL 0-150 2 HDLD 50 mg/dL See Comment 3 Measured LDL 68 mg/dL 0-130 4 Calc VLDL 21.2 mg/dL See Comment 5 Chol/HDL 2.5 RATIO See Comment 6 Non-HDL 77 mg/dL See Comment 7 Laboratory test finding 12/05/2023 [facility] [address] [place], [place] [address] [phone] Magnesium 2.1 mg/dL 1.7-2.8 1 CHOLESTEROL [...] Target Procedures Date Code Description Status 05/26/2024 60057 Interpretation Echocardiogra phy, Tranthoracic Completed 05/26/2024 3078F [...] Systolic BP <130 mmHg C ompleted 12/05/2023 32376 Venipuncture Routine Complet ed 02/13/2023 [id number] Colonoscopy Completed Medical Devices Description No Information Available Encounters Type Date Location Provider Dx Diagnosis Office Visit 05/26/2024 10:00a Raghav Donnelly MD Z01.818 Encounter for o ther preprocedural examination M48.07 Spinal stenosis, lum bosacral region I25.10 Athscl heart disease of [place] coronary artery w/o ang pctrs I10 Essential (primary) hypertension E78.2 Mixed hyperlipidemia E66.01 Morbid (severe) obes ity due to excess calories 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 Z68.35 Body mass index [BMI ] 35.0-35.9, adult Office Visit 03/24/2024 11:00a Raghav Donnelly MD M48.07 Spinal stenosis, lumbosacral region Office Visit 12/12/2023 10:30a Raghav Donnelly MD I25.10 Athscl heart disease of [place] coronary artery w/o ang pctrs I10 Essential [...] MD 05/26/2024 I25.10 Atherosclerotic heart disease of [place] coronary artery with David Donnelly MD 05/26/2024 I10 Essential (primary) hyperten shannen Donnelly MD 05/26/2024 E78.2 Mixed hyperlipidemia David child MD 05/26/2024 E66.01 Morbid (severe) obesity due to excess calories David Donnelly MD 05/26/2024 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 David Donnelly MD 05/26/2024 Z68.35 Body mass index [BMI] 35.0-3 5.9, adult David Donnelly MD 05/26/2024 I25.10 Atherosclerotic heart disease of [place] coronary artery without angina pectoris ECHO [facility] 05/26/2024 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 ECHO [facility] 03/24/2024 M48.07 Spinal stenosis, lumbosacral region David Donnelly MD 12/12/2023 I25.10 Atherosclerotic heart disease of [place] coronary artery with David Donnelly MD 12/12/2023 [...] Donnelly MD 12/05/2023 E78.2 Mixed hyperlipidemia David cihld MD 12/05/2023 E78.2 Mixed hyperlipidemia Sarah sanchez Nurse 12/05/2023 E83.42 Hypomagnesemia David Donnelly MD 12/05/2023 E83.42 Hypomagnesemia Raghav cordova Plan of Treatment Future Appointment(s):* 06/25/2024 10:00 am - David Donnelly MD at [place] * 06/04/2024 6:30 am - [place] Nurse at [place] 05/26/2024 - David Donnelly MD* Z01.818 Encounter for other preprocedural examination * M48.07 Spinal stenosis, lumbosacral region * I25.10 Atherosclerotic heart disease of [place] coronary artery with* Comments: * 1. currently [...] imaged from MRI from 03/2024 Closed 05/01/2024 [facility] [address] [place] [address] [phone]
--- OUTSIDE RECORDS SUMMARY | 2024-07-29 13:29 | External Medical Summary | Continuity of Care Document ---
Author Name Unknown Organization [place] Address [address] [place] [address] Phone [phone] Care Team Providers Care Implementation Consultant Name Role Phone Dermatology-[facility] - Dermatology Care Team Informat ion Commissioner Of Relocation Services [phone] [facility] Cardiology Care Team Informat ion Commissioner Of Relocation Services [phone] Orthopedic Surgery S - [facility] Care Team Information Commissioner Of Relocation Services [phone] Aditi Glover D.P.M. Care Team Information Rece iver [phone] Riley Palmer MD Care Team Information Commissioner Of Relocation Services [phone] [facility] Office Care Team Information Commissioner Of Relocation Services [phone] Ricardo Gomez DO Care Team Information Receive r [phone] [facility] - [facility] Care Team Information Commissioner Of Relocation Services [phone] [facility] Care Team Information Re ceiver [phone] Problems Active Problems Provider Date Coronary atherosclerosis [...] Qnty Indications Order ing Provider Date Sildenafil [id number] Tablets 1 to 5 tablets prior to intercourse as needed 30tabs N52.01 David Donnelly MD 05/18/2021 Metoprolol Succinate ER50mg Tablets ER 24HR Take 1 Tablet Twice A Day I25.720 David Donnelly MD 04/11/2021 I10 Trazodone QZV59bi Tablets Take 1 Tablet AT Bedtime 90tabs G47.00 Zhen Bowman MD 12/06/[address] 1 po qd 30tabs E83.42 Unknown 0 Multiple VitaminTablets 30tabs Unknow n Ltcqwli48yu Tablets DR 1 po qd Unknown Xrvkrejs221yr Tablets 2 po qd Unknown Alfuzosin HCL ER10mg Tablets ER 24HR Take 1 Tablet Daily 90tabs N41.1 David Donnelly MD Donrwcfplr5kl Tablets take 1 tablet daily 90tabs I10 David Donnelly MD Qdyxujwntugj471hd Tablets take 1 tablet daily 90tabs N41.1 David Donnelly MD Rosuvastatin Bireane28ae Tablets 1 by mouth every day 90tabs E78.2 Zhen Bowman MD [id number] Capsules 1 by mouth every day Unknown Immunizations CPT Code Status Date Vaccine Lot # [id number] Given 06/28/2023 Sarscov2 Vaccin e 50 mcg/0.5 ML For Im Use 12 Yrs And Older [id number] 43947 Given 06/06/2023 Influenza Vaccine High Do se 0.5ML Age 65 & > [id number] 55431 Given 05/29/2022 Influenza Vaccine High Do se 0.5ML Age 65 & > [id number] 57952 Given 12/14/2021 Moderna Covid-1 9 Vaccine 50mcg Booster-EMR Doc Only [id number] 07411 Given 06/27/2021 Moderna Covid-1 9 Vaccine 50mcg Booster-EMR Doc Only [id number] Given 06/15/2021 Influenza Vaccine High Do se 0.5ML Age 65 & > [id number] 18173 Given 05/18/2021 Pneumococcal Vaccine/Pneu movax 23 [id number] 52725 Given 11/16/2020 Moderna Sars-Co v-2 (Cov-19) vacc,100 mcg/ 0.5 mL 12Y+EMR Doc Only [id number] 20770 Given 10/01/2020 Moderna Sars-Co v-2 (Cov-19) vacc,100 mcg/ 0.5 mL 12Y+EMR Doc Only [id number] 53840 Given 06/09/2020 Influenza Vaccine High Do se 0.5ML Age 65 & > [id number] 56214 Given 04/28/2020 Pneumococcal Conjugate-Pr evnar 13 [id number] 21623 Given 06/18/2019 Influenza Virus Vaccine, Quadrivalent, Im Use [id number] 07082 Given 06/14/2018 Influenza Virus Vaccine, Quadrivalent, Im Use [id number] 30581 Given 06/06/2017 Influenza Virus Vaccine, Quadrivalent, Im Use [id number] 11107 Given 06/30/2016 Influenza Virus Vaccine, Quadrivalent, Im Use [id number] 16771 Given 07/26/2015 Zostavax Vaccine 75156 Given 06/15/2015 Influenza Virus Vaccine, Quadrivalent, Im Use [id number] 79381 Given 06/23/2014 Influenza Virus Vaccine, Quadrivalent, Im Use [id number] 29870 Given 06/23/2013 Influenza Vac, Split 6 Mo nths And Older [id number] 47451 Given 03/07/2010 Pneumococcal Vaccine/Pneu movax 23 15718 Given 09/03/2009 Tdap (Tetanus, diphtheria & acel. pertussis) Adacel or Boostrix Vital Signs Date Vital Result Comment 05/26/2024 10:12am BP Systolic 122 mmHg BP Diastolic 64 mmHg Heart Rate 65 /min Respiratory Rate 16 /min Weight 246.00 lb Weight 111.586 kg Height 70 inches 5'10" BMI (Body Mass Index) 35.3 kg/m2 [place] Body Weight 166 lb 12/12/2023 10:27am BP Systolic 126 mmHg BP Diastolic 78 mmHg Heart Rate 70 /min Respiratory Rate 16 /min Weight 250.00 lb Weight 113.400 kg Height 70 inches 5'10" BMI (Body Mass Index) 35.9 kg/m2 [place] Body Weight 166 lb Results Test Acquired Date Facility Test Result H/L Range Note Xray 05/26/2024 [facility] US [address] [place] [address] ( )- - US Echocardiogram Transthoracic W Doppler And Color Flow <pending> Comp. Met 12/05/2023 [facility] [address] [place] [address] Glucose 95 mg/dL 70-110 BUN 17 mg/dL [...] GFR 89 ML/MIN/1.7 3SQM >60 Lipid 12/05/2023 [facility] [address] [place] [address] Cholesterol 127 mg/dL 0-200 1 Triglyceride 106 mg/dL 0-150 2 HDLD 50 mg/dL See Comment 3 Measured LDL 68 mg/dL 0-130 4 Calc VLDL 21.2 mg/dL See Comment 5 Chol/HDL 2.5 RATIO See Comment 6 Non-HDL 77 mg/dL See Comment 7 Laboratory test finding 12/05/2023 [facility] [address] [place], [place] [id number] Magnesium 2.1 mg/dL 1.7-2.8 1 CHOLESTEROL Less [...] Target Procedures Date Code Description Status 05/26/2024 08171 Interpretation Echocardiogra phy, Tranthoracic Completed 05/26/2024 3078F [...] Systolic BP <130 mmHg C ompleted 12/05/2023 58929 Venipuncture Routine Complet ed 02/13/2023 [id number] Colonoscopy Completed Medical Devices Description No Information Available Encounters Type Date Location Provider Dx Diagnosis Office Visit 05/26/2024 10:00a Raghav Donnelly MD Z01.818 Encounter for o ther preprocedural examination M48.07 Spinal stenosis, lum bosacral region I25.10 Athscl heart disease of [place] coronary artery w/o ang pctrs I10 Essential (primary) hypertension E78.2 Mixed hyperlipidemia E66.01 Morbid (severe) obes ity due to excess calories 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 Z68.35 Body mass index [BMI ] 35.0-35.9, adult Office Visit 03/24/2024 11:00a Raghav Donnelly MD M48.07 Spinal stenosis, lumbosacral region Office Visit 12/12/2023 10:30a Raghav Donnelly MD I25.10 Athscl heart disease of [place] coronary artery w/o ang pctrs I10 Essential [...] MD 05/26/2024 I25.10 Atherosclerotic heart disease of [place] coronary artery with David Donnelly MD 05/26/2024 I10 Essential (primary) susan Donnelly MD 05/26/2024 E78.2 Mixed hyperlipidemia David child MD 05/26/2024 E66.01 Morbid (severe) obesity due to excess calories David Donnelly MD 05/26/2024 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 David Donnelly MD 05/26/2024 Z68.35 Body mass index [BMI] 35.0-3 5.9, adult David Donnelly MD 05/26/2024 I25.10 Atherosclerotic heart disease of [place] coronary artery without angina pectoris ECHO [facility] 05/26/2024 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 ECHO [facility] 03/24/2024 M48.07 Spinal stenosis, lumbosacral region David Donnelly MD 12/12/2023 I25.10 Atherosclerotic heart disease of [place] coronary artery with David Donnelly MD 12/12/2023 [...] Hypomagnesemia David Donnelly MD 12/05/2023 E83.42 Hypomagnesemia [facility] Plan of Treatment Future Appointment(s):* 06/25/2024 10:00 am - David Donnelly MD at [facility] * 06/04/2024 6:30 am - Raghav Nurse at [facility] 05/26/2024 - David Donnelly MD* Z01.818 Encounter for other preprocedural examination * M48.07 Spinal stenosis, lumbosacral region * I25.10 Atherosclerotic heart disease of [place] coronary artery with* Comments: * 1. currently [...] imaged from MRI from 03/2024 Closed 05/01/2024 [facility] [address] [place] [address], [place] [id number] [phone]
[2024-07-29] MEDS ORDERED: DO NOT ADMINISTER FLU VACCINE PRN (13:42)
[2024-07-29] MEDS ORDERED: ACETAMINOPHEN 1,000 MG/100 ML VIAL IV PRN (13:42)
[2024-07-29] MEDS ORDERED: DO NOT ADMINISTER PNEUMOCOCCAL VACCINE PRN (13:42)
[2024-07-29] MEDS ORDERED: FAMOTIDINE 20 MG TAB PO PRN (13:42)
[2024-07-29] MEDS ORDERED: ONDANSETRON 4 MG OD TAB PO PRN (13:42)
[2024-07-29] MEDS ORDERED: METOCLOPRAMIDE HCL INJ 5 MG/ML 2 ML VIAL IV PRN (13:42)
[2024-07-29] MEDS ORDERED: oxyCODONE HCL IR 5 MG TAB (IMMEDIATE RELEASE) PO PRN (13:42)
[2024-07-29] MEDS ORDERED: bisacodyL 10 MG SUPP PR PRN (13:42)
[2024-07-29] MEDS ORDERED: MAGNESIUM HYDROXIDE SUSP 30 ML UDC PO PRN (13:42)
[2024-07-29] MEDS ORDERED: HYDROmorphone INJ 0.5 MG/0.5 ML SYR IV PRN (13:42)
[2024-07-29] MEDS ORDERED: LORazepam 2 MG/1 ML VIAL IV PRN (13:42)
[2024-07-29] MEDS ORDERED: traMADol HCL 50 MG TABLET PO PRN (13:42)
[2024-07-29] MEDS ORDERED: diphenhydrAMINE Capsule 25 MG CAP PO PRN (13:42)
[2024-07-29] MEDS ORDERED: ALUMINUM/MAGNESIUM SUSP 30 ML UDC PO PRN (13:42)
[2024-07-29] MEDS ORDERED: NALOXONE HCL 0.4 MG/1 ML VIAL/CARP IV PRN (13:42)
[2024-07-29] MEDS ORDERED: hydrOXYzine HCl 25 MG TAB PO PRN (13:42)
[2024-07-29] MEDS ORDERED: PROMETHAZINE 12.5 MG/50.5 ML BAG IV PRN (13:42)
[2024-07-29] MEDS ORDERED: SOD PHOSPHATE/SOD BIPHOSPHATE ENEMA 132 ML BTL PR PRN (13:42)
[2024-07-29] MEDS ORDERED: LORazepam 0.5 MG TAB PO PRN (13:42)
--- NOTE | 2024-07-29 14:06 | Consultation ---
Date of Consultation July 29, 2024 Assessment & Plan (1) Neurogenic claudication due to lumbar spinal stenosis: (2) CAD (coronary artery disease): (3) LBBB (left bundle branch block): (4) Hypertension: (5) Aortic root dilation: Plan This is a 69-year-old male who has significant past medical history of CAD, chronic LBBB, Chronic HFrEF, aortic root dilatation, HTN, HLD, BPH, osteoarthritis who presents for elective spinal surgery by Dr. Gomez. We have been consulted for postop medical management. Neurogenic claudication due to lumbar spinal stenosis status post L3-S1 lumbar decompression fusion by Dr. Gomez EBL approximately 600 mL pain/wound management per orthopedics activity and therapy as prescribed orthopedics monitor hemoglobin and MONAE drain output, preop hemoglobin 14.5 CAD with history of CABG x 3 in 2009 chronic LBBB aortic root dilatation HTN/HLD pt with pre op echo Echo from 05/26/24: mildly depressed LVSEF 40-45%, mild decrease in global wall motion, grade II DD, left atrium mildly dilated, aortic root dilatation to 4.1cm pt states he hasn't followed with is health education teacher in some time as PCP has been managing, he feels echo findings are normal for him he denies CP/SOB will consult HIM to obtain PCP/Cardiology records and prior echo continue asa, lisinopril, metoprolol, statin monitor volume status closely DVT ppx: per primary Dispo: per primary PCP: Jim Donnelly FULL CODE Thank you for this consultation. We will follow the patient with you during their hospital stay. You can reach a member of the [facility] Hospitalist Team 26/03 via hospitalist role on tiger text. I spent a total of 50 minutes reviewing notes, outpatient records, labs, medication, coordinating, documenting and providing care for this patient excluding time spent in the performance of separately billed services. Pt was seen and examined in collaboration with Dr. Loera, please see addendum Supervising Physician Co-Signing Physician Notes Patient seen and examined Agree with findings and plans as detailed by Lupis Nevarez PA-C I spent a total of 35 minutes coordinating, documenting and providing care for this patient excluding time spent in performance of separately billed services History of Present Illness Requesting Physician: Dr. Gomez Reason for Consultation: Post op medical management Attending Physician: Ricardo Gomez, DO History of Present Illness This is a 69-year-old male who has significant past medical history of CAD, chronic LBBB, Chronic HFrEF, aortic root dilatation, HTN, HLD, BPH, osteoarthritis who presents for elective spinal surgery by Dr. Gomez. We have been consulted for postop medical management. Patient underwent L3-S1 lumbar decompression fusion. He tolerated the procedure well. Pt follows with [facility] and underwent pre op visit. This external record was reviewed. He was seen David Donnelly. His Echo was reviewed from May which reveals a mild reduction in his EF. He felt this was normal for him. He does have known hx of CAD s/p CABG in 2009. He hasn't followed with cardiology in some time. His is at bedside who also helps elicit hx. Allergies Allergy/AdvReac Type Severity Reaction Status Date / Time No Known Allergies Allergy Verified 07/29/24 07:46 Home Medications Medication Instructions Recorded Confirmed Type alfuzosin 10 mg tablet,extended 10 mg PO PM 05/08/24 07/29/24 History release 24 hr (Uroxatral) aspirin 81 mg tablet,delayed 81 mg PO QAM 05/08/24 07/29/24 History release coenzyme Q10 200 mg capsule (Co 200 mg PO QAM 05/08/24 07/29/24 History Q-10) fiber 1 tab PO PM 05/08/24 07/29/24 History lisinopril 5 mg tablet 5 mg PO QAM 05/08/24 07/29/24 History magnesium chloride 71.5 mg 71.5 mg PO QAM 05/08/24 07/29/24 History (magnesium chloride) tablet,delayed release (Slow-Mag) metoprolol succinate 50 mg 50 mg PO BID 05/08/24 07/29/24 History tablet,extended release 24 hr (Toprol XL) multivitamin 1 tab PO QAM 05/08/24 07/29/24 History rosuvastatin 40 mg tablet 40 mg PO HS 05/08/24 07/29/24 History trazodone 50 mg tablet 50 mg PO HS 05/08/24 07/29/24 History trimethoprim 100 mg tablet 100 mg PO PM 05/08/24 07/29/24 History Vitamin D3 1 tab PO BID 07/08/24 07/29/24 History loratadine 10 mg tablet (Claritin) 10 mg PO DAILY 07/08/24 07/29/24 History oxycodone 5 mg tablet 5 mg PO Q6H PRN pain #30 tabs 07/29/24 Rx tramadol 50 mg tablet 50 mg PO Q6H PRN pain, moderate 07/29/24 Rx #30 tabs Patient History Medical History Diverticulosis unsure of diverticulitis h/o-denies any recent flare Aortic root dilation 4.5 cm on 2020 echo Bigeminy bigeminal PVCs LBBB (left bundle branch block) CAD (coronary artery disease) 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 3 in 2009; 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 Osteoarthritis DDD (degenerative disc disease), lumbosacral BPH (benign prostatic hyperplasia) Hypertension controlled, stable per pt Hyperlipidemia Surgical History Hx of shoulder surgery left in high school Hx of melanoma excision right shoulder History of colonoscopy S/P correction of deviated nasal septum History of tonsillectomy History of cardiac cath 2020 > no stents S/P triple vessel bypass 2009 Social History Smoking Status: Former smoker Smoking End Date: 20 yrs ago; Second Hand Exposure: No; Do You Dip or Chew Tobacco: No; Tobacco Cessation Education Requested by Patient: No Hx Alcohol Use: Yes Alcohol type: beer Hx Substance Use: Yes Substance Use Type Other:: rare use > advised Preferred Language: Kiswahili Communication Ability: Effective Production Analyst Required: No Beliefs That Will Affect Care: None Current Living Situation: Spouse Other Information That Helps Us Care for You: No Feels Safe at Home: Yes Safety Concerns: Feels Safe At This Time Assistive Devices: Denture - Upper and Glasses Review of Systems Review of Systems: All systems reviewed & are unremarkable except as noted in HPI & below Physical Exam Physical Exam: Constitutional: WD/WN, vitals as above, NAD, sitting up in bed, pleasant, conversing easily Head: Normocephalic, Atraumatic Eyes: PERRL, conjunctivae normal, anicteric sclerae ENMT: external ear and nose normal, oropharynx normal Neck: trachea midline, no thyromegaly normal visual inspection Respiratory: normal respiratory effort, lungs clear to auscultation, no wheeze, rales, rhonchi. Normal insp/exp effort, no accessory muscle use Cardiovascular: RRR, no murmur, no edema Vessels: no JVD or carotid bruit Chest: normal inspection of chest Abdomen: normal bowel sounds, soft, nontender, no hepatosplenomegaly Musculoskeletal: no cyanosis or clubbing, extremities motor strength 5/5 Skin: no rashes, warm and dry normal turgor Neurologic: PERRL, EOMI, accommodation nl, no face palsy, no dysarthria CN's II-XI intact bilaterally and moves all extremities Psychiatric: A+Ox3, euthymic affect Lymphatic: no cervical or axillary lymphadenopathy : deferred Results & Data Vital Signs (Past 12 Hours) Vital Signs Temp Pulse Pulse Resp BP Pulse Ox O2 Del Method 07/29/24 13:45 Nasal Cannula 07/29/24 13:45 36.5 C 84 18 117/70 95 Nasal Cannula 07/29/24 13:15 36.5 C 86 22 118/72 93 Nasal Cannula 07/29/24 13:05 87 20 120/69 93 Room Air 07/29/24 12:55 84 18 136/68 94 Room Air 07/29/24 12:45 90 20 149/78 H 95 Room Air 07/29/24 12:35 36.2 C L 97 H 16 145/79 H 99 Oxymask 07/29/24 07:51 36.5 C 92 H 22 146/81 H 96 Room Air O2 Flow Rate 07/29/24 13:45 07/29/24 13:45 2 07/29/24 13:15 2 07/29/24 13:05 07/29/24 12:55 07/29/24 12:45 07/29/24 12:35 6 07/29/24 07:51 Laboratory Results Pre op labs from 05/21 were independently reviewed and interpreted by myself. Diagnostic Findings pre operative cxr viewed and independently interpreted by myself. Medications Administered Current Inpatient Medications Acetaminophen (Acetaminophen 500 Mg Tab) 1,000 mg PO PREOP MIRTA Stop: 07/29/24 18:00 Last Admin: 07/29/24 07:58 Dose: 1,000 mg Acetaminophen (Acetaminophen 500 Mg Tab) 1,000 mg PO Q8H PRN PRN Reason: MILD Pain Scale 1,2,3 & Pre PT Stop: 08/28/24 13:41 Al Hydrox/Mg Hydrox/Simethicone (Aluminum/Magnesium Susp 30 Ml Udc) 30 ml PO Q6H PRN PRN Reason: Dyspepsia Stop: 08/28/24 13:41 Aspirin (Aspirin 81 Mg Ectab) 81 mg PO QAM [facility] Stop: 08/29/24 08:59 Atropine Sulfate (Atropine Sulfate 0.1 Mg/Ml 10ml Syr) 0.5 mg IV Q1M PRN PRN Reason: PACU Use-HR<40 &/or Bradycardi Stop: 07/29/24 16:53 Bisacodyl (Bisacodyl 10 Mg Supp) 10 mg FL DAILY PRN PRN Reason: Constipation Stop: 08/28/24 13:41 Celecoxib (Celebrex 200 Mg Cap) 200 mg PO PREOP MIRTA Stop: 07/29/24 18:00 Last Admin: 07/29/24 07:59 Dose: 200 mg Diphenhydramine HCl (Diphenhydramine Capsule 25 Mg Cap) 25 mg PO Q6H PRN PRN Reason: Allergic Rhinitis/Insomnia Stop: 08/28/24 13:41 Famotidine (Famotidine 20 Mg Tab) 20 mg PO Q12H PRN PRN Reason: Dyspepsia Stop: 08/28/24 13:41 Gabapentin (Gabapentin 300 Mg Cap) 300 mg PO PREOP MIRTA Stop: 07/29/24 18:00 Last Admin: 07/29/24 07:59 Dose: 300 mg Hydromorphone HCl (Hydromorphone Inj 1 Mg/Ml Syringe) 0.25 mg IV Q5M PRN PRN Reason: PACU Use Only-Pain Stop: 07/29/24 16:54 Hydromorphone HCl (Hydromorphone Inj 0.5 Mg/0.5 Ml Syr) 0.5 mg IV Q3H PRN PRN Reason: MODERATE Pain (Scale 4,5,6) & Pre PT Stop: 08/12/24 13:41 Hydromorphone HCl (Hydromorphone Inj 1 Mg/Ml Syringe) 1 mg IV Q3H PRN PRN Reason: SEVERE Pain (Scale 7,8,9,10) Stop: 08/12/24 13:41 Hydroxyzine HCl (Hydroxyzine Hcl 25 Mg Tab) 25 mg PO Q8H PRN PRN Reason: Anxiety Stop: 08/28/24 13:41 Lactated Ringer's (Lr) 1,000 mls @ 15 mls/hr IV .Q24H [facility]IR[facility] Stop: 07/30/24 05:59 Last Infusion: 07/29/24 09:15 Dose: Infused Lactated Ringer's (Lr) 1,000 mls @ 60 mls/hr IV .[id number] [facility] Stop: 07/29/24 22:39 Last Admin: 07/29/24 07:59 Dose: Not Given Cefazolin Sodium (Ancef 2000mg) 2,000 mg in 15 mls @ 3.75 mls/min IV PREOP MIRTA; Protocol Stop: 07/29/24 18:00 Last Admin: 07/29/24 09:16 Dose: 3.75 mls/min Promethazine HCl 6.25 mg/ (Sodium Chloride) 50.25 mls @ 204 mls/hr IV ONCE PRN PRN Reason: PACU Use Only-Nausea/Vomiting Stop: 07/29/24 16:54 Acetaminophen (Ofirmev) 1,000 mg in 100 mls @ 400 mls/hr IV Q8H PRN PRN Reason: Pain Rating 1-3 & Pre PT Stop: 07/30/24 13:42 Cefazolin Sodium (Ancef 2000mg) 2,000 mg in 15 mls @ 3.75 mls/min IV Q8H MIRTA; Protocol Stop: 07/30/24 02:33 Promethazine HCl (Phenergan) 12.5 mg in 50.5 mls @ 202 mls/hr IV Q6H PRN PRN Reason: Nausea And Vomiting Stop: 08/28/24 13:41 Dexamethasone 6 mg/ Syringe 1.5 mls @ 1 mls/min IV DAILY MIR[facility] Stop: 08/01/24 09:02 Influenza Virus Vaccine Quadrival (Do Not Administer Flu Vaccine) 1 each N/A PRN PRN PRN Reason: Notification Stop: 08/28/24 13:41 Labetalol HCl (Labetalol Hcl Iv 5 Mg/Ml 20ml) 5 mg IV Q5M PRN PRN Reason: PACU Use-SBP>160 or DBP>100 Stop: 07/29/24 16:54 Lisinopril (Lisinopril 5 Mg Tab) 5 mg PO QAM [facility] Stop: 08/29/24 08:59 Loratadine (Loratadine 10 Mg Tab) 10 mg PO DAILY [facility] Stop: 08/29/24 08:59 Lorazepam (Lorazepam 0.5 Mg Tab) 0.5 mg PO Q8H PRN PRN Reason: Sedation/Anxiety Stop: 08/28/24 13:41 Lorazepam (Lorazepam 2 Mg/1 Ml Vial) 0.5 mg IV Q8H PRN PRN Reason: Sedation/Anxiety Stop: 08/28/24 13:41 Magnesium Hydroxide (Magnesium Hydroxide Susp 30 Ml Udc) 30 ml PO Q24H PRN PRN Reason: Constipation Stop: 08/28/24 13:41 Metoclopramide HCl (Metoclopramide Hcl Inj 5 Mg/Ml 2 Ml Vial) 10 mg IV Q6H PRN PRN Reason: Nausea &/or Vomiting Stop: 08/28/24 13:41 Metoprolol Succinate (Metoprolol Succ 50mg Ext Rel Tab) 50 mg PO BID [facility] Stop: 08/28/24 20:59 Naloxone HCl (Naloxone Hcl 0.4 Mg/1 Ml Vial/Carp) 0.1 mg IV Q5M PRN PRN Reason: Oversedation/Resp depression Stop: 08/28/24 13:41 Non-Formulary Medication (Alfuzosin [Uroxatral]) 10 mg PO PM [facility] Stop: 08/28/24 20:59 Non-Formulary Medication (Coenzyme Q10 [Co Q-10]) 200 mg PO QAM [facility] Stop: 08/29/24 08:59 Non-Formulary Medication (Magnesium Chloride [Slow-Mag]) 71.5 mg PO QAM [facility] Stop: 08/29/24 08:59 Non-Formulary Medication (Multivitamin) 1 tab PO QAM [facility] Stop: 08/29/24 08:59 Non-Formulary Medication (Trimethoprim) 100 mg PO PM [facility] Stop: 08/28/24 20:59 Non-Formulary Medication (Vitamin D3) 1 tab PO BID [facility] Stop: 08/28/24 20:59 Ondansetron HCl (Ondansetron Inj 2 Mg/Ml 2 Ml Vial) 4 mg IV ONCE PRN PRN Reason: PACU Use Only-Nausea/Vomiting Stop: 07/29/24 16:54 Ondansetron HCl (Ondansetron Inj 2 Mg/Ml 2 Ml Vial) 4 mg IV Q6H PRN PRN Reason: Nausea &/or Vomiting Stop: 08/28/24 13:41 Ondansetron HCl (Ondansetron 4 Mg Od Tab) 4 mg PO Q6H PRN PRN Reason: Nausea Stop: 08/28/24 13:41 Oxycodone HCl (Oxycodone Hcl Ir 5 Mg Tab (Immediate Release)) 5 - 10 mg PO Q4H PRN PRN Reason: Pain & Pre PT Stop: 08/12/24 13:41 Pneumococcal Polyvalent Vaccine (Do Not Administer Pneumococcal Vaccine) 1 each N/A PRN PRN PRN Reason: Notification Stop: 08/28/24 13:41 Polyethylene Glycol (Polyethylene (Miralax) 17 Gm Pack) 17 gm PO Q6 [facility] Stop: 08/29/24 05:59 Rosuvastatin Calcium (Rosuvastatin Calcium 20 Mg Tab) 40 mg PO HS [facility] Stop: 08/28/24 20:59 Senna/Docusate Sodium (Docusate Sodium/Senna 50/8.6mg Tab) 2 tab PO HS [facility] Stop: 08/28/24 20:59 Sodium Biphosphate/Sodium Phosphate (Sod Phosphate/Sod Biphosphate Enema 132 Ml Btl) 132 ml FL ONE PRN PRN Reason: Constipation Stop: 08/28/24 13:41 Tramadol HCl (Tramadol Hcl 50 Mg Tablet) 50 - 100 mg PO Q4H PRN PRN Reason: Moderate-Severe pain & Pre PT Stop: 08/28/24 13:41 Trazodone HCl (Trazodone Hcl 50 Mg Tab) 50 mg PO HS [facility] Stop: 08/28/24 20:59 ECG Additional Comments: I have independently reviewed and interpreted patient's admitting EKG which revealed: 58 SP, qtc 47ms, LBBB Echo from 05/26/24: mildly depressed LVSF 40-45%, mild decrease in global wall motion, grade II DD, left atrium mildly dilated, aortic root dilatation to 4.1cm
--- NOTE | 2024-07-29 14:24 | Anesthesiology Progress Note ---
Date of Service July 29, 2024 Anesthesia Post Procedure Vital Signs Vital Signs: Temp Pulse Pulse Resp BP Pulse Ox O2 Del Method 07/29/24 13:45 Nasal Cannula 07/29/24 13:45 36.5 C 84 18 117/70 95 Nasal Cannula 07/29/24 13:15 36.5 C 86 22 118/72 93 Nasal Cannula 07/29/24 13:05 87 20 120/69 93 Room Air 07/29/24 12:55 84 18 136/68 94 Room Air 07/29/24 12:45 90 20 149/78 H 95 Room Air 07/29/24 12:35 36.2 C L 97 H 16 145/79 H 99 Oxymask 07/29/24 07:51 36.5 C 92 H 22 146/81 H 96 Room Air O2 Flow Rate 07/29/24 13:45 07/29/24 13:45 2 07/29/24 13:15 2 07/29/24 13:05 07/29/24 12:55 07/29/24 12:45 07/29/24 12:35 6 07/29/24 07:51 Transfer of Care Handoff Completed per policy Notes Mental Status: alert / awake / arousable Patient Amnestic to Procedure: Yes Nausea / Vomiting: adequately controlled Pain: adequately controlled Airway Patency, RR, SpO2: stable & adequate BP & HR: stable & adequate Hydration State: stable & adequate Anesthetic Complications: no major complications apparent
--- NOTE | 2024-07-29 16:31 | Fluoroscopy Report ---
FL lumbar spine 2-3V CLINICAL HISTORY: L3-S1 DECOMP AND FUSION COMPARISON STUDY: None. FLUOROSCOPY TIME: 32 seconds. Ka,r: 26.88 mGy FLUOROSCOPIC IMAGES: 3 FINDINGS: Fluoroscopy was provided during L3-S1 decompression, discectomy and pedicle screw fusion. T he hardware is intact. IMPRESSION: Fluoroscopy provided during L3-S1 decompression and fusion. ACT 112: Negative or not required by law. Electronically signed by: Dimas Soriano M.D. 07/29/2024 4:29 PM
[2024-07-29] MEDS: COUGH DROP (SUGAR FREE) LOZ 24 LOZ/1 BOX BUCCAL PRN (20:45)
[2024-07-29] MEDS: DOCUSATE SODIUM/SENNA 50/8.6MG TAB PO SCH (20:48)
[2024-07-29] MEDS: METOPROLOL SUCC 50MG EXT REL TAB PO SCH (20:48)
[2024-07-29] MEDS: CHOLECALCIFEROL 25 MCG (1000 UNITS) TAB PO SCH (20:49)
[2024-07-29] MEDS: traZODone HCL 50 MG TAB PO SCH (22:29)
[2024-07-29] MEDS: ROSUVASTATIN CALCIUM 20 MG TAB PO SCH (22:29)
[2024-07-29] MEDS: ACETAMINOPHEN 500 MG TAB PO PRN (22:29)
[2024-07-29] MEDS ORDERED: Nursing to Pharmacy Communication SCH (23:30)
[2024-07-29] MEDS: TAMSULOSIN HCL 0.4 MG CAP PO SCH (23:39)
[2024-07-30 06:08] LABS: BUN Creatinine Ratio 25.3 (10-20); Calcium 8.2 mg/dl (8.6-10.3); Creatinine Clr Calc Pharmacy 118.6 ml/min; Potassium 4.3 mmol/L (3.5-5.1)
[2024-07-30 06:12] LABS: Basophils # (auto) 0.01 K/uL (0.00-0.20); Basophils % (auto) 0.1 %; Hematocrit (blood only) 34.9 % (42.0-52.0); Hemoglobin 11.6 g/dl (14.0-18.0); Immature Granulocytes # (auto) 0.05 K/uL (0.01-0.20); Immature Granulocytes % (auto) 0.4 %; Lymphocytes # (auto) 1.37 K/uL (1.20-3.40); Lymphocytes % (auto) 11.8 %; Mean Corpuscular Hemoglobin 30.1 pg (25.0-34.0); Mean Corpuscular Hgb Conc 33.2 g/dL (32.0-36.0); Mean Corpuscular Volume 90.4 fL (80.0-100.0); Mean Platelet Volume 9.6 fL (9.4-12.4); Monocytes # (auto) 1.04 K/uL (0.11-0.59); Neutrophils # (auto) 9.14 K/uL (1.40-6.50); Neutrophils % (auto) 78.7 %; Platelet Count 184 K/uL (130-400); RDW Coefficient of Variation 13.6 % (11.5-14.5); RDW Standard Deviation 45.2 fL (36.4-46.3); Red Blood Count 3.86 M/uL (4.70-6.10); White Blood Count 11.61 K/ul (4.8-10.8)
[2024-07-30] MEDS: POLYETHYLENE (MIRALAX) 17 GM PACK PO SCH (06:25)
[2024-07-30] MEDS: TAMSULOSIN HCL 0.4 MG CAP PO SCH (08:25)
[2024-07-30] MEDS: MAGNESIUM CHLORIDE W/CALCIUM 64MG DELAYED REL TAB PO SCH (08:27)
[2024-07-30] MEDS: lisinopril 5 MG TAB PO SCH (08:27)
[2024-07-30] MEDS: ASPIRIN 81 MG ECTAB PO SCH (08:27)
[2024-07-30] MEDS: MULTIVITAMIN TAB PO SCH (08:29)
[2024-07-30] MEDS: dexAMETHasone 6 MG in SYRINGE 0 ML IV SCH (08:30)
[2024-07-30] MEDS ORDERED: NON-FORMULARY MEDICATION (Coenzyme Q10 [Co Q-10] 200 mg Capsule) PO SCH (09:00)
--- NOTE | 2024-07-30 10:11 | Hospitalist Progress Note ---
Date of Service July 30, 2024 Assessment & Plan (1) Neurogenic claudication due to lumbar spinal stenosis: (2) CAD (coronary artery disease): (3) LBBB (left bundle branch block): (4) Hypertension: (5) Aortic root dilation: (6) Acute postoperative anemia due to expected blood loss: Plan This is a 69-year-old male who has significant past medical history of CAD, chronic LBBB, Chronic HFrEF, aortic root dilatation, HTN, HLD, BPH, osteoarthritis who presents for elective spinal surgery by Dr. Gomez. We have been consulted for postop medical management. Neurogenic claudication due to lumbar spinal stenosis status post L3-S1 lumbar decompression fusion by Dr. Gomez, POD # 1 EBL approximately 600 mL pain/wound management per orthopedics activity and therapy as prescribed orthopedics monitor hemoglobin and MONAE drain output, preop hemoglobin 14.5 Acute blood loss anemia in setting of expected post operative blood loss and dilutional component pre op hgb 14.5, MONAE drain outpt thus far 955ml hgb today 11.6, monitor hgb CAD with history of CABG x 3 in 2009 chronic LBBB aortic root dilatation HTN/HLD pt with pre op echo Echo from 05/26/24: mildly depressed LVSEF 40-45%, mild decrease in global wall motion, grade II DD, left atrium mildly dilated, aortic root dilatation to 4.1cm pt states 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 We will follow the patient with you during their hospital stay. You can reach a member of the [facility] Hospitalist Team 26/03 via hospitalist role on tiger text. I spent a total of 40 minutes reviewing notes, outpatient records, labs, medication, coordinating, documenting and providing care for this patient excluding time spent in the performance of separately billed services. Pt was seen and examined in collaboration with Dr. Hamm, please see addendum Admission and Anticipated Discharge Date Admission Date: July 29, 2024 Subjective He feels well this morning. States he is ready to go, "dancing." He denies f/c/s, chest pain, sob, n/v/d. He is tolerating diet. HE reports minimal incisional pain. Review of Systems Review of Systems: All systems reviewed & are unremarkable except as noted in HPI & below Physical Exam Physical Exam: Gen: WD/WN, M, sitting up in bed, NAD, A&O x3 HEENT: Normocephalic, atraumatic, conjunctivae moist, sclerae anicteric, mucous membranes moist. Lung: Clear to Auscultation bilaterally, no wheezes/rales/rhonchi Heart: Regular rate, regular rhythm, no murmurs, rubs, or gallops Abdomen: Soft, NT, ND +BS x 4 Extremities: No edema, incision/dressing CDI + MONAE drain with serosang drainage Skin: Warm, no rash, negative turgor. + jiménez with yellow urine Results & Data Results & Data Vital Signs (Past 12 Hours) Vital Signs Temp Pulse Resp BP Pulse Ox O2 Del Method 07/30/24 07:43 Room Air 07/30/24 07:20 36.5 C 80 120/65 96 Room Air 07/30/24 03:00 36.8 C 84 18 135/75 96 Room Air 07/29/24 23:00 36.5 C 79 18 119/70 96 Room Air Laboratory Results Short CBC 07/30/24 Range/Units 05:34 WBC 11.61 H (4.8-10.8) K/ul Hgb 11.6 L (14.0-18.0) g/dl Hct 34.9 L (42.0-52.0) % Plt Count 184 (130-400) K/uL BMP 07/30/24 05:34 Sodium 138 Potassium 4.3 Chloride 106 Carbon Dioxide 27 BUN 19 Creatinine 0.75 Glucose 126 H Calcium 8.2 L I have independently reviewed and interpreted patient's CBC, BMP Medications Administered Current Inpatient Medications Acetaminophen (Acetaminophen 500 Mg Tab) 1,000 mg PO Q8H PRN PRN Reason: MILD Pain Scale 1,2,3 & Pre PT Stop: 08/28/24 13:41 Last Admin: 07/30/24 07:26 Dose: 1,000 mg Al Hydrox/Mg Hydrox/Simethicone (Aluminum/Magnesium Susp 30 Ml Udc) 30 ml PO Q6H PRN PRN Reason: Dyspepsia Stop: 08/28/24 13:41 Aspirin (Aspirin 81 Mg Ectab) 81 mg PO QAM MIRTA Stop: 08/29/24 08:59 Last Admin: 07/30/24 08:27 Dose: 81 mg Bisacodyl (Bisacodyl 10 Mg Supp) 10 mg UT DAILY PRN PRN Reason: Constipation Stop: 08/28/24 13:41 Diphenhydramine HCl (Diphenhydramine Capsule 25 Mg Cap) 25 mg PO Q6H PRN PRN Reason: Allergic Rhinitis/Insomnia Stop: 08/28/24 13:41 Famotidine (Famotidine 20 Mg Tab) 20 mg PO Q12H PRN PRN Reason: Dyspepsia Stop: 08/28/24 13:41 Hydromorphone HCl (Hydromorphone Inj 0.5 Mg/0.5 Ml Syr) 0.5 mg IV Q3H PRN PRN Reason: MODERATE Pain (Scale 4,5,6) & Pre PT Stop: 08/12/24 13:41 Hydromorphone HCl (Hydromorphone Inj 1 Mg/Ml Syringe) 1 mg IV Q3H PRN PRN Reason: SEVERE Pain (Scale 7,8,9,10) Stop: 08/12/24 13:41 Hydroxyzine HCl (Hydroxyzine Hcl 25 Mg Tab) 25 mg PO Q8H PRN PRN Reason: Anxiety Stop: 08/28/24 13:41 Acetaminophen (Ofirmev) 1,000 mg in 100 mls @ 400 mls/hr IV Q8H PRN PRN Reason: Pain Rating 1-3 & Pre PT Stop: 07/30/24 13:42 Promethazine HCl (Phenergan) 12.5 mg in 50.5 mls @ 202 mls/hr IV Q6H PRN PRN Reason: Nausea And Vomiting Stop: 08/28/24 13:41 Dexamethasone 6 mg/ Syringe 1.5 mls @ 1 mls/min IV DAILY MIRTA Stop: 08/01/24 09:02 Last Admin: 07/30/24 08:30 Dose: 1 mls/min Influenza Virus Vaccine Quadrival (Do Not Administer Flu Vaccine) 1 each N/A PRN PRN PRN Reason: Notification Stop: 08/28/24 13:41 Lisinopril (Lisinopril 5 Mg Tab) 5 mg PO QAM [facility] Stop: 08/29/24 08:59 Last Admin: 07/30/24 08:27 Dose: 5 mg Loratadine (Loratadine 10 Mg Tab) 10 mg PO DAILY [facility] Stop: 08/29/24 08:59 Lorazepam (Lorazepam 0.5 Mg Tab) 0.5 mg PO Q8H PRN PRN Reason: Sedation/Anxiety Stop: 08/28/24 13:41 Lorazepam (Lorazepam 2 Mg/1 Ml Vial) 0.5 mg IV Q8H PRN PRN Reason: Sedation/Anxiety Stop: 08/28/24 13:41 Magnesium Chloride (Magnesium Chloride W/Calcium 64mg Delayed Rel Tab) 64 mg PO QAM [facility] Stop: 08/29/24 08:59 Last Admin: 07/30/24 08:27 Dose: 64 mg Magnesium Hydroxide (Magnesium Hydroxide Susp 30 Ml Udc) 30 ml PO Q24H PRN PRN Reason: Constipation Stop: 08/28/24 13:41 Menthol (Cough Drop (Sugar Free) Terrie 24 Terrie/1 Box) 1 terrie BUCCAL PRN PRN PRN Reason: Sore Throat Stop: 08/28/24 20:27 Last Admin: 07/29/24 20:45 Dose: 1 terrie Metoclopramide HCl (Metoclopramide Hcl Inj 5 Mg/Ml 2 Ml Vial) 10 mg IV Q6H PRN PRN Reason: Nausea &/or Vomiting Stop: 08/28/24 13:41 Metoprolol Succinate (Metoprolol Succ 50mg Ext Rel Tab) 50 mg PO BID [facility] Stop: 08/28/24 20:59 Last Admin: 07/30/24 08:27 Dose: 50 mg Miscellaneous (Trimethoprim 100mg--Order Awaiting Action) 1 each N/A QS [facility] Stop: 08/28/24 15:59 Last Admin: 07/30/24 08:28 Dose: Not Given Multivitamins (Multivitamin Tab) 1 tab PO QAM [facility] Stop: 08/29/24 08:59 Last Admin: 07/30/24 08:29 Dose: 1 tab Naloxone HCl (Naloxone Hcl 0.4 Mg/1 Ml Vial/Carp) 0.1 mg IV Q5M PRN PRN Reason: Oversedation/Resp depression Stop: 08/28/24 13:41 Ondansetron HCl (Ondansetron Inj 2 Mg/Ml 2 Ml Vial) 4 mg IV Q6H PRN PRN Reason: Nausea &/or Vomiting Stop: 08/28/24 13:41 Ondansetron HCl (Ondansetron 4 Mg Od Tab) 4 mg PO Q6H PRN PRN Reason: Nausea Stop: 08/28/24 13:41 Oxycodone HCl (Oxycodone Hcl Ir 5 Mg Tab (Immediate Release)) 5 - 10 mg PO Q4H PRN PRN Reason: Pain & Pre PT Stop: 08/12/24 13:41 Pneumococcal Polyvalent Vaccine (Do Not Administer Pneumococcal Vaccine) 1 each N/A PRN PRN PRN Reason: Notification Stop: 08/28/24 13:41 Polyethylene Glycol (Polyethylene (Miralax) 17 Gm Pack) 17 gm PO Q6 MIRTA Stop: 08/29/24 05:59 Last Admin: 07/30/24 06:25 Dose: 17 gm Rosuvastatin Calcium (Rosuvastatin Calcium 20 Mg Tab) 40 mg PO HS [facility] Stop: 08/28/24 20:59 Last Admin: 07/29/24 22:29 Dose: 40 mg Senna/Docusate Sodium (Docusate Sodium/Senna 50/8.6mg Tab) 2 tab PO HS MIR[facility] Stop: 08/28/24 20:59 Last Admin: 07/29/24 20:48 Dose: 2 tab Sodium Biphosphate/Sodium Phosphate (Sod Phosphate/Sod Biphosphate Enema 132 Ml Btl) 132 ml UT ONE PRN PRN Reason: Constipation Stop: 08/28/24 13:41 Tamsulosin HCl (Tamsulosin Hcl 0.4 Mg Cap) 0.4 mg PO QAM MIR[facility] Stop: 08/29/24 08:59 Last Admin: 07/30/24 08:25 Dose: 0.4 mg Tramadol HCl (Tramadol Hcl 50 Mg Tablet) 50 - 100 mg PO Q4H PRN PRN Reason: Moderate-Severe pain & Pre PT Stop: 08/28/24 13:41 Trazodone HCl (Trazodone Hcl 50 Mg Tab) 50 mg PO HS MIRTA Stop: 08/28/24 20:59 Last Admin: 07/29/24 22:29 Dose: 50 mg Vitamin D (Cholecalciferol 25 Mcg (1000 Units) Tab) 25 mcg PO BID MIR[facility] Stop: 08/28/24 20:59 Last Admin: 07/30/24 08:25 Dose: 25 mcg
--- NOTE | 2024-07-30 11:53 | Orthopedic Progress Note ---
Date of Service July 30, 2024 Assessment & Plan (1) Neurogenic claudication due to lumbar spinal stenosis: Plan: At this time we will initiate physical therapy monitor his MONAE output hopefully discharge home next few days. Admission and Anticipated Discharge Date Admission Date: July 29, 2024 Subjective Patient's back pain is controlled leg symptoms markedly improved Physical Exam Physical Exam: Patient is in the chair at the bedside. Discussed when to testing. Is comfortable. Results & Data Vital Signs (Past 12 Hours) Vital Signs Temp Pulse Resp BP Pulse Ox O2 Del Method 07/30/24 07:43 Room Air 07/30/24 07:20 36.5 C 80 120/65 96 Room Air 07/30/24 03:00 36.8 C 84 18 135/75 96 Room Air Queries Orthopedic Spine Obesity: Yes
[2024-07-30] MEDS: LORATADINE 10 MG TAB PO SCH (12:15)
[2024-07-31 09:15] LABS: Hematocrit (blood only) 30.3 % (42.0-52.0); Hemoglobin 10.3 g/dl (14.0-18.0); Mean Corpuscular Hemoglobin 30.4 pg (25.0-34.0); Mean Corpuscular Volume 89.4 fL (80.0-100.0); Mean Platelet Volume 9.5 fL (9.4-12.4); Platelet Count 161 K/uL (130-400); RDW Coefficient of Variation 13.8 % (11.5-14.5); RDW Standard Deviation 44.8 fL (36.4-46.3); Red Blood Count 3.39 M/uL (4.70-6.10); White Blood Count 10.03 K/ul (4.8-10.8)
[2024-07-31 09:28] LABS: BUN Creatinine Ratio 28.1 (10-20); Creatinine Clr Calc Pharmacy 138.9 ml/min; Potassium 3.6 mmol/L (3.5-5.1)
--- NOTE | 2024-07-31 10:13 | Orthopedic Progress Note ---
Date of Service July 31, 2024 Assessment & Plan (1) Neurogenic claudication due to lumbar spinal stenosis: Plan: At this time we will continue physical therapy monitor his MONAE output anticipate discharge home tomorrow. Admission and Anticipated Discharge Date Admission Date: July 29, 2024 Subjective Patient's back pain is controlled leg symptoms markedly improved Physical Exam Physical Exam: Patient sitting up at bedside. He is comfortable. Good strength testing. Results & Data Vital Signs (Past 12 Hours) Vital Signs Temp Pulse Resp BP Pulse Ox O2 Del Method 07/31/24 07:31 36.7 C 83 16 120/68 97 Room Air Queries Orthopedic Spine Obesity: Yes
--- NOTE | 2024-07-31 11:56 | Hospitalist Progress Note ---
Date of Service July 31, 2024 Assessment & Plan (1) Neurogenic claudication due to lumbar spinal stenosis: (2) CAD (coronary artery disease): (3) LBBB (left bundle branch block): (4) Hypertension: (5) Aortic root dilation: (6) Acute postoperative anemia due to expected blood loss: Plan This is a 69-year-old male who has significant past medical history of CAD, chronic LBBB, Chronic HFrEF, aortic root dilatation, HTN, HLD, BPH, osteoarthritis who presents for elective spinal surgery by Dr. Gomez. We have been consulted for postop medical management. Neurogenic claudication due to lumbar spinal stenosis status post L3-S1 lumbar decompression fusion by Dr. Gomez, POD # 2 EBL approximately 600 mL pain/wound management per orthopedics activity and therapy as prescribed orthopedics monitor hemoglobin and MONAE drain output, preop hemoglobin 14.5 Acute blood loss anemia in setting of expected post operative blood loss and dilutional component pre op hgb 14.5, MONAE drain outpt thus far 955ml hgb today 11.6, monitor hgb CAD with history of CABG x 3 in 2009 chronic LBBB aortic root dilatation HTN/HLD pt with pre op echo Echo from 05/26/24: mildly depressed LVSEF 40-45%, mild decrease in global wall motion, grade II DD, left atrium mildly dilated, aortic root dilatation to 4.1cm pt states 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 We will follow the patient with you during their hospital stay. You can reach a member of the [facility] Hospitalist Team 26/03 via hospitalist role on tiger text. Admission and Anticipated Discharge Date Admission Date: July 29, 2024 Subjective patient was seen sitting in the chair at bedside. was nearby Denied any chest pain, shortness of breath or palpitations Review of Systems Review of Systems: All systems reviewed & are unremarkable except as noted in Subjective Physical Exam Physical Exam: General: Alert, oriented. No acute distress Skin: No noted rashes or bruises Psych: Appropriate mood and affect Neuro: difficulty with movements HEENT: NC/AT CV: RRR Resp: Breath sounds clear bilaterally, no increased effort of breathing Abdomen: Soft, nontender Extremities: No edema in lower extremities bilaterally. Results & Data Results & Data Vital Signs (Past 12 Hours) Vital Signs Temp Pulse Resp BP Pulse Ox O2 Del Method 07/31/24 08:00 Room Air 07/31/24 07:31 36.7 C 83 16 120/68 97 Room Air Diagnostic Findings Lumbar Spine X-Ray 07/29/24 09:05 FL lumbar spine 2-3V CLINICAL HISTORY: L3-S1 DECOMP AND FUSION COMPARISON STUDY: None. FLUOROSCOPY TIME: 32 seconds. Ka,r: 26.88 mGy FLUOROSCOPIC IMAGES: 3 FINDINGS: Fluoroscopy was provided during L3-S1 decompression, discectomy and pedicle screw fusion. The hardware is intact. IMPRESSION: Fluoroscopy provided during L3-S1 decompression and fusion. ACT 112: Negative or not required by law. Electronically signed by: Dimas Soriano M.D. 07/29/2024 4:29 PM
[2024-08-01 05:31] LABS: Hematocrit (blood only) 30.7 % (42.0-52.0); Hemoglobin 10.3 g/dl (14.0-18.0); Mean Corpuscular Hemoglobin 30.4 pg (25.0-34.0); Mean Corpuscular Hgb Conc 33.6 g/dL (32.0-36.0); Mean Corpuscular Volume 90.6 fL (80.0-100.0); Mean Platelet Volume 9.8 fL (9.4-12.4); Platelet Count 176 K/uL (130-400); RDW Coefficient of Variation 13.8 % (11.5-14.5); RDW Standard Deviation 45.1 fL (36.4-46.3); Red Blood Count 3.39 M/uL (4.70-6.10); White Blood Count 12.11 K/ul (4.8-10.8)
[2024-08-01 05:41] LABS: BUN Creatinine Ratio 24.6 (10-20); Calcium 8.4 mg/dl (8.6-10.3); Creatinine Clr Calc Pharmacy 128.9 ml/min; Potassium 4.1 mmol/L (3.5-5.1)
[2024-08-01 07:01] VITALS: PULSE 75; RESP 16; TEMP 98.1; O2SAT 97
--- NOTE | 2024-08-01 07:59 | Discharge Summary ---
Date of Service August 01, 2024 Admission HPI Per Admitting Provider This is a 69-year-old male presents with chronic persistent back and leg pain after failing course of nonoperative care is here for surgical invention. Principal Diagnosis Lumbar spinal stenosis with neurogenic claudication Discharge Data Allergies Allergy/AdvReac Type Severity Reaction Status Date / Time No Known Allergies Allergy Verified 07/29/24 07:46 Consultations 07/29/24 13:42 Consult Hospitalist Routine 07/29/24 14:39 HIM [Consult Health Information Management] Routine Procedures Performed Operation Date: 07/29/24 09:05 Actual Procedures p L3-S1 Decompression and Fusion, Spinal Cord Monitoring(Not Applicable) - Ricardo Gomez DO Ordered Studies 07/29/24 09:05 FL lumbar spine 2-3V Routine Hospital Course (1) Neurogenic claudication due to lumbar spinal stenosis: Patient underwent multilevel lumbar decompression fusion tolerated this well was taken to orthopedic for postoperative. Postoperatively progressed appropriately. Marked improvement of his leg symptoms. Extra strength testing. MONAE drain decreasing. Subsidy discharged home. Discharge orders instructions from the chart for further review. Total Time Total Time Spent Total Time Spent (In Minutes): 20 minutes Discharge Plan Discharge Items Patient Disposition: Home - Self-Care Reason For Visit: Spinal Stenosis with Neurogenic Claudication, Lumb Discharge Diagnosis: Lumbar spinal stenosis with neurogenic claudication Activity: As commented below Non-emergency contact: Primary Care Provider Call non-emergency contact if: you have any medication questions Follow-up/Referrals: David Donnelly MD [Primary Care Provider] - Diet: Regular Addtl Attending Provider Instructions: ACTIVITY RECOMMENDATIONS: SELF CARE INSTRUCTIONS AFTER THORACIC/LUMBAR FUSIONS 1. You may walk to your tolerance. It is good exercise for your legs and back. Expect some back and intermittent leg aches and pains. 2. You may perform "counter-top" level activities (make a sandwich, kristina with a project, etc.). 3. No bending or lifting of more than 10 pounds or back twisting of any nature (roll like a log when turning in bed). 4. You may ride in a car for 20-30 minutes at a time. No driving until after your first visit with your doctor. 5. Frequent changes of position and restricting sitting to 30 minutes at a time will help limit the amount of back spasms and stiffness you may experience. 6. You may discontinue the use of ambulatory aids (cane, crutches, etc.) once your strength and confidence allow. 7. You may export administrator the shower and let water strike your incision when you arrive home at least once daily. Do not take a tub bath, sit in a hot tub or go into a swimming pool until after your first recheck in the office. 8. You may resume previous diet. SPECIAL CARE INSTRUCTIONS: VERY IMPORTANT TO READ AND REVIEW A. Your surgical incision has been closed with a cosmetic suture under the skin that will dissolve in about 6 weeks. In 14 days, you can use a pair of clean scissors and cut the suture that is left outside of the skin at the ends of your incision. 1. The small skin tapes can be removed 7 days after surgery if they have not fallen off by that point. 2. You may keep the wound open to air as much as possible to promote healing after post-op day number 5 unless told otherwise by your doctor. 3. If you think the wound looks like it is becoming infected (redness or worsening drainage) and/or you are experiencing fever, chill or worsening back pain and muscle spasms, contact the office so that we may evaluate you as soon as possible. B. Complications are uncommon, but please contact us if you have any signs or symptoms of: 1. wound infection (fever higher than 102.5 degrees F, redness, separation of wound, drainage, or increasing pain from the incision) 2. blood clots in legs (pain, swelling, redness and warmth in legs) 3. urinary tract infection (fever higher than 102.5 degrees F, burning upon urination or increased frequency of urination) 4. nerve problems (inability to walk on your toes or heels, numbness, loss of bowel or bladder control) 5. any other symptoms that concern you C. Please call the office at if you have any concerns or questions about your operation or recovery. D. No smoking! Smoking drastically decreases the chance of a solid fusion. E. Do not take any anti-inflammatory medications (Indocin, Advil, Motrin, Aspirin, Naprosyn, etc.) as these may inhibit the chance of a solid fusion. Tylenol is okay to take for pain. MANAGING PAIN AFTER SPINAL SURGERY 1. Narcotic medication is intended for short-term use and will be provided for surgical pain. Surgical pain usually lasts for a period of 4-6 weeks. Narcotic medication includes Percocet, Vicodin, Darvocet, Tylenol #3 or Lortab. 2. Longer-term pain is more appropriately treated with non-narcotic medication such as Tylenol ES. 3. Muscle spasm is not appropriately treated with narcotics. Muscle relaxers such as Soma, Flexeril or Skelaxin can be used along with Tylenol ES. 4. Remember that we all live with some "aches and pains". This is not unusual or uncommon after an injury or as we get older. a. Back pain is expected and may include muscle spasms for 4 to 6 weeks after surgery. The pain should gradually improve. If the pain worsens for no apparent reason, please contact the office. b. Intermittent leg pain may also be experienced and should not be concerned about unless it worsens for no apparent reason. If so, please contact the office. 5. We will provide appropriate medication within the normal guidelines of their prescribed use. We will also be very cautious and aware of potential abuse and extended duration of patients' medication needs. a. Pain medications are for your comfort and to assist with sleep and rest so that the tissue can heal. They are not provided in order to return to normal activity and should not be used through the day. To do so or worsening pain at night can result from ongoing tissue damage and development of tolerance to the prescribed medicine. 6. Please allow 2-3 days to process refills. Prescriptions will not be mailed but must be picked up at the office. FOLLOW UP VISIT: Keep your scheduled follow-up appointment. Any questions, please call the office at . Pending Studies at Discharge: No Stand-Alone Forms: My [facility] Incont, Smoking Cessation Medications and DC Order Prescriptions: New tramadol 50 mg tablet 50 mg PO Q6H PRN (Reason: pain, moderate) Qty: 30 0RF oxycodone 5 mg tablet 5 mg PO Q6H PRN (Reason: pain) Qty: 30 0RF Continued multivitamin Tablet 1 tab PO QAM trazodone 50 mg Tablet 50 mg PO HS metoprolol succinate [Toprol XL] 50 mg Tablet Extended Release 24 Hr 50 mg PO BID trimethoprim 100 mg Tablet 100 mg PO PM aspirin [Aspir-81] 81 mg Tablet,Delayed Release (Dr/Ec) 81 mg PO QAM lisinopril 5 mg Tablet 5 mg PO QAM rosuvastatin 40 mg Tablet 40 mg PO HS alfuzosin [Uroxatral] 10 mg Tablet Extended Release 24 Hr 10 mg PO PM Rx Instructions: administer after the same meal each day coenzyme Q10 [Co Q-10] 200 mg Capsule 200 mg PO QAM Slow-Mag 71.5 mg Tablet,Delayed Release (Dr/Ec) 71.5 mg PO QAM Fiber Choice Tablet,Chewable 1 tab PO PM loratadine [Claritin] 10 mg Tablet 10 mg PO DAILY Vitamin D3 1 tab PO BID Discharge Orders: Discharge Order (Routine); Ordered 08/01/24 Ordered By: Ricardo Gomez Admission Data Admit Date/Time: 07/29/24 12:23 Attending Provider: Ricardo Gomez Admit Provider: Ricardo Gomez Primary Care Provider: David Donnelly Other Providers: Teri Allan; Claire Hamm
--- NOTE | 2024-08-01 09:53 | Hospitalist Progress Note ---
Date of Service August 01, 2024 Assessment & Plan (1) Neurogenic claudication due to lumbar spinal stenosis: (2) CAD (coronary artery disease): (3) LBBB (left bundle branch block): (4) Hypertension: (5) Aortic root dilation: (6) Acute postoperative anemia due to expected blood loss: Plan This is a 69-year-old male who has significant past medical history of CAD, chronic LBBB, Chronic HFrEF, aortic root dilatation, HTN, HLD, BPH, osteoarthritis who presents for elective spinal surgery by Dr. Gomez. We have been consulted for postop medical management. Neurogenic claudication due to lumbar spinal stenosis status post L3-S1 lumbar decompression fusion by Dr. Gomez, POD # 3 EBL approximately 600 mL pain/wound management per orthopedics activity and therapy as prescribed orthopedics monitor hemoglobin and MONAE drain output, preop hemoglobin 14.5 Acute blood loss anemia in setting of expected post operative blood loss and dilutional component pre op hgb 14.5, MONAE drain outpt thus far 955ml hgb 10.3 on day of discharge, monitor hgb CAD with history of CABG x 3 in 2009 chronic LBBB aortic root dilatation HTN/HLD pt with pre op echo Echo from 05/26/24: mildly depressed LVSEF 40-45%, mild decrease in global wall motion, grade II DD, left atrium mildly dilated, aortic root dilatation to 4.1cm pt states 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 We will follow the patient with you during their hospital stay. You can reach a member of the [facility] Hospitalist Team 26/03 via hospitalist role on tiger text. Admission and Anticipated Discharge Date Admission Date: July 29, 2024 Subjective Patient was seen before discharge, sitting at the side of his bed. was present and they were anticipating discharge soon Stated that he was having bowel movements Denied chest pain, shortness of breath or palpitations Review of Systems Review of Systems: All systems reviewed & are unremarkable except as noted in Subjective Physical Exam Physical Exam: General: Alert, oriented. No acute distress Skin: No noted rashes or bruises Psych: Appropriate mood and affect Neuro: difficulty with movements HEENT: NC/AT CV: RRR Resp: Breath sounds clear bilaterally, no increased effort of breathing Abdomen: Soft, nontender Extremities: compression stockings on lower extremities bilaterally. Results & Data Results & Data Vital Signs (Past 12 Hours) Vital Signs Temp Pulse Resp BP Pulse Ox O2 Del Method 08/01/24 07:00 36.7 C 75 16 129/63 97 Room Air
[2024-08-01 10:56] VITALS: BP 114/58
== END 2024-08-01 11:30 | disposition home or self-care (01) | DRG 427 ==
LOC: ASU 07:11 → 3E 12:23